=== PATIENT | female | born 1940 | race Caucasian/White ===

== ENCOUNTER 2019-01-18 13:37 | Observation (INO) ==
--- NOTE | 2019-01-18 15:55 | Consult Report ---
History of Present Illness Consult date: 01/18/19 Requesting physician: Jim Mac Consult reason: chest pain Chief complaint: Unstable angina Additional Medical History:: 1. DM, insulin requiring 2. Hyperlipidemia 3. CAD A. [facility], 01/18/2019, LAD LISA 4. Hypertension 5. Hypothyroidism History of present illness: 78 yo WF with onset of SS CP with radiation into shoulder and down left arm with associated SOA. Symptoms resolved after one SL NTG en route to ER. She was kept overnight at [facility] with normal troponins. She was released this AM and after discussing with Dr. Bhandari, she was told to come to [facility] for further evaluation. She was taken to cardiac pharmacy laboratory technician and subsequently had LISA to LAD. Currently she is resting in post op area. [facility] History Medical History: Reports:: Cancer, Diabetes Mellitus Type 2, Hyperlipidemia *Have you ever received a pneumonia vaccine?: Yes *Have you received a flu vaccine this season?: Yes Other Medical History: Reports: Hypothyroidism Laterality Cases: Left: Mastectomy Other Surgeries: Yes: Angioplasty Fractures: Yes (ankle) - *Social History Educational Level: Completed College Smoking Status: Never smoker Alcohol Intake: never Substance Use Type: denies use *Occupational Status:: retired Household Members: spouse *Travel in the last 8 weeks: None - Psychiatric History Expresses thoughts of harming self/others: None Suicide Plan Description: No Plan Family Hx:: Heart Attack Meds Home Medications Medication Instructions Recorded Confirmed Type carvedilol 12.5 mg tablet 12.5 mg PO BID #60 tab 10/22/17 Rx furosemide 40 mg tablet 40 mg PO BID #60 tab 10/22/17 Rx insulin human U-100 NPH-regulr 14 unit SUB-Q QAM ml 10/22/17 History 70-30 mix 100 unit/mL subcutaneous susp insulin human U-100 NPH-regulr 16 unit SUB-Q BID ml 10/22/17 History 70-30 mix 100 unit/mL subcutaneous susp insulin human U-100 NPH-regulr 20 unit SUB-Q .Lunch ml 10/22/17 History 70-30 mix 100 unit/mL subcutaneous susp levothyroxine 100 mcg capsule 100 mcg PO DAILY cap 10/22/17 History lisinopril 20 mg tablet 20 mg PO DAILY tab 10/22/17 History spironolactone 100 mg tablet 100 mg PO DAILY #30 tab 10/22/17 Rx Allergies Allergy/AdvReac Type Severity Reaction Status Date / Time No Known Allergies Allergy Verified 10/22/17 09:36 Review of Systems - *Cardiovascular Reports chest pain, Reports shortness of breath - *Respiratory Reports shortness of breath - *Gastrointestinal Denies abdominal pain, Denies nausea, Denies vomiting - *Genitourinary Denies blood in urine - *Musculoskeletal Denies joint pain, Denies back pain - *Neurologic Denies abnormal speech, Denies fainting, Denies tingling Exam Vital signs and Labs for Last 24 Hours: Pulse Resp BP Pulse Ox 87 18 102/47 L 96 01/18/19 15:50 01/18/19 15:50 01/18/19 15:50 01/18/19 15:50 Laboratory Results - last 24 hr 01/18/19 15:13: Activated Clotting Time > 400 H* I & O for Last 24 hours: Intake & Output 01/16/19 01/17/19 01/18/19 01/19/19 11:59 11:59 11:59 11:59 Weight 215 lb - *Routine HEENT Exam Head: Present: normocephalic Eye: Present: EOMI, PERRL ENT: Present: mucous membranes moist - *Routine Neck Exam Present: supple. Absent: JVD, carotid bruit - *Routine Respiratory Exam Present: CTA bilaterally. Absent: accessory muscle use, rales, rhonchi, wheezes - *Routine Cardiovascular Exam Present: RRR. Absent: murmur, gallop, rubs - *Routine Abdominal Exam Present: soft. Absent: tenderness, distended, guarding - *Routine Extremities Exam Present: edema. Absent: calf tenderness - *Routine Neurological Exam Present: alert, oriented X3, moving all extremities Assessment and Plan (1) Angina, class III Current visit: No Status: Acute Category: Medical Code(s): I20.9 - Angina pectoris, unspecified (2) IDDM (insulin dependent diabetes mellitus) Current visit: Yes Status: Acute Category: Medical Code(s): E11.9 - Type 2 diabetes mellitus without complications; Z79.4 - retirement (current) use of insulin (3) Obesity (BMI 30-39.9) Current visit: Yes Status: Acute Category: Medical Code(s): E66.9 - Obesity, unspecified (4) Hyperlipidemia associated with type 2 diabetes mellitus Current visit: Yes Status: Acute Category: Medical Code(s): E11.69 - Type 2 diabetes mellitus with other specified complication; E78.5 - Hyperlipidemia, unspecified (5) HTN (hypertension) Current visit: No Status: Chronic Category: Medical Code(s): I10 - Essential (primary) hypertension - Assessment and plan all Dx Assessment and Plan for all problems:: 1. ASA and brilinta for LISA to LAD 2. Atorvastatin for hyperlipidemia 3. Borderline low BP, hold anti-anginals for now. Consider ranexa for coronary spasm pain. 4. Get echo in AM.
[2019-01-18 19:39] LABS: Basophils % 0.4 % (0.1-2.0); Eosinophils % 0.5 % (0.1-12.0); Hematocrit 39.4 % (37.0-47.0); Hemoglobin 12.7 g/dL (12.2-16.2); Lymphocytes % 13.8 % (10-50); Mean Corpuscular HGB Conc 32.3 g/dL (31.8-35.4); Mean Corpuscular Volume 87.6 fl (81-99); Mean Platelet Volume 7.9 fl (7.4-10.4); Monocytes # 0.3 K/mm3 (0.1-1.0); Monocytes % 4.8 % (1.7-9.3); Neutrophils # 5.6 K/mm3 (1.8-7.8); Neutrophils % 80.6 % (37.0-80.0); Platelet Count 190 K/mm3 (142-424); Red Cell Distribution Width 13.8 % (11.5-17.5)
[2019-01-18 19:54] LABS: Anion Gap 14.7 mEq/L (5-15); Calcium 8.4 mg/dL (8.5-10.1)
--- NOTE | 2019-01-18 20:20 | History & Physical Report ---
*Admission Date: 01/18/19 *Chief complaint: chest pain *History of present illness: this wf was sent for card eval-ief complaint: Unstable angina Additional Medical History:: 1. DM, insulin requiring 2. Hyperlipidemia 3. CAD A. [facility], 01/18/2019, LAD LISA 4. Hypertension 5. Hypothyroidism History of present illness: 78 yo WF with onset of SS CP with radiation into shoulder and down left arm with associated SOA. Symptoms resolved after one SL NTG en route to ER. She was kept overnight at [facility] with normal troponins. She was released this AM and after discussing with Dr. Bhandari, she was told to come to [facility] for further evaluation. She was taken to cardiac coreroom foundry laborer and subsequently had LISA to LAD. Currently she is resting in post op area. [facility] History I have reviewed the patient's past medical history: Yes Medical History: Reports:: Cancer, Diabetes Mellitus Type 2, Hyperlipidemia *Have you ever received a pneumonia vaccine?: Yes *Have you received a flu vaccine this season?: Yes Other Medical History: Reports: Hypothyroidism Laterality Cases: Left: Mastectomy Other Surgeries: Yes: Angioplasty Fractures: Yes (ankle) - *Social History Educational Level: Completed College Smoking Status: Never smoker Alcohol Intake: never Substance Use Type: denies use *Occupational Status:: retired Household Members: spouse *Travel in the last 8 weeks: None - Psychiatric History Expresses thoughts of harming self/others: None Suicide Plan Description: No Plan Family Hx:: Heart Attack Review of Systems - Review of Systems Review of systems:: pertinent systems reviewed and negative unless documented below - Constitutional Denies fever(s) - Eyes Denies change in vision - ENT Denies sore throat - *Cardiovascular Reports chest pain at rest - *Respiratory Denies cough - *Gastrointestinal Denies abdominal pain - *Genitourinary Denies blood in urine - *Musculoskeletal Denies joint pain - Integumentary/Breasts Denies rash - *Neurologic Denies abnormal speech, Denies fainting, Denies tingling - Psychiatric Denies anxiety Meds Home Medications Medication Instructions Recorded Confirmed Type Insulin Glargine,Hum.rec.anlog 14 unit SQ HS 01/18/19 01/18/19 History [Gerardo Rios] Insulin NPH Hum/Reg Insulin Hm 10 unit SQ DIRECTED 01/18/19 01/18/19 History [Novolin 70-30 100 Unit/ml Vial] Levothyroxine Sodium 150 mcg PO DAILY 01/18/19 01/18/19 History [Levothyroxine 150mcg (0.15mg) Tab] Metformin HCl 1,000 mg PO BID 01/18/19 01/18/19 History Allergies Allergy/AdvReac Type Severity Reaction Status Date / Time No Known Allergies Allergy Verified 10/22/17 09:36 Exam Vital signs and Labs for Last 24 Hours: Pulse Resp BP Pulse Ox 71 16 129/65 94 L 01/18/19 18:50 01/18/19 18:50 01/18/19 18:50 01/18/19 18:50 Laboratory Results - last 24 hr 01/18/19 15:13: Activated Clotting Time > 400 H* 01/18/19 15:48: POC Glucose 136 H 01/18/19 19:26: WBC 7.0, RBC 4.50, Hgb 12.7, Hct 39.4, MCV 87.6, MCH 28.3, MCHC 32.3, RDW 13.8, Plt Count 190, MPV 7.9, Neut % (Auto) 80.6 H, Lymph % (Auto) 13.8, [place] % (Auto) 4.8, Eos % (Auto) 0.5, Baso % (Auto) 0.4, Neut # (Auto) 5.6, Lymph # (Auto) 1.0, [place] # (Auto) 0.3, Eos # (Auto) 0.0, Baso # (Auto) 0.0 01/18/19 19:26: Sodium 140, Potassium 4.7, Chloride 103, Carbon Dioxide 27, Anion Gap 14.7, BUN 18, Creatinine 1.06 H, Estimated Creat Clear 70, Estimated GFR 50 L, Est GFR ( Amer) 61, Glucose 273 H, Calcium 8.4 L 01/18/19 19:26: Troponin I 0.08 H I & O for Last 24 hours: Intake & Output 01/16/19 01/17/19 01/18/19 01/19/19 11:59 11:59 11:59 11:59 Intake Total 360 / 360 Output Total 450 / 450 Balance -90 / -90 Weight 215 lb - Constitutional no acute distress, obese - *Routine HEENT Exam Head: Present: normocephalic Eye: Present: EOMI, PERRL ENT: Present: mucous membranes dry - *Routine Neck Exam Present: supple - *Routine Respiratory Exam Present: CTA bilaterally - *Routine Cardiovascular Exam Present: RRR, murmur, S4 - *Routine Abdominal Exam Present: soft - *Routine Extremities Exam Absent: calf tenderness - *Routine Skin Exam Present: intact - *Routine Neurological Exam Present: alert, oriented X3, CN II-XII intact - Routine Psychiatric Exam Present: normal affect Assessment and Plan (1) Angina, class III Current visit: No Status: Acute Category: Medical Code(s): I20.9 - Angina pectoris, unspecified (2) IDDM (insulin dependent diabetes mellitus) Current visit: Yes Status: Acute Category: Medical Code(s): E11.9 - Type 2 diabetes mellitus without complications; Z79.4 - detention (current) use of insulin (3) Obesity (BMI 30-39.9) Current visit: Yes Status: Acute Category: Medical Code(s): E66.9 - Obesity, unspecified (4) Hyperlipidemia associated with type 2 diabetes mellitus Current visit: Yes Status: Acute Category: Medical Code(s): E11.69 - Type 2 diabetes mellitus with other specified complication; E78.5 - Hyperlipidemia, unspecified (5) HTN (hypertension) Current visit: No Status: Chronic Category: Medical Code(s): I10 - Essential (primary) hypertension (6) Hypothyroidism (acquired) Current visit: Yes Status: Acute Category: Medical Code(s): E03.9 - Hypothyroidism, unspecified (7) Elevated troponin I level Current visit: Yes Status: Acute Category: Medical Code(s): R74.8 - A bnormal levels of other serum enzymes
[2019-01-19 06:47] LABS: Anion Gap 12.1 mEq/L (5-15); Calcium 8.2 mg/dL (8.5-10.1); Chol/HDL Ratio 3.5 (1-3.5)
--- NOTE | 2019-01-19 07:25 | Pharmacy Consult Notes ---
[facility] Pharmacy VTE Monitoring - Patient Demographics Admission date: 01/18/19 Report Date: 01/19/19 Time: 07:25 Allergies/Adverse Reactions: Patient Allergies No Known Allergies Allergy (Verified 10/22/17 09:36) Height: 1.65 m Weight: 98.231 kg Patient Problems: Current Active Problems (Updated 01/18/19 @ 20:24 by Jim aMc MD) IDDM (insulin dependent diabetes mellitus) (Acute) Obesity (BMI 30-39.9) (Acute) Hyperlipidemia associated with type 2 diabetes mellitus (Acute) Hypothyroidism (acquired) (Acute) Elevated troponin I level (Acute) - VTE Risk Labs: VTE Related Lab Results Hgb 12.7 g/dL (12.2-16.2) 01/18/19 19:26 Hct 39.4 % (37.0-47.0) 01/18/19 19:26 Plt Count 190 K/mm3 (142-424) 01/18/19 19:26 BUN 24 mg/dL (7-18) H D 01/19/19 05:35 Creatinine 1.07 mg/dL (0.55-1.02) H 01/19/19 05:35 Estimated Creat Clear 69 mL/min (50-200) 01/19/19 05:35 Was VTE Risk Assessment Performed: Yes VTE Score: 2 VTE Risk Level: Very Low Risk - Prophylaxis VTE Prophylaxis Ordered?: Yes Types of VTE Prophylaxis: TEDS Knee High Location of Applied Device: Bilateral Lower Extremeties - VTE Diagnosis Confirmed Treatment or plan recommended: Continue Current Treatment
[2019-01-19 08:15] VITALS: BP 133/85
--- NOTE | 2019-01-19 08:20 | Progress Note ---
Subjective Date: 01/19/19 Time: 08:17 Principal diagnosis: Unstable angina Interval history: 78-year-old white female in bed in no acute distress. Patient states she feels much better since the coronary stent was placed. She feels ready to go home. Exam Vital signs and Labs for Last 24 Hours: Temp Pulse Resp BP Pulse Ox 97.6 F 70 16 133/85 93 L 01/19/19 07:53 01/19/19 08:14 01/19/19 08:14 01/19/19 08:14 01/19/19 08:14 Laboratory Results - last 24 hr 01/18/19 15:13: Activated Clotting Time > 400 H* 01/18/19 15:48: POC Glucose 136 H 01/18/19 19:26: WBC 7.0, RBC 4.50, Hgb 12.7, Hct 39.4, MCV 87.6, MCH 28.3, MCHC 32.3, RDW 13.8, Plt Count 190, MPV 7.9, Neut % (Auto) 80.6 H, Lymph % (Auto) 13.8, [place] % (Auto) 4.8, Eos % (Auto) 0.5, Baso % (Auto) 0.4, Neut # (Auto) 5.6, Lymph # (Auto) 1.0, [place] # (Auto) 0.3, Eos # (Auto) 0.0, Baso # (Auto) 0.0 01/18/19 19:26: Sodium 140, Potassium 4.7, Chloride 103, Carbon Dioxide 27, Anion Gap 14.7, BUN 18, Creatinine 1.06 H, Estimated Creat Clear 70, Estimated GFR 50 L, Est GFR ( Amer) 61, Glucose 273 H, Calcium 8.4 L 01/18/19 19:26: Troponin I 0.08 H 01/18/19 20:24: POC Glucose 300 H 01/19/19 05:35: Sodium 142, Potassium 4.1, Chloride 105, Carbon Dioxide 29, Anion Gap 12.1, BUN 24 H D, Creatinine 1.07 H, Estimated Creat Clear 69, Estimated GFR 50 L, Est GFR ( Amer) 60, Glucose 147 H D, Calcium 8.2 L, Triglycerides 72, Cholesterol 149, LDL Cholesterol 93, VLDL Cholesterol 14, HDL Cholesterol 42, Cholesterol/HDL Ratio 3.5 01/19/19 06:12: POC Glucose 149 H I & O for Last 24 hours: Intake & Output 01/16/19 01/17/19 01/18/19 01/19/19 11:59 11:59 11:59 11:59 Intake Total 720 / 720 Output Total 450 / 450 Balance 270 / 270 Weight 216 lb 9 oz - *Routine HEENT Exam Head: Present: normocephalic Eye: Present: EOMI, PERRL ENT: Present: mucous membranes moist - *Routine Respiratory Exam Present: CTA bilaterally. Absent: accessory muscle use, rales, rhonchi, wheezes - *Routine Cardiovascular Exam Present: RRR. Absent: murmur, gallop, rubs - *Routine Extremities Exam Absent: edema, calf tenderness - *Routine Neurological Exam Present: alert, oriented X3, moving all extremities Progress Note: A&P (1) Angina, class III Status: Acute Current Visit: No (2) IDDM (insulin dependent diabetes mellitus) Status: Acute Current Visit: Yes (3) Obesity (BMI 30-39.9) Status: Acute Current Visit: Yes (4) Hyperlipidemia associated with type 2 diabetes mellitus Status: Acute Current Visit: Yes (5) HTN (hypertension) Status: Chronic Current Visit: No (6) Hypothyroidism (acquired) Status: Acute Current Visit: Yes (7) Elevated troponin I level Status: Acute Current Visit: Yes Assessment and Plan for All Diagnoses:: 1. Okay for discharge from cardiology standpoint 2. Home medications including Coreg 12.5 mg twice daily Lisinopril 20 mg daily Lasix 40 mg twice daily Spironolactone 100 mg daily Aspirin 81 mg daily Brilinta 90 mg twice daily Atorvastatin 40 mg daily Ranexa 500 mg twice daily 3. Follow-up in our office in 1 week.
--- NOTE | 2019-01-19 08:49 | Discharge Summary ---
General - General Admission date:: 01/18/19 Discharge date: 01/19/19 HPI HPI: 78-year-old female patient resting quietly in bed. Reports no chest pain, respirations easy even. Reports she is ready to go home ttoday. 78 yo WF with onset of SS CP with radiation into shoulder and down left arm with associated SOA. Symptoms resolved after one SL NTG en route to ER. She was kept overnight at [facility] with normal troponins. She was released this AM and after discussing with Dr. Bhandari, she was told to come to [facility] for further evaluation. She was taken to cardiac electroplating laborer and subsequently had LISA to LAD. Currently she is resting in post op area. Hospital Course Hospital Course: 78 yo WF with onset of SS CP with radiation into shoulder and down left arm with associated SOA. Symptoms resolved after one SL NTG en route to ER. She was kept overnight at [facility] with normal troponins. She was released this AM and after discussing with Dr. Bhandari, she was told to come to [facility] for further evaluation. She was taken to cardiac electroplating laborer and subsequently had LISA to LAD. (Per Earle) Objective Vital signs: Temp Pulse Resp BP Pulse Ox 97.6 F 84 16 133/85 93 L 01/19/19 07:53 01/19/19 08:42 01/19/19 08:42 01/19/19 08:14 01/19/19 08:14 no acute distress, obese - *Routine HEENT Exam Head: Present: normocephalic. Absent: tenderness of temporal artery Eye: Present: EOMI, PERRL, normal accommodation. Absent: conjunctivae pink ENT: Present: mucous membranes dry. Absent: sinus tenderness - *Routine Neck Exam Present: trachea midline. Absent: tenderness - *Routine Respiratory Exam Present: CTA bilaterally. Absent: accessory muscle use, respiratory distress - *Routine Cardiovascular Exam Present: murmur. Absent: tachycardia, JVD - *Routine Abdominal Exam Present: soft, normoactive bowel sounds. Absent: tenderness - *Routine Extremities Exam Present: full ROM, pulses intact. Absent: cyanosis, pallor - Routine Back/Spine/Pelvis Exam Back/Spine: Present: full ROM. Absent: CVA tenderness - *Routine Skin Exam Present: intact, warm. Absent: cyanosis - *Routine Neurological Exam Present: alert, oriented X3, CN II-XII intact. Absent: sensory deficit - Routine Psychiatric Exam Present: normal affect, normal thought process. Absent: visual hallucinations Results Labs on day of discharge: Labs from last 24 hours 01/19/19 01/19/19 01/18/19 06:12 05:35 20:24 WBC RBC Hgb Hct MCV MCH MCHC RDW Plt Count MPV Neut % (Auto) Lymph % (Auto) [place] % (Auto) Eos % (Auto) Baso % (Auto) Neut # (Auto) Lymph # (Auto) [place] # (Auto) Eos # (Auto) Baso # (Auto) Activated Clotting Time Sodium 142 Potassium 4.1 Chloride 105 Carbon Dioxide 29 Anion Gap 12.1 BUN 24 H D Creatinine 1.07 H Estimated Creat Clear 69 Estimated GFR 50 L Est GFR ( Amer) 60 Glucose 147 H D POC Glucose 149 H 300 H Calcium 8.2 L Troponin I Triglycerides 72 Cholesterol 149 LDL Cholesterol 93 VLDL Cholesterol 14 HDL Cholesterol 42 Cholesterol/HDL Ratio 3.5 01/18/19 01/18/19 01/18/19 19:26 19:26 19:26 WBC 7.0 RBC 4.50 Hgb 12.7 Hct 39.4 MCV 87.6 MCH 28.3 MCHC 32.3 RDW 13.8 Plt Count 190 MPV 7.9 Neut % (Auto) 80.6 H Lymph % (Auto) 13.8 [place] % (Auto) 4.8 Eos % (Auto) 0.5 Baso % (Auto) 0.4 Neut # (Auto) 5.6 Lymph # (Auto) 1.0 [place] # (Auto) 0.3 Eos # (Auto) 0.0 Baso # (Auto) 0.0 Activated Clotting Time Sodium 140 Potassium 4.7 Chloride 103 Carbon Dioxide 27 Anion Gap 14.7 BUN 18 Creatinine 1.06 H Estimated Creat Clear 70 Estimated GFR 50 L Est GFR ( Amer) 61 Glucose 273 H POC Glucose Calcium 8.4 L Troponin I 0.08 H Triglycerides Cholesterol LDL Cholesterol VLDL Cholesterol HDL Cholesterol Cholesterol/HDL Ratio 01/18/19 01/18/19 15:48 15:13 WBC RBC Hgb Hct MCV MCH MCHC RDW Plt Count MPV Neut % (Auto) Lymph % (Auto) [place] % (Auto) Eos % (Auto) Baso % (Auto) Neut # (Auto) Lymph # (Auto) [place] # (Auto) Eos # (Auto) Baso # (Auto) Activated Clotting Time > 400 H* Sodium Potassium Chloride Carbon Dioxide Anion Gap BUN Creatinine Estimated Creat Clear Estimated GFR Est GFR ( Amer) Glucose POC Glucose 136 H Calcium Troponin I Triglycerides Cholesterol LDL Cholesterol VLDL Cholesterol HDL Cholesterol Cholesterol/HDL Ratio - Additional Comments Rounded with Dr. Mac all orders per Dr. Mac 78 yo WF with onset of SS CP with radiation into shoulder and down left arm with associated SOA. Symptoms resolved after one SL NTG en route to ER. She was kept overnight at [facility] with normal troponins. She was released this AM and after discussing with Dr. Bhandari, she was told to come to [facility] for further evaluation. She was taken to cardiac electroplating laborer and subsequently had LISA to LAD. (Per Earle) Cardiology is seen this morning and the recommendations are as follows: 1. Okay for discharge from cardiology standpoint 2. Home medications including Coreg 12.5 mg twice daily Lisinopril 20 mg daily Lasix 40 mg twice daily Spironolactone 100 mg daily Aspirin 81 mg daily Brilinta 90 mg twice daily Atorvastatin 40 mg daily Ranexa 500 mg twice daily 3. Follow-up in our office in 1 week. (Per Fred Vilchis) Patient reports she will be following up with her primary care in [place] she will be calling for appointment today Patient will be discharged home today DS: Diagnosis - Discharge Diagnosis (1) Angina, class III Status: Acute (2) IDDM (insulin dependent diabetes mellitus) Status: Acute (3) Obesity (BMI 30-39.9) Status: Acute (4) Hyperlipidemia associated with type 2 diabetes mellitus Status: Acute (5) HTN (hypertension) Status: Chronic (6) Hypothyroidism (acquired) Status: Acute (7) Elevated troponin I level Status: Acute Discharge Plan - Patient Discharge Instructions ACTIVITY: Continue current activity DIET: continue same diet Patient Instructions: Angina, Cardiac Catheterization, DI for Cardiac Catheterization, DI for Surgical Site Infection, Surgical Site Infection, DI for Procedure with IV Contrast, Anticoagulation Care - Follow up Plan Follow up with: Tha Bhandari MD [Staff Physician] - 1 week Disposition: Home, Self-Fdc Medications: Home Medications Medication Instructions Recorded Confirmed Type Insulin Glargine,Hum.rec.anlog 38 units SQ HS 01/18/19 01/19/19 History [Gerardo Rios] Insulin NPH Hum/Reg Insulin Hm 10 unit SQ DIRECTED 01/18/19 01/18/19 History [Novolin 70-30 100 Unit/ml Vial] Levothyroxine Sodium 150 mcg PO DAILY 01/18/19 01/18/19 History [Levothyroxine 150mcg (0.15mg) Tab] Metformin HCl 1,000 mg PO BID 01/18/19 01/18/19 History Aspirin [Aspirin 81mg chewable 81 mg PO DAILY 30 Days #30 tab.chew 01/19/19 Rx tab] Atorvastatin Calcium [Lipitor 40mg 40 mg PO HS 30 Days #30 tab 01/19/19 Rx Tablet] Carvedilol [Coreg 12.5mg 12.5 mg PO BID 60 Days #60 tab 01/19/19 Rx Tablet] Lisinopril [Zestril 20mg tab] 20 mg PO DAILY 30 Days #30 tab 01/19/19 Rx Ranolazine [Ranexa 500mg ER tablet] 500 mg PO BID 60 Days #60 01/19/19 Rx tab.er.12h Spironolactone [Aldactone 25mg 100 mg PO DAILY 30 Days #30 tab 01/19/19 Rx Tab] Prescriptions/Medication Reconciliation: New Spironolactone [Aldactone 25mg Tab] 100 mg PO DAILY 30 Days #30 tab Aspirin [Aspirin 81mg chewable tab] 81 mg PO DAILY 30 Days #30 tab.chew Carvedilol [Coreg 12.5mg Tablet] 12.5 mg PO BID 60 Days #60 tab Ranolazine [Ranexa 500mg ER tablet] 500 mg PO BID 60 Days #60 tab.er.12h Lisinopril [Zestril 20mg tab] 20 mg PO DAILY 30 Days #30 tab Atorvastatin Calcium [Lipitor 40mg Tablet] 40 mg PO HS 30 Days #30 tab Continued Insulin NPH Hum/Reg Insulin Hm [Novolin 70-30 100 Unit/ml Vial] 10 unit SQ DIRECTED Metformin HCl 1,000 mg PO BID Insulin Glargine,Hum.rec.anlog [Toujeo Solostar] 38 units SQ HS Levothyroxine Sodium [Levothyroxine 150mcg (0.15mg) Tab] 150 mcg PO DAILY
[2019-01-19 09:17] LABS: Basophils % 0.6 % (0.1-2.0); Eosinophils # 0.1 K/mm3 (0.0-0.4); Eosinophils % 2.1 % (0.1-12.0); Hematocrit 39.2 % (37.0-47.0); Hemoglobin 12.7 g/dL (12.2-16.2); Lymphocytes # 1.3 K/mm3 (0.7-4.5); Lymphocytes % 20.3 % (10-50); Mean Corpuscular HGB Conc 32.3 g/dL (31.8-35.4); Mean Corpuscular Volume 87.9 fl (81-99); Mean Platelet Volume 8.3 fl (7.4-10.4); Monocytes # 0.5 K/mm3 (0.1-1.0); Monocytes % 7.4 % (1.7-9.3); Neutrophils # 4.4 K/mm3 (1.8-7.8); Neutrophils % 69.6 % (37.0-80.0); Platelet Count 182 K/mm3 (142-424); Red Blood Count 4.46 M/mm3 (4.20-5.40); Red Cell Distribution Width 13.9 % (11.5-17.5); White Blood Count 6.3 K/mm3 (4.8-10.8)
--- NOTE | 2019-01-19 22:07 | Cardiology Report ---
PROCEDURE: 2-D M-mode and color Doppler study INDICATIONS FOR THE TEST: Chest pain+ COPD Heart Murmur Tobacco Smoking Palpitations Fatigue Syncope Edema Hypertension+Diabetes Mellitus+ Rheumatic Fever SOB ABDUL Obesity+Hyperlipidemia+ Family History HD Additional History , LT MASECTOMY PATIENT INFORMATION HEIGHT: 65 WEIGHT:215 GENDER: Female B/P:102/47 2-D/M-MODE INTERPRETATION: 2-D MEASUREMENTS OBSERVED VALUES IN CMS Right Ventricular Dimension (RVDd) 3.7 Interventricular Septum (Thickness)(IVsd) 1.5 Left Ventricular Internal Dimensions(LVIDd) 4.7 Left Ventricular Posterior Wall (Thickness)(LVPWd) 1.1 Aortic Root 2.6 Aortic Cusp Separation 1.4 Left Atrial Dimensions (LAD) 3.8 2D 1. Left atrium is mildly enlarged, left ventricle is normal size, mild concentric left ventricular hypertrophy, visually estimated ejection fraction 55% with normal wall motion abnormality. 2. The right atrium and right ventricle are mildly enlarged with normal contractility. 3. The aortic valve is thickened and calcified, with restriction the leaflet mobility, morphologically there is at least moderate aortic stenosis. 4. The mitral and tricuspid valve leaflets are minimally thickened. 5. The pulmonic valve is poorly visualized. 6. No significant pericardial effusion noted. DOPPLER INTERROGATION: Doppler interrogation of the aortic, mitral and tricuspid valve reveals presence of increased velocities across the aortic valve, mean gradient is 10 mmHg represents mild aortic stenosis. There is no aortic insufficiency. Mild mitral and tricuspid regurgitation, tricuspid regurgitation velocity is inadequate for calculation of the right ventricular systolic pressure, grade 1 diastolic dysfunction seen with tissue Doppler evidence of raised left atrial pressure. Inferior vena cava is not well visualized. CONCLUSION: 1. Mildly enlarged left atrium, normal left ventricular size, mild concentric left ventricular hypertrophy, visually estimated ejection fraction 55% with no regional wall motion abnormality, grade 1 diastolic dysfunction seen with tissue Doppler evidence of raised left atrial pressure. 2. Thickened and calcified aortic valve morphologically there is moderate aortic stenosis, however the mean gradient across aortic valve is only 10 mmHg represents mild aortic stenosis. There is no aortic insufficiency. 3. Mild mitral and tricuspid regurgitation 4. No significant pericardial effusion noted.
== END 2019-01-19 10:30 | disposition home or self-care (01) ==
LOC: ICU → 2ND 16:19
PROVIDERS: ADMIT Emergency Medicine; ATTEND Emergency Medicine
DX: Z68.36 Body mass index [BMI] 36.0-36.9, adult; R74.8 Abnormal levels of other serum enzymes; Z79.84 Long term (current) use of oral hypoglycemic drugs; I10 Essential (primary) hypertension; E03.9 Hypothyroidism, unspecified; I25.118 Atherosclerotic heart disease of native coronary artery with other forms of angina pectoris; E11.69 Type 2 diabetes mellitus with other specified complication; E66.9 Obesity, unspecified; E78.5 Hyperlipidemia, unspecified; Z79.899 Other long term (current) drug therapy; Z79.4 Long term (current) use of insulin
CPT/HCPCS: 36415; 80048; 80061; 82962; 84484; 85025; 85347; 92943; 93306; 93458; 99152; 99153; C1725; C1769; C1876; C9607; G0378; J1644; J2405; Q9967

== ENCOUNTER → 2019-01-26 10:16 | Outpatient (CLI) | payer MEDICARE, SELFPAY ==
[2019-01-26 10:30] LABS: Hematocrit 41.8 % (37.0-47.0); Hemoglobin 13.3 g/dL (12.2-16.2)
[2019-01-26 11:53] LABS: Blood Urea Nitrogen 23 mg/dL (7-18); Creatinine,Serum 1.15 mg/dL (0.55-1.02); Estimated Glomerular Filt Rate 46 ml/min (>60); GFR (African American) 56 ML/MIN (>60)
== END ==
PROVIDERS: Visit Provider Emergency Medicine
DX: E11.65 Type 2 diabetes mellitus with hyperglycemia (principal); Z79.84 Long term (current) use of oral hypoglycemic drugs
CPT/HCPCS: 36415; 82565; 84520; 85014; 85018

== ENCOUNTER → 2019-09-22 07:54 | Outpatient (CLI) | payer MEDICARE, SELFPAY ==
--- NOTE | 2019-09-22 07:55 | CA_ITS ---
APPROVED REPORT Emergency Doctor: Romana Nava RVT Study Quality: Good Indications: Uncontrolled HTN, Risk Factors Hypertension Hyperlipidemia Diabetes Renal Artery Doppler Origin (R) 98.6/ cm/sec Proximal (R) 110.0/ cm/sec Mid (R) 140.7/ cm/sec Distal (R) 106.3/ cm/sec Renal Aorta Ratio (R) 1.22 Segmental A. (R) 65.7/30.0 cm/sec RI: 0.54 Segmental A. Sup (R) 53.1/15.6 cm/sec Segmental A. Mid (R) 65.7/30.0 cm/sec Segmental A. Inf (R) 36.0/17.2 cm/sec Origin (L) 77.9/ cm/sec Proximal (L) 66.4/ cm/sec Mid (L) 72.7/ cm/sec Distal (L) 99.9/ cm/sec Renal Aorta Ratio (L) 0.87 Segmental A. (L) 43.0/17.7 cm/sec RI: 0.58 Segmental A. Sup (L) 38.0/12.7 cm/sec Segmental A. Mid (L) 43.0/17.7 cm/sec Segmental A. Inf (L) 38.0/12.7 cm/sec Renal Measurements Kidney Size (R) 11.4x7.0 cm Cortical Thickness (R) 1.1 cm Kidney Size (L) 10.6x7.4 cm Cortical Thickness (L) 1.0 cm Findings Study suggests normal bilateral renal arteries, no evidence of stenosis seen. Multiple cysts seen in the right kidney the largest measuring 3.1 cm. Conclusion Study suggests normal bilateral renal arteries, no evidence of stenosis seen. Multiple cysts seen in the right kidney the largest measuring 3.1 cm. Electronically signed by : Klever Link, 09/22/2019 19:11:07
--- NOTE | 2019-09-22 08:26 | US_ITS ---
PROCEDURE: US KIDNEY CLINICAL INDICATION: R63.4 Abnormal weight loss COMPARISON: CA RENAL ARTERY DUPLEX from 09/22/2019 FINDINGS: The right kidney is 11.2 x 4.1 x 6.3 centimeters. There are 2 right renal cysts largest approximately 2.9 x 1.6 centimeters. The left kidney is 10.2 x 3.9 x 3.5 centimeters.. There are 3 cysts largest approximately 1.2 centimeters contain some internal echoes suggesting complication by hemorrhage or infection.. There is no solid renal lesion or obstruction. Incidental note is made of splenomegaly and multiple calcified splenic granulomas are noted. IMPRESSION: Bilateral renal cysts. Dictated by: Klever Link 09/22/2019 14:09 Electronically signed by Klever Link in [place] 09/22/2019 14:09
== END ==
PROVIDERS: PCP Family Medicine; Visit Provider Internal Medicine
DX: I10 Essential (primary) hypertension (principal); R63.4 Abnormal weight loss
CPT/HCPCS: 76770; 93976

== ENCOUNTER 2020-06-13 01:23 | Observation (INO) | payer MEDICARE, SELFPAY ==
[2020-06-13] VITALS (23 sets, daily range): BP systolic 111–139; BP diastolic 50–85; PULSE 60–84; RESP 16–20; TEMP 34.7–37.1; O2SAT 65–99; BMI 38.8
--- NOTE | 2020-06-13 | IR_ITS ---
APPROVED REPORT Patient Location: Inpatient PROCEDURES Left heart catheterization Left ventriculogram Selective coronary angiogram Drug-eluting stent deployment to the mid dominant circumflex artery INDICATION Coronary artery disease, Unstable angina Informed consent was obtained prior to the procedure. COMPLICATIONS none Estimated Blood Loss: less than 10 mls TECHNIQUE One percent lidocaine used to anesthetize the right anterior aspect of the wrist. The right radial artery was accessed via the Seldinger technique. A 6 [place] sheath was placed in the right radial artery. 2.5 mg of verapamil, 800 mcg of nitroglycerin, 1mg Lidocaine and 5000 U Heparin were given through the arterial sheath. The trap catheter was also used to perform left heart catheterization, left ventriculogram and selective coronary angiogram. At the end of the diagnostic angiogram therapeutic heparin was administered and a JL4 guide catheter was placed in the left main artery. A Choice PT extra-support wire was placed distally in the circumflex artery and a 3.5 x 18 mm resolute howard stent was deployed at 15 jose reducing the critical stenosis to 0%. SONAL-3 flow was present before and after the procedure. At the end of the procedure the apparatus was removed the sheath was removed good hemostasis was achieved using TR banding patient was transferred to the postop holding area stable condition ANGIOGRAPHIC RESULTS The left main artery Normal The left anterior descending artery Has a stent in the ostial proximal segment which is widely patent free of in-stent restenosis with excellent proximal distal transitioning. There is additional 10 to 20% stenosis in the mid LAD The circumflex artery Is a large co-dominant vessel and has proximal tandem 20% stenoses followed by a critical greater than 90% stenosis immediately proximal to 3 obtuse marginal arteries. The right coronary artery Is a codominant vessel and has proximal 30 to 40% concentric stenosis with mild luminal irregularities distally The FERNANDEZ ventriculogram reveals Hyperdynamic at 70% The left ventricular end-diastolic pressure 10 mmHg IMPRESSION Critical disease in a codominant circumflex artery Successful stenting of a critically diseased codominant circumflex artery reducing the critical stenosis to 0% Widely patent stent in the proximal LAD Mild to moderate disease in the codominant right coronary artery which is nonflow-limiting Slightly hyperdynamic ventricle consistent with diastolic dysfunction Normal LVEDP PLAN 1. Dual antiplatelet therapy 2. LDL less than 55 3. Treatment of diastolic dysfunction 4. Avoidance of tobacco products 5. Cardiac rehabilitation 6. Risk factor modification Electronically signed by : Tha Bhandari, 06/13/2020 11:07:03
--- NOTE | 2020-06-13 01:46 | PC.NURSE ---
patient up to floor via stretcher @ 01:20
--- NOTE | 2020-06-13 01:56 | PC.NURSE ---
0138- RECTAL TEMP 94.4; PLACED ON CHAR PAWS 0157- RECTAL TEMP: 95.1
--- NOTE | 2020-06-13 03:06 | PC.NURSE ---
0242- RECTAL TEMP: 95.6
--- NOTE | 2020-06-13 03:54 | PC.NURSE ---
REPORT RECEIVED FROM [facility] AT 2307 FROM [facility] REPORT RECEIVED ON ARRIVAL FROM EMS; REPORTED LAST FSBS: 170 PT. A&OX4 AND DOES NOT C/O PAIN, N/V/D, SOA OR DIZZINESS AT THIS TIME. REMAINS ON CHAR PAWS AT THIS TIME.
[2020-06-13 03:56] LABS: Chloride 110 mmol/L (98-107)
[2020-06-13 03:57] LABS: Basophils % 0.7 % (0.1-2.0); Eosinophils # 0.1 K/mm3 (0.0-0.4); Eosinophils % 2.3 % (0.1-12.0); Hemoglobin 11.6 g/dL (12.2-16.2); Lymphocytes # 0.9 K/mm3 (0.7-4.5); Lymphocytes % 18.8 % (10-50); Mean Corpuscular HGB Conc 33.3 g/dL (31.8-35.4); Mean Corpuscular Hemoglobin 30.7 pg (27.0-31.2); Mean Corpuscular Volume 92.3 fl (81-99); Monocytes # 0.3 K/mm3 (0.1-1.0); Monocytes % 5.2 % (1.7-9.3); Neutrophils # 3.5 K/mm3 (1.8-7.8); Neutrophils % 73.1 % (37.0-80.0); Platelet Count 181 K/mm3 (142-424); Potassium 3.8 mmoL/L (3.5-5.1); Red Blood Count 3.79 M/mm3 (4.20-5.40); Red Cell Distribution Width 13.8 % (11.5-17.5); Sodium 141 mmol/L (136-145); White Blood Count 4.8 K/mm3 (4.8-10.8)
[2020-06-13 03:59] LABS: Blood Urea Nitrogen 27 mg/dl (7-17); Creatinine Clearance Estimated 68 mL/min (50-200); Estimated Glomerular Filt Rate 61 ml/min (>60); GFR (African American) 73 ML/MIN (>60)
[2020-06-13 04:00] LABS: Anion Gap 11.8 mEq/L (5-15); Calcium 8.7 mg/dl (8.4-10.2); Carbon Dioxide 23 mmol/L (22.0-30.0); Chol/HDL Ratio 3.7 (1-3.5); Cholesterol 178 mg/dl (140-200); Glucose 188 mg/dl (74-100); HDL Cholesterol 48 mg/dl (40-60); Magnesium 1.9 mg/dl (1.6-2.3); Triglycerides 76 mg/dl (30-150); VLDL Cholesterol 15 mg/dL (0-40)
[2020-06-13 04:11] LABS: Direct LDL Cholesterol 97.98 mg/dL (100-129)
[2020-06-13 04:13] LABS: Coronavirus 19 IgG Antibody Negative (Negative); Coronavirus 19 IgM Antibody Negative (Negative); Troponin I < 0.01 ng/ml (0.00-0.034)
--- NOTE | 2020-06-13 04:54 | PC.NURSE ---
PT. OFF CHAR PAWS AT THIS TIME; 98.1 RECTAL TEMP; DIAPHORESIS NOTED
[2020-06-13 05:38] LABS: POC Glucose,Bedside 197 (70-110)
--- NOTE | 2020-06-13 07:26 | P.CONPHA_ITS ---
[facility] Pharmacy VTE Monitoring - Patient Demographics Admission date: 06/12/20 Report Date: 06/13/20 Time: 07:26 Allergies/Adverse Reactions: Patient Allergies No Known Allergies Allergy (Verified 09/27/19 09:15) Height: 1.55 m Weight: 93.213 kg - VTE Risk Labs: VTE Related Lab Results Hgb 11.6 g/dL (12.2-16.2) L 06/13/20 02:30 Hct 35.0 % (37.0-47.0) L 06/13/20 02:30 Plt Count 181 K/mm3 (142-424) 06/13/20 02:30 BUN 27 mg/dl (7-17) H 06/13/20 02:30 Creatinine 0.90 mg/dl (0.52-1.04) 06/13/20 02:30 Estimated Creat Clear 68 mL/min (50-200) 06/13/20 02:30 Was VTE Risk Assessment Performed: Yes VTE Score: 5 VTE Risk Level: Low Risk Clinical Trial Participant: No - Prophylaxis VTE Prophylaxis Ordered?: Yes Types of VTE Prophylaxis: TEDS Knee High
--- NOTE | 2020-06-13 07:53 | HMH.CNCARD ---
History of Present Illness Consult date: 06/13/20 Requesting physician: Jim Mac Consult reason: chest pain Chief complaint: chest pain Additional Medical History:: 1. 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 Hyperlipidemia A. LDL 97 with HDL 48 3. CAD A. LHC, 01/18/2019, LAD LISA 4. Hypertension A. Echo, 01/2019, Mild LAE, mild conc LVH with normal LV size and EF 55% with grade I DD. Thickened and calcified aortic valve with moderate with mean gradient is only 10 mm Hg representing mild . No aortic insufficiency. Mild MR and TR. B. Renal duplex and u/s, 09/2019, normal arteries with evidence of renal cysts up to 3.1 cm. 5. Hypothyroidism, on replacement History of present illness: 80-year-old white female with known coronary artery disease, hypertension and diabetes was admitted for 4 to 6 weeks of increasing exertional anterior chest pain with radiation into the arms associated with exertional shortness of breath that resolves with rest or sublingual nitroglycerin. Patient was admitted for limiting angina pectoris that is similar to what she experienced last year prior to her LAD stenting, troponins obtained overnight were within normal limits and EKG shows no acute ST segment changes. She has had no further chest pain overnight. Cardiology consulted for evaluation recommendations. [facility] History Medical History: Reports:: Cancer, Congestive Heart Failure, Coronary Artery Disease, Hyperlipidemia, Hypertension Denies:: Diabetes Mellitus Type 2, MRSA *Have you ever received a pneumonia vaccine?: Yes *Have you received a flu vaccine this season?: No Other Medical History: Reports: Hypothyroidism, Thyroid Disease Laterality Cases: Left: Mastectomy Other Surgeries: Yes: Angioplasty, Bariatric Surgery, Cardiac Catheterization, Cholecystectomy, Coronary Stent Amputation: No Fractures: Yes (ankle) - *Social History Last grade of school completed: Advanced degree Smoking Status: Never smoker Alcohol Intake: never Substance Use Type: denies use *Occupational Status:: retired Housing: house Household Members: spouse *Travel in the last 8 weeks: None Family Hx:: Cancer, Diabetes, Heart Attack, Hyperlipidemia, Hypertension, Thyroid Disorder Meds Home Medications Medication Instructions Recorded Confirmed Type Insulin Glargine,Hum.rec.anlog 14 units SQ BID 01/18/19 06/13/20 History [Gerardo Rios] Insulin NPH Hum/Reg Insulin Hm 10 unit SQ DIRECTED 01/18/19 06/13/20 History [Novolin 70-30 100 Unit/ml Vial] Levothyroxine Sodium 150 mcg PO DAILY 01/18/19 06/13/20 History [Levothyroxine 150mcg (0.15mg) Tab] atorvastatin 40 mg tablet 20 mg PO HS tab 03/01/19 06/13/20 History Amlodipine Besylate 5 mg PO DAILY 06/13/20 06/13/20 History Aspirin [Aspirin 81mg chewable 81 mg PO DAILY 06/13/20 06/13/20 History tab] Clopidogrel Bisulfate [Clopidogrel 75 mg PO DAILY 06/13/20 06/13/20 History 75mg Tab] Furosemide [Furosemide 20mg Tab*] 20 mg PO DAILY 06/13/20 06/13/20 History Lisinopril/Hydrochlorothiazide 2 tab PO HS 06/13/20 06/13/20 History [Lisinopril-Hctz 20-25 mg Tab*] Metformin HCl 1,000 mg PO BID 06/13/20 06/13/20 History carvediloL [Carvedilol 25mg Tab] 25 mg PO DAILY 06/13/20 06/13/20 History Allergies Allergy/AdvReac Type Severity Reaction Status Date / Time No Known Allergies Allergy Verified 09/27/19 09:15 Exam Vital signs and Labs for Last 24 Hours: Temp Pulse Resp BP Pulse Ox 98.8 F 70 19 139/68 99 06/13/20 07:43 06/13/20 07:43 06/13/20 07:43 06/13/20 07:43 06/13/20 07:43 Laboratory Results - last 24 hr 06/13/20 02:30: WBC 4.8, RBC 3.79 L, Hgb 11.6 L, Hct 35.0 L, MCV 92.3, MCH 30.7, MCHC 33.3, RDW 13.8, Plt Count 181, MPV 8.0, Neut % (Auto) 73.1, Lymph % (Auto) 18.8, [place] % (Auto) 5.2, Eos % (Auto) 2.3, Baso % (Auto) 0.7, Neut # (Auto) 3.5, Lymph # (Auto) 0.9, [place] # (Auto) 0.3, Eos # (Auto) 0.1, Baso # (Auto) 0.0 06/13/20 02
--- NOTE | 2020-06-13 08:00 | CA_ITS ---
APPROVED REPORT EXAM: Comprehensive 2D, Doppler, and color-flow Echocardiogram Automotive Sales Professional: Kiya Lainez RDCS Ht: 5 ft 1 in Wt: 205lbs BSA: 1.91 BP: 110/70 mmHg Indications: CP,MURMUR,HTN,HLP,DM,SOA 2D Dimensions LVOT 1.63 cm (M/F) 1.5-2.5 M-Mode Dimensions RVDd 2.04 cm (0.9-2.6) LA Diam 3.67 cm (1.9-4.0) LVDd 5.05 cm (3.5-5.7) Ao Diam 3.51 cm (2.0-3.7) LVDs 3.93 cm (3.5-5.7) IVSd 0.88 cm (0.6-1.1) PWd 0.88 cm (0.6-1.1) EF (Teich) 44.50% FS 22.20% EDV (Teich) 121.00 mL ESV (Teich) 67.10 mL LV Diastology E Decel Time 350.00 (160-240 msec) E/A Ratio 0.8 MED E' 5.60 (< 7 cm/sec) E'/MED E' Ratio 21.27 (>14) LAT E' 9.10 (<10 cm/sec) E/LAT E' Ratio 13.09 (>14) Aortic Valve LVOT Max 116.00 (70-110 cm/s) LVOT VTI 33.06 cm AoV Peak Troy. 227.00 (50-130 cm/s) AO Peak GR. 20.80 mmHg AO Mean GR. 14.00 (<5 mmHg) AO VTI 58.99 (18-25 cm) ANANYA (VTI) 1.17 (2.5-4.5 cm2) Mitral Valve MV E Max Troy. 119.00 (40-130 cm/s) MV A Velocity 147.00 (40-130 cm/s) E/A Ratio 0.81 MV Decel. Time 350.00 (160-240 ms) MV PHT 103.00 ms Tricuspid Valve TR P. Velocity 228.00 cm/s RAP Estimate 10.00 mmHg RVSP 30.90 mmHg Left Ventricle Left atrium is mildly enlarged, left ventricle is normal size, mild concentric left ventricular hypertrophy, visually estimated ejection fraction 55% with no regional wall motion abnormality, grade 1 diastolic dysfunction seen with tissue Doppler evidence of raise left atrial pressure. Right Ventricle Right atrium and right ventricle are normal size and contractility. Aortic Valve Aortic valve is thickened and calcified with mean gradient across valve of 16 mmHg represents mild aortic stenosis, there is no significant aortic insufficiency. Mitral Valve Mitral valve has mitral annular calcification which extends in both anterior posterior mitral leaflet, there is no mitral stenosis, there is mild mitral regurgitation. Tricuspid Valve Tricuspid valve grossly normal, there is mild tricuspid regurgitation, tricuspid regurgitation jet velocity is inadequate for calculation of the right ventricular systolic pressure. Pulmonic Valve Pulmonic valve is poorly visualized. Great Vessels Aortic root is normal size. Pericardium No significant pericardial effusion noted. Conclusion 1. Mildly enlarged left atrium, normal left ventricular size, mild concentric left ventricular hypertrophy, visually estimated ejection fraction 55% with no regional wall motion abnormality, grade 1 diastolic dysfunction seen with tissue Doppler evidence of raise left atrial pressure. 2. Thickened and calcified aortic valve with mild aortic stenosis. 3. Mild mitral and tricuspid regurgitation. 4. No significant pericardial effusion noted. Electronically signed by : Glynn Alatorre, 06/14/2020 05:21:29
--- NOTE | 2020-06-13 09:21 | HMH.HP ---
*Admission Date: 06/12/20 *Chief complaint: Chest Pain *History of present illness: 80-year-old female patient transferred from [facility] ED where she was seen for increasing chest pain and shortness of breath radiating to her arms during exertion and resolving with rest or use of nitro. Patient was transferred from [facility] due to having appointment with Dr. Bhandari tomorrow regarding same complaints she does have a history of CAD, HTN, and DM. Troponins have been negative and EKG without ST segment changes, she reports no chest pain during the night awaiting cardiology to see Cardiology has seen and Rec: 1. Crescendo pattern of angina pectoris over the last 4 to 6 weeks in a patient with known coronary artery disease, diabetes, hypertension and hyperlipidemia. Patient is on 2 antianginals with episodes of hypotension at times. Would recommend proceeding with left heart catheterization for further evaluation. Continue aspirin therapy. 2. History of aortic stenosis, mild to moderate by echocardiogram 2018, repeat echocardiogram this a.m. pending 3. Diabetes mellitus, insulin requiring 4. Hyperlipidemia, on statin therapy, LDL is 97 with HDL 48 on atorvastatin therapy 5. Hypertension, controlled Further recommendations to follow pending above results. [facility] History Medical History: Reports:: Cancer, Congestive Heart Failure, Coronary Artery Disease, Hyperlipidemia, Hypertension Denies:: Diabetes Mellitus Type 2, MRSA *Have you ever received a pneumonia vaccine?: Yes *Have you received a flu vaccine this season?: No Other Medical History: Reports: Hypothyroidism, Thyroid Disease Laterality Cases: Left: Mastectomy Other Surgeries: Yes: Angioplasty, Bariatric Surgery, Cardiac Catheterization, Cholecystectomy, Coronary Stent Amputation: No Fractures: Yes (ankle) - *Social History Last grade of school completed: Advanced degree Smoking Status: Never smoker Alcohol Intake: never Substance Use Type: denies use *Occupational Status:: retired Housing: house Household Members: spouse *Travel in the last 8 weeks: None Family Hx:: Cancer, Diabetes, Heart Attack, Hyperlipidemia, Hypertension, Thyroid Disorder Review of Systems - Review of Systems Review of systems:: pertinent systems reviewed and negative unless documented below - Constitutional Denies anorexia, Denies chills - Eyes Denies blind spots, Denies loss of vision - ENT Denies abnormal hearing, Denies nasal congestion - *Cardiovascular Reports chest pain, Reports shortness of breath with activity - *Respiratory Reports shortness of breath with activity, Denies change in phlegm color, Denies chest congestion - *Gastrointestinal Denies abdominal pain, Denies loose stools - *Musculoskeletal Denies back pain, Denies joint swelling - Integumentary/Breasts Denies bleeding lesions, Denies sensitivity to light - *Neurologic Denies abnormal walking, Denies abnormal movements - Psychiatric Denies abnormal sleep pattern, Denies difficulty concentrating - Endocrine Denies cold intolerance, Denies heat intolerance - Hematologic/Lymphatic Denies easy bleeding, Denies easy bruising - Allergic/Immunologic Denies GI upset with certain foods, Denies tongue swelling Meds Home Medications Medication Instructions Recorded Confirmed Type Insulin Glargine,Hum.rec.anlog 14 units SQ BID 01/18/19 06/13/20 History [Gerardo Rios] Insulin NPH Hum/Reg Insulin Hm 10 unit SQ DIRECTED 01/18/19 06/13/20 History [Novolin 70-30 100 Unit/ml Vial] Levothyroxine Sodium 150 mcg PO DAILY 01/18/19 06/13/20 History [Levothyroxine 150mcg (0.15mg) Tab] atorvastatin 40 mg tablet 40 mg PO HS tab 03/01/19 06/13/20 History Amlodipine Besylate 5 mg PO DAILY 06/13/20 06/13/20 History Aspirin [Aspirin 81mg chewable 81 mg PO DAILY 30 Days #30 tab 06/13/20 Rx tab] Clopidogrel Bisulfate [Clopidogrel 75 mg PO DAILY 30 Days #30 tab 06/13/20 Rx 75mg Tab
[2020-06-13 11:27] LABS: CATHL Activated Clotting Time 251 SEC (74-125)
[2020-06-13 12:47] LABS: POC Glucose,Bedside 176 (70-110)
--- NOTE | 2020-06-13 14:49 | HMH.DCSUM ---
General - General Admission date:: 06/13/20 Discharge date: 06/13/20 HPI HPI: 80-year-old female patient transferred from [facility] ED where she was seen for increasing chest pain and shortness of breath radiating to her arms during exertion and resolving with rest or use of nitro. Patient was transferred from [facility] due to having appointment with Dr. Bhandari tomorrow regarding same complaints she does have a history of CAD, HTN, and DM. Troponins have been negative and EKG without ST segment changes, she reports no chest pain during the night awaiting cardiology to see Hospital Course Hospital Course: 10-year-old female patient transferred from [facility] ED where she was seen for increasing chest pain and shortness of breath radiating to her arms during exertion and resolving with rest or use of nitro. Patient was transferred from [facility] due to having appointment with Dr. Bhandari tomorrow regarding same complaints she does have a history of CAD, HTN, and DM. Troponins have been negative and EKG without ST segment changes, she reports no chest pain during the night awaiting cardiology to see 06/13/2020 patient underwent left heart catheterization and results: ANGIOGRAPHIC RESULTS The left main artery Normal The left anterior descending artery Has a stent in the ostial proximal segment which is widely patent free of in-stent restenosis with excellent proximal distal transitioning. There is additional 10 to 20% stenosis in the mid LAD The circumflex artery Is a large co-dominant vessel and has proximal tandem 20% stenoses followed by a critical greater than 90% stenosis immediately proximal to 3 obtuse marginal arteries. The right coronary artery Is a codominant vessel and has proximal 30 to 40% concentric stenosis with mild luminal irregularities distally The FERNANDEZ ventriculogram reveals Hyperdynamic at 70% The left ventricular end-diastolic pressure 10 mmHg IMPRESSION Critical disease in a codominant circumflex artery Successful stenting of a critically diseased codominant circumflex artery reducing the critical stenosis to 0% Widely patent stent in the proximal LAD Mild to moderate disease in the codominant right coronary artery which is nonflow-limiting Slightly hyperdynamic ventricle consistent with diastolic dysfunction Normal LVEDP PLAN 1. Dual antiplatelet therapy 2. LDL less than 55 3. Treatment of diastolic dysfunction 4. Avoidance of tobacco products 5. Cardiac rehabilitation 6. Risk factor modification Electronically signed by : Tha Bhandari, 06/13/2020 11:07:03 Resume home meds except hold metformin for 2 days. OK for discharge home tonight or in AM if she remains stable. Follow up in one week. Patient will be discharged home today 1. Plavix, ASA 2. Follow-up with cardiology in 1 week 3. Follow-up with primary care in 2 weeks 4. Hold Metformin for 2 days and then resume normal dosage Objective Vital signs: Temp Pulse Resp BP Pulse Ox 98.0 F 66 18 111/59 L 94 L 06/13/20 14:10 06/13/20 14:10 06/13/20 14:10 06/13/20 14:10 06/13/20 14:10 no acute distress - *Routine HEENT Exam Head: Present: normocephalic Eye: Present: EOMI ENT: Present: mucous membranes moist - *Routine Neck Exam Present: trachea midline. Absent: JVD, tracheal deviation - *Routine Respiratory Exam Present: CTA bilaterally. Absent: accessory muscle use - *Routine Cardiovascular Exam Present: RRR, murmur - *Routine Abdominal Exam Present: soft, normoactive bowel sounds. Absent: tenderness, firm - *Routine Extremities Exam Present: full ROM, pulses intact. Absent: calf tenderness - *Routine Skin Exam Present: intact, warm. Absent: erythema - *Routine Neurological Exam Present: alert, oriented X3. Absent: altered mental status - Routine Psychiatric Exam Present: normal affect, normal thought process. Absent: visual
--- NOTE | 2020-06-13 16:27 | HMH.PHACLD ---
Ginger Orquidea has received discharge medication counseling on the following medications: PATIENT CURRENTLY TAKING ASPIRIN 81 MG DAILY, ATORVASTATIN 40 MG HS, CARVEDILOL 25 MG BID, LISINOPRIL HCTZ 20/25 DAILY. PATIENT BEING STARTED ON CLOPIDOGREL 75 MG DAILY.
== END 2020-06-13 16:40 | disposition home or self-care (01) ==
PROVIDERS: Internal Medicine; Admitting Provider Emergency Medicine; PCP Family Medicine; Visit Provider Emergency Medicine
DX: I25.118 Atherosclerotic heart disease of native coronary artery with other forms of angina pectoris (principal); E11.9 Type 2 diabetes mellitus without complications; I11.0 Hypertensive heart disease with heart failure; I50.30 Unspecified diastolic (congestive) heart failure; I35.0 Nonrheumatic aortic (valve) stenosis; Z79.4 Long term (current) use of insulin; Z95.5 Presence of coronary angioplasty implant and graft; Z23 Encounter for immunization
CPT/HCPCS: G0008; 80048; 80061; 82962; 83735; 84484; 85025; 85347; 86328; 90686; 92928; 93306; 93458; 99152; 99153; C1725; C1769; C1876; C9600; G0378; J1644; Q9967

== ENCOUNTER → 2020-06-20 10:49 | Outpatient (CLI) | payer MEDICARE, SELFPAY ==
[2020-06-20 11:12] LABS: Blood Urea Nitrogen 23 mg/dl (7-17); Estimated Glomerular Filt Rate 54 ml/min (>60); GFR (African American) 65 ML/MIN (>60)
[2020-06-20 11:14] LABS: Hematocrit 34.5 % (37.0-47.0); Hemoglobin 11.2 g/dL (12.2-16.2)
== END ==
PROVIDERS: Visit Provider Emergency Medicine
DX: Z95.5 Presence of coronary angioplasty implant and graft (principal); D64.9 Anemia, unspecified
CPT/HCPCS: 36415; 82565; 84520; 85014; 85018

== ENCOUNTER 2020-10-03 12:03 | Day surgery (SDC) | payer MEDICARE, SELFPAY ==
[2020-10-03] VITALS (8 sets, daily range): BP systolic 117–163; BP diastolic 62–80; PULSE 64–74; RESP 16–20; TEMP 35.8–36.6; O2SAT 90–98; BMI 37.6
[2020-10-03 12:20] LABS: Basophils % 0.7 % (0.1-2.0); Eosinophils # 0.2 K/mm3 (0.0-0.4); Eosinophils % 4.2 % (0.1-12.0); Hematocrit 36.3 % (37.0-47.0); Hemoglobin 11.5 g/dL (12.2-16.2); Lymphocytes # 1.2 K/mm3 (0.7-4.5); Lymphocytes % 21.3 % (10-50); Mean Corpuscular HGB Conc 31.6 g/dL (31.8-35.4); Mean Corpuscular Volume 91.5 fl (81-99); Mean Platelet Volume 8.1 fl (7.4-10.4); Monocytes # 0.3 K/mm3 (0.1-1.0); Monocytes % 5.3 % (1.7-9.3); Neutrophils # 3.9 K/mm3 (1.8-7.8); Neutrophils % 68.6 % (37.0-80.0); Platelet Count 231 K/mm3 (142-424); Red Blood Count 3.96 M/mm3 (4.20-5.40); Red Cell Distribution Width 14.4 % (11.5-17.5); White Blood Count 5.7 K/mm3 (4.8-10.8)
[2020-10-03 12:28] LABS: Chloride 110 mmol/L (98-107); Sodium 144 mmol/L (136-145)
--- NOTE | 2020-10-03 12:28 | IR_ITS ---
APPROVED REPORT Patient Location: Outpatient [facility] Surgeon: MI Owen RT (R) PROCEDURES Left heart catheterization Left ventriculogram Selective coronary INDICATION Known coronary artery disease, Accelerated angina pectoris Informed consent was obtained prior to the procedure. COMPLICATIONS None Estimated Blood Loss: Less than 10 mls TECHNIQUE One percent lidocaine used to anesthetize the right anterior aspect of the wrist. The right radial artery was accessed via the Seldinger technique. A 6 Albanian sheath was placed in the right radial artery. 2.5 mg of verapamil, 800 mcg of nitroglycerin, 1mg Lidocaine and 5000 U Heparin were given through the arterial sheath. The Tenders.espa catheter was also used to perform left heart catheterization, left ventriculogram and selective coronary angiogram. At the end of the procedure the sheath was removed good hemostasis was achieved using Traclet band, patient was transferred to the postop holding area in stable condition. ANGIOGRAPHIC RESULTS The left main artery Normal The left anterior descending artery Has a stent in the ostial proximal segment which is widely patent free of in-stent restenosis with excellent proximal distal transitioning. The mid LAD is tortuous and free of stenosis. The first diagonal artery is a small to moderate size vessel and has an ostial 50 to 60% stenosis The circumflex artery Is a codominant vessel with proximal tandem 10 to 20% stenoses followed by mid vessel stent which is widely patent free of in-stent restenosis with excellent proximal and distal transitioning. There is a 2 mm terminal obtuse marginal artery with a proximal eccentric 50% stenosis The right coronary artery Is a codominant vessel and has a proximal 20 to 30% smooth stenosis with mid vessel 10% stenoses The FERNANDEZ ventriculogram reveals Normal slightly hyperdynamic at 65 to 70% The left ventricular end-diastolic pressure 20 mmHg IMPRESSION Patent coronary arteries Nonflow-limiting ischemic heart disease Slightly hyperdynamic ventricle consistent with diastolic dysfunction Mildly elevated LVEDP PLAN 1. Medical management for coronary disease 2. Treatment of diastolic dysfunction which is likely the etiology for patient's symptoms Electronically signed by : Tha Bhandari, 10/03/2020 14:03:01
[2020-10-03 12:31] LABS: Blood Urea Nitrogen 30 mg/dl (7-17); Calcium 9.9 mg/dl (8.4-10.2); Carbon Dioxide 26 mmol/L (22.0-30.0); Creatinine Clearance Estimated 68 mL/min (50-200); Estimated Glomerular Filt Rate 54 ml/min (>60); GFR (African American) 65 ML/MIN (>60); Glucose 75 mg/dl (74-100)
[2020-10-03 12:50] LABS: Coronavirus 19 IgG Antibody Negative (Negative); Coronavirus 19 IgM Antibody Negative (Negative)
== END 2020-10-03 15:53 | disposition home or self-care (01) ==
PROVIDERS: Internal Medicine; PCP Family Medicine; Visit Provider Physician Assistant
DX: E11.9 Type 2 diabetes mellitus without complications (principal); E66.9 Obesity, unspecified; I11.0 Hypertensive heart disease with heart failure; R00.2 Palpitations; R06.02 Shortness of breath; R60.0 Localized edema; R94.31 Abnormal electrocardiogram [ECG] [EKG]; I50.32 Chronic diastolic (congestive) heart failure; I25.118 Atherosclerotic heart disease of native coronary artery with other forms of angina pectoris
CPT/HCPCS: 36415; 80048; 85025; 86328; 93458; 99152; C1725; C1769; J1644; Q9967

== ENCOUNTER 2021-01-15 16:10 | Observation (INO) | payer MEDICARE, SELFPAY ==
[2021-01-15] VITALS (9 sets, daily range): BP systolic 94–163; BP diastolic 45–76; PULSE 54–95; RESP 18; TEMP 36.9; O2SAT 95–99; BMI 40.0; BMI 39.6
--- NOTE | 2021-01-15 15:58 | ECG_ITS ---
APPROVED REPORT Exam: Resting ECG HR:100 bpm ECG Measurements Heart Rate 100 AXES WI 128 P 39 QRSd 82 QRS -50 QT 364 T 78 QTc 469 Conclusion Sinus rhythm with premature atrial complexes Left anterior fascicular block Abnormal ECG Electronically signed by : Olivier Currie, 01/16/2021 08:18:41
--- NOTE | 2021-01-15 16:14 | XR_ITS ---
PROCEDURE: XR CHEST 2V CLINICAL HISTORY: CHEST PAIN COMPARISON: No exams were available for comparison FINDINGS: Heart is mildly enlarged and there is mild pulmonary vascular congestion. No definite focal infiltrate. No pleural effusion or pneumothorax. Old healed fracture the left mid rib noted. Some left axillary angela are present. IMPRESSION: Mild cardiomegaly with mild pulmonary vascular congestion. Dictated by: Sheldon Maciel 01/15/2021 17:09 Sheldon Maciel in OV 01/15/2021 17:09
--- NOTE | 2021-01-15 16:25 | PC.NURSE ---
Pt to rad.
[2021-01-15 16:28] LABS: Basophils % 0.4 % (0.1-2.0); Eosinophils # 0.1 K/mm3 (0.0-0.4); Eosinophils % 2.7 % (0.1-12.0); Hematocrit 28.5 % (37.0-47.0); Lymphocytes # 0.9 K/mm3 (0.7-4.5); Lymphocytes % 18.7 % (10-50); Mean Corpuscular HGB Conc 31.5 g/dL (31.8-35.4); Mean Corpuscular Hemoglobin 26.3 pg (27.0-31.2); Mean Corpuscular Volume 83.5 fl (81-99); Mean Platelet Volume 7.6 fl (7.4-10.4); Monocytes # 0.3 K/mm3 (0.1-1.0); Monocytes % 5.6 % (1.7-9.3); Neutrophils # 3.6 K/mm3 (1.8-7.8); Neutrophils % 72.6 % (37.0-80.0); Platelet Count 281 K/mm3 (142-424); Red Blood Count 3.41 M/mm3 (4.20-5.40); Red Cell Distribution Width 15.2 % (11.5-17.5); White Blood Count 4.9 K/mm3 (4.8-10.8)
[2021-01-15 16:30] LABS: Chloride 111 mmol/L (98-107); Sodium 139 mmol/L (136-145)
[2021-01-15 16:31] LABS: Potassium 3.8 mmoL/L (3.5-5.1)
[2021-01-15 16:33] LABS: Blood Urea Nitrogen 21 mg/dl (7-17); Creatinine Clearance Estimated 70 mL/min (50-200); Estimated Glomerular Filt Rate 61 ml/min (>60); GFR (African American) 73 ML/MIN (>60)
[2021-01-15 16:34] LABS: Anion Gap 10.8 mEq/L (5-15); Calcium 7.9 mg/dl (8.4-10.2); Carbon Dioxide 21 mmol/L (22.0-30.0); Glucose 236 mg/dl (74-100)
--- NOTE | 2021-01-15 16:37 | HMH.EDCP ---
ED Disposition Clinical Impression: Unstable angina, Hyperlipidemia associated with type 2 diabetes mellitus, Obesity (BMI 30-39.9) CAD (coronary artery disease) Qualifiers: Coronary Disease-Associated Artery/Lesion type: augustine artery [place] vs. transplanted heart: augustine heart Associated angina: with other forms of angina Qualified Code(s): I25.118 - Atherosclerotic heart disease of [place] coronary artery with other forms of angina pectoris HTN (hypertension) Qualifiers: Hypertension type: essential hypertension Qualified Code(s): I10 - Essential (primary) hypertension Disposition: Admitted As Inpatient Condition on Discharge: Fair Referrals: Blair Lora [Primary Care Provider] - - Critical Care Critical Care Time: No Attestation: On 01/15/21, the high probability of a clinically significant, sudden or life threatening deterioration of the following system(s) required my full and direct attention, intervention and personal management. The time I documented below is in addition to time spent performing reported procedures but includes the following listed in this critical care notation. Medical Decision Making - Medical Records Medical records reviewed: Yes: I reviewed the patient's medical records. - Cristian Inquiry Pt receiving controlled substance: Yes Cristian was queried for this patient: No Reason not queried -: Emergent pt cond-no time Risks and benefits of using a controlled substance: were discussed with pt by me Vital Signs: 01/15/21 16:10 01/15/21 16:39 Temperature 98.5 F Temperature Source Oral Pulse Rate 76 Pulse Rate [Left Radial] 95 H Respiratory Rate 18 Blood Pressure 133/60 Blood Pressure [Right Arm] 163/76 H Blood Pressure Mean 84 Blood Pressure Mean [Right Arm] 105 Blood Pressure Source [Right Arm] Automatic Cuff Blood Pressure Position [Right Arm] Sitting 02 Sat by Pulse Oximetry 98 99 Oxygen Delivery Method Room Air - Lab Data Lab Results 01/15/21 16:13: WBC 4.9, RBC 3.41 L, Hgb 9.0 L, Hct 28.5 L, MCV 83.5, MCH 26.3 L, MCHC 31.5 L, RDW 15.2, Plt Count 281, MPV 7.6, Neut % (Auto) 72.6, Lymph % (Auto) 18.7, [place]cd[place] % (Auto) 5.6, Eos % (Auto) 2.7, Baso % (Auto) 0.4, Neut # (Auto) 3.6, Lymph # (Auto) 0.9, Mcdowell # (Auto) 0.3, Eos # (Auto) 0.1, Baso # (Auto) 0.0 01/15/21 16:13: Sodium 139, Potassium 3.8, Chloride 111 H, Carbon Dioxide 21 L, Anion Gap 10.8, BUN 21 H, Creatinine 0.90, Estimated Creat Clear 70, Estimated GFR 61, Est GFR ( Amer) 73, Glucose 236 H, Calcium 7.9 L, Troponin I < 0.01 01/15/21 16:13: NT-Pro-B Natriuret Pep 1220 H Result diagrams: 01/15/21 16:13 01/15/21 16:13 Orders (Tests/Meds): ED MEDICATIONS Discontinued Medications Generic Name Dose Route Start Last Admin Trade Name Freq PRN Reason Stop Dose Admin Morphine Sulfate 4 mg 01/15/21 16:16 01/15/21 16:50 Morphine 4mg/Ml Syringe IV 01/15/21 16:17 4 mg ONCE ONE Administration Nitroglycerin 0.4 mg 01/15/21 16:16 01/15/21 16:50 Nitroglycerin 0.4mg Sl Tablet SL 01/15/21 16:17 0.4 mg ONCE ONE Administration Ondansetron HCl 4 mg 01/15/21 16:16 01/15/21 16:48 Ondansetron 4mg/2ml Vial IV 01/15/21 16:17 4 mg ONCE ONE Administration ORDERS Category Date Time Status XR chest 2V Stat Exams 01/15/21 16:14 Taken PTT [Activated Partial Thrombo Time] Stat Lab 01/15/21 16:16 Ordered Prothrombin Time INR Stat Lab 01/15/21 16:17 Ordered Rapid PCR Covid and Flu A/B Stat Lab 01/15/21 16:55 Ordered Troponin I Q3H Lab 01/15/21 19:15 Ordered Troponin I Q3H Lab 01/15/21 22:15 Ordered - Radiology Data #1 Image(s): Chest Image Reviewed: Yes I reviewed the patient's radiology results, Yes I reviewed the patient's radiology image Preliminary Findings: Normal/NAD, No Fracture Seen - ECG Data Tracing #1 Normal ventricular rate of 100 bpm, CA interval 120 ms, normal QTC. Sinus rhythm with occasional premature atrial contraction, nonspeci
[2021-01-15 16:43] LABS: NT Pro Brain Natriuretic Pep. 1220 pg/mL (0-450)
[2021-01-15 16:49] LABS: Troponin I < 0.01 ng/ml (0.00-0.034)
--- NOTE | 2021-01-15 16:52 | PC.NURSE ---
Dr borrero speaking with Dr Bhandari.
--- NOTE | 2021-01-15 16:54 | PC.NURSE ---
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
[2021-01-15 17:14] LABS: Coronavirus 19, PCR Not Detected (NotDetected); Influenza A, PCR Not Detected (NotDetected); Influenza B, PCR Not Detected (NotDetected)
--- NOTE | 2021-01-15 17:47 | PC.NURSE ---
REPORT CALLED TO [employer]NA [employer]EL
[2021-01-15 18:14] LABS: Prothrombin Time 11.5 seconds (10.1-12.5)
[2021-01-15 18:21] LABS: INR 0.97 (0.9-1.1)
[2021-01-15 18:45] LABS: Activated Partial Thrombo Time 21.5 seconds (22.8-30.6)
--- NOTE | 2021-01-15 19:23 | HMH.HP ---
*Admission Date: 01/15/21 *Chief complaint: Chest pain *History of present illness: This 80-year-old white female has known coronary artery disease, diabetes, hyperlipidemia. She is a patient of Dr. lBair Lora in [facility]. She presented in the emergency room at [facility] today with complaints of chest pain which has been going on for about 5 days. She has had some shortness of breath. When the pain is acute she notices her heart racing. She has edema. The patient sees Dr. Bhandari for her cardiology care. She has had 2 coronary artery stents. She has a strong family history for coronary artery disease. As stated she is diabetic and takes insulin. She has had a gastric bypass Significant in recent history is right hip replacement on November 10. Her blood count dropped down to 7.2 hemoglobin. She received 1 unit of blood. She was hospitalized at [facility]. [facility] History Medical History: Reports:: Cancer, Congestive Heart Failure, Coronary Artery Disease (History of 2 stents), Diabetes Mellitus Type 2 (Use of insulin), Hyperlipidemia, Hypertension, Peripheral Artery Disease, Peripheral Vascular Disease Denies:: Internal Pacemaker, MRSA, Seizures *Have you ever received a pneumonia vaccine?: Yes *Have you received a flu vaccine this season?: Yes Other Medical History: Reports: Hypothyroidism, Thyroid Disease Laterality Cases: Left: Mastectomy Other Surgeries: Yes: Angioplasty (2 stents), Bariatric Surgery, Cardiac Catheterization, Cholecystectomy, Coronary Stent. No: Pacemaker Amputation: No Fractures: Yes (ankle) - *Social History Last grade of school completed: Advanced degree Smoking Status: Never smoker Alcohol Intake: never Substance Use Type: denies use *Occupational Status:: retired Housing: house Household Members: spouse *Travel in the last 8 weeks: None Family Hx:: Cancer, Diabetes, Heart Attack (Both parents with coronary artery disease and a sister.), Hyperlipidemia, Hypertension, Thyroid Disorder Comment: Four children. Apparently they are in good health. Review of Systems - Constitutional Denies body ache(s) - Eyes Denies change in vision - ENT Denies dizziness - *Cardiovascular Reports chest pain, Reports chest pain at rest, Reports shortness of breath, Reports shortness of breath with activity, Reports fast heart rate - *Respiratory Reports shortness of breath with activity, Denies chest congestion, Denies cough - *Gastrointestinal Denies abdominal pain - *Genitourinary Denies abnormal vaginal bleeding - *Musculoskeletal Reports joint pain - Integumentary/Breasts Reports change in skin color (Pale since hip surgery) - *Neurologic Denies headache(s) - Psychiatric Denies behavioral changes, Denies difficulty concentrating - Hematologic/Lymphatic Denies easy bleeding Meds Home Medications Medication Instructions Recorded Confirmed Type Insulin Glargine,Hum.rec.anlog 14 units SQ BID 01/18/19 01/15/21 History [Gerardo Rios] Insulin NPH Hum/Reg Insulin Hm 10 unit SQ DIRECTED 01/18/19 01/15/21 History [Novolin 70-30 100 Unit/ml Vial] Levothyroxine Sodium 150 mcg PO DAILY 01/18/19 01/15/21 History [Levothyroxine 150mcg (0.15mg) Tab] Aspirin [Aspirin 81mg chewable 81 mg PO DAILY 30 Days #30 tab 06/13/20 01/15/21 Rx tab] Clopidogrel Bisulfate [Clopidogrel 75 mg PO DAILY 30 Days #30 tab 06/13/20 01/15/21 Rx 75mg Tab] Fluticasone Propionate 1 spray NS DAILY 06/13/20 01/15/21 History Furosemide [Furosemide 20mg Tab*] 20 mg PO DAILY PRN 06/13/20 01/15/21 History Lisinopril/Hydrochlorothiazide 2 tab PO HS 06/13/20 01/15/21 History [Lisinopril-Hctz 20-25 mg Tab*] carvediloL [Carvedilol 25mg Tab] 25 mg PO BID 06/13/20 01/15/21 History Atorvastatin Calcium [Lipitor 80mg 80 mg PO DAILY 01/15/21 01/15/21 History Tablet*] Verapamil HCl [Verapamil ER] 240 mg PO DAILY 01/15/21 01/15/21 History Allergies Allergy/AdvRe
[2021-01-15 20:12] LABS: Basophils % 0.3 % (0.1-2.0); Eosinophils # 0.1 K/mm3 (0.0-0.4); Eosinophils % 2.9 % (0.1-12.0); Hematocrit 26.7 % (37.0-47.0); Hemoglobin 8.4 g/dL (12.2-16.2); Lymphocytes # 1.1 K/mm3 (0.7-4.5); Lymphocytes % 29.1 % (10-50); Mean Corpuscular HGB Conc 31.2 g/dL (31.8-35.4); Mean Corpuscular Hemoglobin 26.1 pg (27.0-31.2); Mean Corpuscular Volume 83.6 fl (81-99); Mean Platelet Volume 7.9 fl (7.4-10.4); Monocytes # 0.2 K/mm3 (0.1-1.0); Monocytes % 5.7 % (1.7-9.3); Neutrophils # 2.4 K/mm3 (1.8-7.8); Neutrophils % 61.9 % (37.0-80.0); Platelet Count 236 K/mm3 (142-424); Red Cell Distribution Width 15.2 % (11.5-17.5); White Blood Count 3.8 K/mm3 (4.8-10.8)
[2021-01-15 20:19] LABS: POC Glucose,Bedside 207 (70-110)
[2021-01-15 20:39] LABS: Troponin I < 0.01 ng/ml (0.00-0.034)
[2021-01-15 20:52] LABS: Iron 27 ug/dL (37-170)
[2021-01-15 20:53] LABS: Thyroid Stimulating Hormone 0.02 uIU/mL (0.465-4.68)
[2021-01-15 21:01] LABS: Total Iron Binding Capacity 325 ug/dL (265-497)
[2021-01-15 21:11] LABS: Vitamin B12 322 pg/mL (239-931)
[2021-01-15 23:18] LABS: Troponin I < 0.01 ng/ml (0.00-0.034)
[2021-01-16] VITALS (10 sets, daily range): BP systolic 116–152; BP diastolic 63–83; PULSE 60–87; RESP 14–16; TEMP 36.9–37; O2SAT 95–99; BMI 39.6
--- NOTE | 2021-01-16 00:20 | PC.NURSE ---
She reports occasional SOA. Denies pain including chest pain and nausea. She has been sleeping. Purewick placed to help with I&Os. Urine is yellow, clear. She is NPO.
[2021-01-16 05:49] LABS: Basophils % 0.9 % (0.1-2.0); Eosinophils # 0.2 K/mm3 (0.0-0.4); Eosinophils % 5.4 % (0.1-12.0); Hematocrit 26.7 % (37.0-47.0); Hemoglobin 8.5 g/dL (12.2-16.2); Lymphocytes # 1.1 K/mm3 (0.7-4.5); Lymphocytes % 27.1 % (10-50); Mean Corpuscular Volume 81.4 fl (81-99); Mean Platelet Volume 7.6 fl (7.4-10.4); Monocytes # 0.3 K/mm3 (0.1-1.0); Monocytes % 7.5 % (1.7-9.3); Neutrophils # 2.4 K/mm3 (1.8-7.8); Neutrophils % 59.1 % (37.0-80.0); Platelet Count 240 K/mm3 (142-424); Red Blood Count 3.28 M/mm3 (4.20-5.40); Red Cell Distribution Width 15.4 % (11.5-17.5)
[2021-01-16 05:55] LABS: Chloride 110 mmol/L (98-107); Sodium 140 mmol/L (136-145)
[2021-01-16 05:56] LABS: Potassium 3.5 mmoL/L (3.5-5.1)
[2021-01-16 05:58] LABS: Blood Urea Nitrogen 17 mg/dl (7-17); Creatinine Clearance Estimated 70 mL/min (50-200); Estimated Glomerular Filt Rate 61 ml/min (>60); GFR (African American) 73 ML/MIN (>60)
[2021-01-16 05:59] LABS: Anion Gap 9.5 mEq/L (5-15); Calcium 7.8 mg/dl (8.4-10.2); Carbon Dioxide 24 mmol/L (22.0-30.0); Glucose 124 mg/dl (74-100)
--- NOTE | 2021-01-16 07:41 | HMH.PHAVTE ---
[facility] Pharmacy VTE Monitoring - Patient Demographics Admission date: 01/15/21 Report Date: 01/16/21 Time: 07:41 Allergies/Adverse Reactions: Patient Allergies No Known Allergies Allergy (Verified 11/06/20 11:39) Height: 1.55 m Weight: 95.254 kg Patient Problems: Current Active Problems Hypothyroidism (acquired) (Acute) Angina pectoris, crescendo (Acute) Angina concurrent with and due to arteriosclerosis of coronary artery (Acute) Anemia (Acute) Status post total hip replacement, right (Acute) Obesity (BMI 30-39.9) (Chronic) Hyperlipidemia associated with type 2 diabetes mellitus (Chronic) CAD (coronary artery disease) (Chronic) HTN (hypertension) (Chronic) Diabetes (Chronic) Edema (Chronic) Essential hypertension (Chronic) - VTE Risk Labs: VTE Related Lab Results Hgb 8.5 g/dL (12.2-16.2) L 01/16/21 05:36 Hct 26.7 % (37.0-47.0) L 01/16/21 05:36 Plt Count 240 K/mm3 (142-424) 01/16/21 05:36 PT 11.5 seconds (10.1-12.5) 01/15/21 17:00 INR 0.97 (0.9-1.1) 01/15/21 17:00 APTT 21.5 seconds (22.8-30.6) L 01/15/21 17:00 BUN 17 mg/dl (7-17) 01/16/21 05:36 Creatinine 0.90 mg/dl (0.52-1.04) 01/16/21 05:36 Estimated Creat Clear 70 mL/min (50-200) 01/16/21 05:36 - Prophylaxis VTE Prophylaxis Ordered?: Yes Types of VTE Prophylaxis: TEDS Knee High, Pharmacological Location of Applied Device: Bilateral Lower Extremeties Pharmacologic Type: Enoxaparin
--- NOTE | 2021-01-16 07:42 | HMH.CNCARD ---
History of Present Illness Consult date: 01/16/21 Requesting physician: Fred Mathis Consult reason: chest pain Chief complaint: Chest pain History of present illness: 80-year-old female admitted to [facility] with unstable angina and worsening shortness of breath. Patient states that she has been having chest pain which radiates from the left arm to across the chest for the past 5 days. States shortness of breath does accompany the chest pain. Patient states she has been having palpitations especially with exertion. Swelling noted of the lower extremities. Patient states this is not new. Patient states the swelling in her lower legs have not resolved since her hip surgery in November 2020. Patient denies dizziness. Patient does have history of coronary artery disease. Patient did undergo left heart catheterization in October 2020 which revealed patent coronary arteries, nonflow limiting ischemic heart disease, slightly hyperdynamic ventricular consistent with diastolic dysfunction and mildly elevated LVEDP. Patient is currently on Plavix and aspirin daily. Patient does have history of congestive heart failure. History of hypertension and hyperlipidemia. Last echocardiogram was in June 2020, which revealed EF 55% with no regional wall abnormality. Mild aortic stenosis noted with mild MR and TR also noted. Patient states during her hip surgery in November, her blood count was low and had to be transfused 1 unit of blood. Patient denies any active bleeding. Patient is a known diabetic. States somewhat controlled. Initial EKG revealed sinus rhythm with PAC abnormal EKG with a heart rate of 99 bpm. Hematocrit 8.5 with hemoglobin 26.7. Iron level noted low at 8.3. BNP 1220. Chest x-ray was performed which revealed mild cardiomegaly with mild pulmonary congestion. [facility]:ANGIOGRAPHIC RESULTS (10/22) The left main artery Normal The left anterior descending artery Has a stent in the ostial proximal segment which is widely patent free of in-stent restenosis with excellent proximal distal transitioning. The mid LAD is tortuous and free of stenosis. The first diagonal artery is a small to moderate size vessel and has an ostial 50 to 60% stenosis The circumflex artery Is a codominant vessel with proximal tandem 10 to 20% stenoses followed by mid vessel stent which is widely patent free of in-stent restenosis with excellent proximal and distal transitioning. There is a 2 mm terminal obtuse marginal artery with a proximal eccentric 50% stenosis The right coronary artery Is a codominant vessel and has a proximal 20 to 30% smooth stenosis with mid vessel 10% stenoses The FERNANDEZ ventriculogram reveals Normal slightly hyperdynamic at 65 to 70% The left ventricular end-diastolic pressure 20 mmHg IMPRESSION Patent coronary arteries Nonflow-limiting ischemic heart disease Slightly hyperdynamic ventricle consistent with diastolic dysfunction Mildly elevated LVEDP Echo:Conclusion(06/23) 1. Mildly enlarged left atrium, normal left ventricular size, mild concentric left ventricular hypertrophy, visually estimated ejection fraction 55% with no regional wall motion abnormality, grade 1 diastolic dysfunction seen with tissue Doppler evidence of raise left atrial pressure. 2. Thickened and calcified aortic valve with mild aortic stenosis. 3. Mild mitral and tricuspid regurgitation. 4. No significant pericardial effusion noted. CXR:FINDINGS: (01/15/21) Heart is mildly enlarged and there is mild pulmonary vascular congestion. No definite focal infiltrate. No pleural effusion or pneumothorax. Old healed fracture the left mid rib noted. Some left axillary angela are present. IMPRESSION: Mild cardiomegaly with mild pulmonary vascular congestion. Discussed plan of care with Dr. Bhnadari. Orders received from Dr. Bhandari. Due to lower extremity edema and mild cardiomegaly with mild pulmonary vascular congestion, will start patient on Lasix 40 mg
--- NOTE | 2021-01-16 08:51 | HMH.ACPN2 ---
Internal Medicine - PN: Subj *Date: 01/16/21 *Time: 09:08 Interval history: Patient had a satisfactory night. She has had no further chest pain. She did have some sleep. She is n.p.o. for cardiology visit this morning. Chest x-ray revealed mild cardiomegaly with mild pulmonary vascular congestion. She did receive IV Lasix with excellent response. Laboratory data this morning reveal hemoglobin of 8.5 hematocrit of 26.7. Blood chemistries show normal electrolytes and renal function. Iron is low at 27. Troponin I's remain normal. Vitamin B12 is low normal at 322. TSH is low at 0.02. Exam Vital signs and Labs for Last 24 Hours: Temp Pulse Resp BP Pulse Ox 98.5 F 67 18 148/67 H 98 01/15/21 18:34 01/16/21 06:00 01/15/21 18:34 01/16/21 06:00 01/16/21 06:00 Laboratory Results - last 24 hr 01/15/21 16:13: WBC 4.9, RBC 3.41 L, Hgb 9.0 L, Hct 28.5 L, MCV 83.5, MCH 26.3 L, MCHC 31.5 L, RDW 15.2, Plt Count 281, MPV 7.6, Neut % (Auto) 72.6, Lymph % (Auto) 18.7, [place] % (Auto) 5.6, Eos % (Auto) 2.7, Baso % (Auto) 0.4, Neut # (Auto) 3.6, Lymph # (Auto) 0.9, [place] # (Auto) 0.3, Eos # (Auto) 0.1, Baso # (Auto) 0.0 01/15/21 16:13: Sodium 139, Potassium 3.8, Chloride 111 H, Carbon Dioxide 21 L, Anion Gap 10.8, BUN 21 H, Creatinine 0.90, Estimated Creat Clear 70, Estimated GFR 61, Est GFR ( Amer) 73, Glucose 236 H, Calcium 7.9 L, Troponin I < 0.01 01/15/21 16:13: NT-Pro-B Natriuret Pep 1220 H 01/15/21 17:00: APTT 21.5 L 01/15/21 17:00: PT 11.5, INR 0.97 01/15/21 17:00: SARS-CoV-2 (PCR) Not detected, Influenza A Untype (PCR) Not detected, Influenza Type B (PCR) Not detected 01/15/21 19:45: POC Glucose 207 H 01/15/21 20:00: Troponin I < 0.01 01/15/21 20:00: WBC 3.8 L, RBC 3.20 L, Hgb 8.4 L, Hct 26.7 L, MCV 83.6, MCH 26.1 L, MCHC 31.2 L, RDW 15.2, Plt Count 236, MPV 7.9, Neut % (Auto) 61.9, Lymph % (Auto) 29.1, [place] % (Auto) 5.7, Eos % (Auto) 2.9, Baso % (Auto) 0.3, Neut # (Auto) 2.4, Lymph # (Auto) 1.1, [place] # (Auto) 0.2, Eos # (Auto) 0.1, Baso # (Auto) 0.0 01/15/21 20:00: Iron 27 L, TIBC 325, Iron Saturation 8.17570 L, Vitamin B12 322, TSH 0.02 L 01/15/21 20:00: Blood Type O Positive, Antibody Screen Negative 01/15/21 22:26: Troponin I < 0.01 01/16/21 05:36: WBC 4.0 L, RBC 3.28 L, Hgb 8.5 L, Hct 26.7 L, MCV 81.4, MCH 26.0 L, MCHC 32.0, RDW 15.4, Plt Count 240, MPV 7.6, Neut % (Auto) 59.1, Lymph % (Auto) 27.1, [place] % (Auto) 7.5, Eos % (Auto) 5.4, Baso % (Auto) 0.9, Neut # (Auto) 2.4, Lymph # (Auto) 1.1, [place] # (Auto) 0.3, Eos # (Auto) 0.2, Baso # (Auto) 0.0 01/16/21 05:36: Sodium 140, Potassium 3.5, Chloride 110 H, Carbon Dioxide 24, Anion Gap 9.5, BUN 17, Creatinine 0.90, Estimated Creat Clear 70, Estimated GFR 61, Est GFR ( Amer) 73, Glucose 124 H D, Calcium 7.8 L I & O for Last 24 hours: Intake & Output 01/13/21 01/14/21 01/15/21 01/16/21 11:59 11:59 11:59 11:59 Intake Total 370 / 370 Output Total 2550 / 2550 Balance -2180 / -2180 Weight 209 lb 15.986 oz - Constitutional no acute distress - *Routine Respiratory Exam Present: CTA bilaterally (Anteriorly and posteriorly) - *Routine Cardiovascular Exam Present: RRR - *Routine Abdominal Exam Present: soft, normoactive bowel sounds. Absent: tenderness - *Routine Extremities Exam Present: edema. Absent: calf tenderness Comments: Right leg is larger than the left. - *Routine Neurological Exam Present: alert, oriented X3 Assessment and Plan (1) Angina concurrent with and due to arteriosclerosis of coronary artery Status: Acute Category: Medical Code(s): I25.119 - Atherosclerotic heart disease of [place] coronary artery with unspecified angina pectoris (2) Anemia Status: Acute Qualifiers: Anemia type: iron deficiency Category: Medical Code(s): D64.9 - Anemia, unspecified (3) Status post total hip replacement, right Status: Acute Category: Surgical Code(s): Z96.641 - Presence of right artificial hip joint (
--- NOTE | 2021-01-16 09:35 | CA_ITS ---
APPROVED REPORT EXAM: Comprehensive 2D, Doppler, and color-flow Echocardiogram Stringed Instrument Assembler: Romana Nava RVT Ht: 5 ft 1 in Wt: 209lbs BSA: 1.92 BP: 148/67 mmHg Indications: CP,SOA,MILD ,CAD,CHF,ANEMIA,PALPS,EDEMA,HTN,HLD,DM 2D Dimensions LVOT 1.96 cm (M/F) 1.5-2.5 LA Volume 34.10 mL LA Volume Index 17.76 mL/m2 (M/F) 16-34 M-Mode Dimensions RVDd 2.46 cm (0.9-2.6) LA Diam 3.39 cm (1.9-4.0) LVDd 3.74 cm (3.5-5.7) Ao Diam 3.54 cm (2.0-3.7) LVDs 2.42 cm (3.5-5.7) IVSd 1.51 cm (0.6-1.1) PWd 0.57 cm (0.6-1.1) EF (Teich) 65.40% FS 35.30% EDV (Teich) 59.60 mL ESV (Teich) 20.60 mL LV Diastology E Decel Time 307.00 (160-240 msec) E/A Ratio 0.7 MED E' 4.10 (< 7 cm/sec) E'/MED E' Ratio 25.15 (>14) LAT E' 6.50 (<10 cm/sec) E/LAT E' Ratio 15.86 (>14) Aortic Valve LVOT Max 110.00 (70-110 cm/s) LVOT VTI 32.72 cm AoV Peak Troy. 280.00 (50-130 cm/s) AO Peak GR. 31.40 mmHg AO Mean GR. 16.60 (<5 mmHg) AO VTI 65.47 (18-25 cm) ANANYA (VTI) 1.51 (2.5-4.5 cm2) Mitral Valve MV E Max Troy. 103.00 (40-130 cm/s) MV A Velocity 143.00 (40-130 cm/s) E/A Ratio 0.72 MV Decel. Time 307.00 (160-240 ms) MV PHT 90.00 ms Pulmonary Valve PV Peak Velocity 95.00 (50-150 cm/s) Tricuspid Valve TR P. Velocity 168.00 cm/s RAP Estimate 10.00 mmHg RVSP 21.30 mmHg Left Ventricle Left atrium is mildly enlarged, left ventricle is normal size, mild concentric left ventricular hypertrophy, visually estimated ejection fraction 55% with no regional wall motion abnormality, grade 1 diastolic dysfunction seen with tissue Doppler evidence of raise left atrial pressure. Right Ventricle Right atrium and right ventricle are normal size and contractility. Aortic Valve Aortic valve is thickened and calcified, mean gradient across valve is 16 mmHg, valve area is 1.6 cm??? represents mild aortic stenosis, there is no significant aortic insufficiency. Mitral Valve Mitral valve has mitral annular calcification, leaflets are minimally thickened, there is no mitral stenosis, there is mild mitral regurgitation. Tricuspid Valve Tricuspid valve is grossly normal, there is mild tricuspid regurgitation, tricuspid regurgitation jet velocity is inadequate for calculation of the right ventricular systolic pressure. Pulmonic Valve Pulmonic valve is poorly visualized. Great Vessels Aortic root is normal size. Inferior vena cava is normal size with normal inspiratory collapse. Pericardium No significant pericardial effusion noted. Conclusion 1. Mildly enlarged left atrium, normal left ventricular size, mild concentric left ventricular hypertrophy, visually estimated ejection fraction 55% with no regional wall motion abnormality, grade 1 diastolic dysfunction seen with tissue Doppler evidence of raise left atrial pressure. 2. Thickened and calcified aortic valve with mild aortic stenosis, valve area is 1.6 cm???, there is no significant aortic insufficiency. 3. Mild mitral and tricuspid regurgitation. 4. No significant pericardial effusion noted, inferior vena cava is normal size with normal inspiratory collapse. Electronically signed by : Glynn Alatorre, 01/16/2021 10:42:17
[2021-01-16 09:45] LABS: Reticulocyte % (Auto) 1.8 % (0.9-3.2)
[2021-01-16 10:56] LABS: POC Glucose,Bedside 135 (70-110)
--- NOTE | 2021-01-16 11:21 | HMH.PHAINT ---
home medication list clarified using list from PCP Dr Blair Lora's office and from outpatient pharmacy
--- NOTE | 2021-01-16 12:57 | PC.NURSE ---
VICKY MORENO APRN FROM CARDIOLOGY MADE AWARE OF PT TACHYCARDIA IN THE 130'S FOLLOWED BY BRADYCARDIA.
--- NOTE | 2021-01-16 18:50 | PC.NURSE ---
SHE IS AOX4, ABLE TO MAKE NEEDS KNOWN TO STAFF, SHE WAS TACHYCARDIC THIS MORNING BUT HAS IMPROVED FOLLOWING ADMINISTRATION OF VERAPAMIL THIS AFTERNOON. SHE HAS NOT C/O CHEST PAIN THIS SHIFT. DOES NOT REQUIRE O2 SUPPORT. PUREWICK IN PLACE FOR COMFORT. SHE HAS DIURESED WELL. NO NEEDS VOICED.
[2021-01-16 20:35] LABS: POC Glucose,Bedside 228 (70-110)
[2021-01-16 20:35] LABS: POC Glucose,Bedside 170 (70-110)
[2021-01-16 20:35] LABS: POC Glucose,Bedside 135 (70-110)
[2021-01-16 23:17] LABS: POC Glucose,Bedside 223 (70-110)
[2021-01-17] VITALS (7 sets, daily range): BP systolic 84–135; BP diastolic 47–68; PULSE 60–94; RESP 16–24; TEMP 36.6–36.8; O2SAT 97–99; BMI 37.4
--- NOTE | 2021-01-17 03:43 | PC.NURSE ---
No acute changes this shift. Pt slept well all shift. A/O x4. Pt complained of back pain and admin tylenol X1 this shift. Patient's O2 started to decline around high 80's while sleeping, administered O2 at 2L NC. pt tolerated well. Pt also had one nausea spell, admin zofran per MAR with relief. Purewick in place. Pt can make needs known to staff, VSS, no concerns at this time.
[2021-01-17 05:15] LABS: POC Glucose,Bedside 292 (70-110)
--- NOTE | 2021-01-17 08:07 | HMH.ACPN2 ---
Internal Medicine - PN: Subj *Date: 01/17/21 *Time: 08:07 Interval history: Patient denies any chest pain today. She states her heart rate does still tachycardic. She slept a little bit better last night and did eat some of her breakfast this morning. Exam Vital signs and Labs for Last 24 Hours: Temp Pulse Resp BP Pulse Ox 98.0 F 72 16 114/59 L 99 01/17/21 03:59 01/17/21 04:00 01/17/21 03:59 01/17/21 03:59 01/17/21 03:59 Laboratory Results - last 24 hr 01/16/21 05:12: POC Glucose 135 H 01/16/21 05:36: Retic Count (auto) 1.8 01/16/21 10:47: POC Glucose 135 H 01/16/21 17:22: POC Glucose 228 H 01/16/21 20:24: POC Glucose 170 H 01/16/21 22:59: POC Glucose 223 H 01/17/21 05:07: POC Glucose 292 H I & O for Last 24 hours: Intake & Output 01/14/21 01/15/21 01/16/21 01/17/21 11:59 11:59 11:59 11:59 Intake Total 370 / 370 1078 / 1078 Output Total 2550 / 2550 3600 / 3600 Balance -2180 / -2180 -2522 / -2522 Weight 209 lb 15.986 oz 198 lb 2 oz Radiology Reports for the Last 24 Hours: Echo Conclusion 1. Mildly enlarged left atrium, normal left ventricular size, mild concentric left ventricular hypertrophy, visually estimated ejection fraction 55% with no regional wall motion abnormality, grade 1 diastolic dysfunction seen with tissue Doppler evidence of raise left atrial pressure. 2. Thickened and calcified aortic valve with mild aortic stenosis, valve area is 1.6 cm???, there is no significant aortic insufficiency. 3. Mild mitral and tricuspid regurgitation. 4. No significant pericardial effusion noted, inferior vena cava is normal size with normal inspiratory collapse. - Constitutional no acute distress - *Routine Respiratory Exam Present: CTA bilaterally - *Routine Cardiovascular Exam Present: irregular rhythm - *Routine Abdominal Exam Present: soft, normoactive bowel sounds. Absent: tenderness - *Routine Extremities Exam Absent: cyanosis, clubbing, edema - *Routine Skin Exam Present: warm. Absent: rash - *Routine Neurological Exam Present: alert, oriented X3 Assessment and Plan (1) Angina concurrent with and due to arteriosclerosis of coronary artery Status: Acute Category: Medical Code(s): I25.119 - Atherosclerotic heart disease of [place] coronary artery with unspecified angina pectoris (2) Anemia Status: Acute Qualifiers: Anemia type: iron deficiency Category: Medical Code(s): D64.9 - Anemia, unspecified (3) Status post total hip replacement, right Status: Acute Category: Surgical Code(s): Z96.641 - Presence of right artificial hip joint (4) CAD (coronary artery disease) Status: Chronic Qualifiers: Coronary Disease-Associated Artery/Lesion type: [place] artery [place] vs. transplanted heart: [place] heart Associated angina: with other forms of angina Qualified Code(s): I25.118 - Atherosclerotic heart disease of [place] coronary artery with other forms of angina pectoris Category: Medical Code(s): I25.10 - Atherosclerotic heart disease of [place] coronary artery without angina pectoris (5) HTN (hypertension) Status: Chronic Qualifiers: Hypertension type: essential hypertension Qualified Code(s): I10 - Essential (primary) hypertension Category: Medical Code(s): I10 - Essential (primary) hypertension (6) Hyperlipidemia associated with type 2 diabetes mellitus Status: Chronic Category: Medical Code(s): E11.69 - Type 2 diabetes mellitus with other specified complication; E78.5 - Hyperlipidemia, unspecified (7) Hypothyroidism (acquired) Status: Acute Category: Medical Code(s): E03.9 - Hypothyroidism, unspecified (8) Diabetes Status: Chronic Qualifiers: Diabetes mellitus type: type 2 Diabetes mellitus 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
--- NOTE | 2021-01-17 08:12 | HMH.PNCARD ---
Subjective Date: 01/17/21 Time: 08:00 Principal diagnosis: chest pain Interval history: 80-year-old female admitted to [facility] with unstable angina and worsening shortness of breath yesterday. Patient denies chest pain, tightness or pressure. Patient states her shortness of breath has improved since admission. Lower extremity edema has improved. Patient states her legs do not hurt as much since having the diuretics. Patient is down 2 to 3 pounds since receiving diuretics yesterday. Patient states she has been having palpitations especially with exertion. Patient does have history of coronary artery disease. Patient did undergo left heart catheterization in October 2020 which revealed patent coronary arteries, nonflow limiting ischemic heart disease, slightly hyperdynamic ventricular consistent with diastolic dysfunction and mildly elevated LVEDP. Patient is currently on Plavix and aspirin daily. Patient does have history of congestive heart failure. History of hypertension and hyperlipidemia. Echocardiogram revealed EF 55% with no regional wall abnormality, thickened and calcified aortic valve with mild aortic stenosis but there is no significant aortic insufficiency. Mild MR and TR noted. Patient was started on iron 325 mg p.o. twice daily due to low iron level. Reticulocyte count was within normal. Patient denies any active bleeding. Due to patient's anemia and low iron would like to have surgery consult today for possible colonoscopy. Patient does have history of breast cancer and thyroid cancer. court monitor reveals sinus rhythm with PACs. Patient's heart rate ranges from 70 bpm to 118 bpm. Patient is hypotensive this a.m. Patient is currently on verapamil and carvedilol. Medications may need to be adjusted. BMP pending at this time. Discussed plan of care with Dr. Bhandari. Orders received from Dr. Bhandari. Consult surgery due to anemia and iron deficiency for possible colonoscopy. Patient does have history of breast cancer and thyroid cancer. Please continue to monitor patient status. Stop Lasix due to appropriate diuresing achieved. Please notify cardiology of any changes in patient status. Echo:Conclusion 1. Mildly enlarged left atrium, normal left ventricular size, mild concentric left ventricular hypertrophy, visually estimated ejection fraction 55% with no regional wall motion abnormality, grade 1 diastolic dysfunction seen with tissue Doppler evidence of raise left atrial pressure. 2. Thickened and calcified aortic valve with mild aortic stenosis, valve area is 1.6 cm???, there is no significant aortic insufficiency. 3. Mild mitral and tricuspid regurgitation. 4. No significant pericardial effusion noted, inferior vena cava is normal size with normal inspiratory collapse. Thank you for allowing cardiology to participate in the care of this patient. Exam Vital signs and Labs for Last 24 Hours: Temp Pulse Resp BP Pulse Ox 98.0 F 72 16 114/59 L 99 01/17/21 03:59 01/17/21 04:00 01/17/21 03:59 01/17/21 03:59 01/17/21 03:59 Laboratory Results - last 24 hr 01/16/21 05:12: POC Glucose 135 H 01/16/21 05:36: Retic Count (auto) 1.8 01/16/21 10:47: POC Glucose 135 H 01/16/21 17:22: POC Glucose 228 H 01/16/21 20:24: POC Glucose 170 H 01/16/21 22:59: POC Glucose 223 H 01/17/21 05:07: POC Glucose 292 H I & O for Last 24 hours: Intake & Output 01/14/21 01/15/21 01/16/21 01/17/21 23:59 23:59 23:59 23:59 Intake Total 360 / 360 970 / 970 118 / 118 Output Total 1050 / 1600 4700 / 4700 400 / 400 Balance -690 / -1240 -3730 / -3730 -282 / -282 Weight 210 lb 209 lb 15.986 oz 198 lb 2 oz - Constitutional no acute distress, obese, cooperative - *Routine HEENT Exam Head: Present: normocephalic ENT: Present: mucous membranes moist - *Routine Neck Exam Present: supple, full ROM, normal carotid upstroke. Absent: JVD, carotid bruit, lymphadenopathy - *Routine Respiratory Ex
[2021-01-17 09:25] LABS: MANUAL DIFFERENTIAL MANUAL DIFFERENTIAL (MANUAL DIFF)
[2021-01-17 09:36] LABS: Chloride 104 mmol/L (98-107); Potassium 3.7 mmoL/L (3.5-5.1); Sodium 141 mmol/L (136-145)
[2021-01-17 09:39] LABS: Blood Urea Nitrogen 25 mg/dl (7-17); Creatinine Clearance Estimated 44 mL/min (50-200); Estimated Glomerular Filt Rate 34 ml/min (>60); GFR (African American) 41 ML/MIN (>60)
[2021-01-17 09:40] LABS: Anion Gap 10.7 mEq/L (5-15); Carbon Dioxide 30 mmol/L (22.0-30.0); Glucose 226 mg/dl (74-100)
[2021-01-17 09:56] LABS: Basophils % 0.6 % (0.1-2.0); Eosinophils # 0.2 K/mm3 (0.0-0.4); Eosinophils % 2.7 % (0.1-12.0); Hematocrit 28.4 % (37.0-47.0); Hemoglobin 9.1 g/dL (12.2-16.2); Lymphocytes # 1.2 K/mm3 (0.7-4.5); Lymphocytes % 20.7 % (10-50); Mean Corpuscular Hemoglobin 25.9 pg (27.0-31.2); Mean Corpuscular Volume 81.2 fl (81-99); Mean Platelet Volume 7.7 fl (7.4-10.4); Monocytes # 0.5 K/mm3 (0.1-1.0); Monocytes % 8.5 % (1.7-9.3); Neutrophils % 67.5 % (37.0-80.0); Platelet Count 282 K/mm3 (142-424); Red Cell Distribution Width 15.3 % (11.5-17.5); White Blood Count 5.9 K/mm3 (4.8-10.8)
[2021-01-17 10:06] LABS: Eosinophils % 3 % (0-3); Lymphocytes % 21 % (10-50); Monocytes % 10 % (2-9); Neutrophils % 66 % (42-76); Nucleated Red Blood Cells 1; Total Cells Counted 100
[2021-01-17 10:07] LABS: Microcytosis 1+; Platelet Estimate Normal
--- NOTE | 2021-01-17 11:21 | HMH.GSCON ---
*Admission Date: 01/15/21 *Reason for consult:: Anemia *History of present illness: This is a 80-year-old female seen in consultation from the cardiology service for evaluation regarding anemia. Please see truncated HPI from cardiology evaluation forwarded below. She states that she was diagnosed with anemia prior to an orthopedic intervention earlier this year. She did undergo blood transfusion at the time of her orthopedic intervention. Per her report she came into the hospital before the surgery (November) around 11 and dropped to about 7 before surgery even happened . Since discharge status post surgery she reports being low but slowly improving . Forwarded from cardiology evaluation: 80-year-old female admitted to [facility] with unstable angina and worsening shortness of breath yesterday. Patient denies chest pain, tightness or pressure. Patient states her shortness of breath has improved since admission. Lower extremity edema has improved. Patient states her legs do not hurt as much since having the diuretics. Patient is down 2 to 3 pounds since receiving diuretics yesterday. Patient states she has been having palpitations especially with exertion. Patient does have history of coronary artery disease. Patient did undergo left heart catheterization in October 2020 which revealed patent coronary arteries, nonflow limiting ischemic heart disease, slightly hyperdynamic ventricular consistent with diastolic dysfunction and mildly elevated LVEDP. Patient is currently on Plavix and aspirin daily. Patient does have history of congestive heart failure. History of hypertension and hyperlipidemia. Echocardiogram revealed EF 55% with no regional wall abnormality, thickened and calcified aortic valve with mild aortic stenosis but there is no significant aortic insufficiency. Mild MR and TR noted. Patient was started on iron 325 mg p.o. twice daily due to low iron level. Reticulocyte count was within normal. Patient denies any active bleeding. Due to patient's anemia and low iron would like to have surgery consult today for possible colonoscopy. Patient does have history of breast cancer and thyroid cancer. [place] court [place] law clerk reveals sinus rhythm with PACs. Patient's heart rate ranges from 70 bpm to 118 bpm. Patient is hypotensive this a.m. Patient is currently on verapamil and carvedilol. Medications may need to be adjusted. BMP pending at this time. Discussed plan of care with Dr. Bhandari. Orders received from Dr. Bhandari. Consult surgery due to anemia and iron deficiency for possible colonoscopy. Patient does have history of breast cancer and thyroid cancer. Please continue to monitor patient status. Stop Lasix due to appropriate diuresing achieved. Please notify cardiology of any changes in patient status. Review of Systems - Constitutional Denies chills - ENT Denies difficulty swallowing - *Cardiovascular Reports leg swelling - *Respiratory Denies cough - *Gastrointestinal Denies vomiting blood, Denies bright, red blood in stools, Denies black, tarry stools, Denies nausea - *Genitourinary Denies blood in urine - *Neurologic Denies behavioral changes, Denies dizziness, Denies headache(s) - Psychiatric Denies anxiety - Hematologic/Lymphatic Reports easy bruising - Allergic/Immunologic Denies wheezing [facility] History Medical History: Reports:: Cancer, Congestive Heart Failure, Coronary Artery Disease (History of 2 stents), Diabetes Mellitus Type 2 (Use of insulin), Hyperlipidemia, Hypertension, Peripheral Artery Disease, Peripheral Vascular Disease Denies:: Internal Pacemaker, MRSA, Seizures *Have you ever received a pneumonia vaccine?: Yes *Have you received a flu vaccine this season?: Yes Other Medical History: Reports: Hypothyroidism, Thyroid Disease Laterality Cases: Left: Mastectomy Other Surgeries: Yes: Angioplasty (2 stents), Bariatric Surgery, Cardiac Catheterization, Cholecystectomy, Coronary Stent. No: P
[2021-01-17 13:00] LABS: POC Glucose,Bedside 244 (70-110)
--- NOTE | 2021-01-17 16:15 | PC.NURSE ---
PT IS SITTING UP IN THE CHAIR WITH FAMILY IN THE ROOM. NO COMPLAINTS OF DISCOMFORT. PT IS REALLY WANTING TO GO HOME. TOLERATED TAKING A SHOWER THIS SHIFT WITH VERY MINIMAL ASSISTANCE. EATING AND DRINKING WELL. LUNG SOUNDS CLEAR. ABDOMEN SOFT/NON TENDER WITH ACTIVE BOWEL SOUNDS. 2+ PITTING EDEMA NOTED TO BLE. VSS. PT HAS BEEN AMBULATING TO THE BATHROOM WITH WALKER. STOOL SPECIMEN COLLECTED AND SENT TO LAB. CONSULTED WITH PT AND HE STATED THAT HE DOES FEEL THAT PT NEEDS AN EGD AND COLONOSCOPY BUT HIM AND THE PT BOTH THOUGHT IT WOULD BE BETTER FOR HER TO FOLLOW UP WITH HIM 1 WEEK AFTER DISCHARGE AND DO THE EGD AND COLONOSCOPY OUTPATIENT. PT WILL ALSO HAVE A 1 WEEK FOLLOW UP WITH CARDIOLOGY AFTER DISCHARGE. WILL CONTINUE TO MONITOR.
[2021-01-17 17:22] LABS: POC Glucose,Bedside 127 (70-110)
[2021-01-17 20:15] LABS: POC Glucose,Bedside 270 (70-110)
[2021-01-17 20:46] LABS: Occult Blood,Stool Positive (Negative)
[2021-01-18] VITALS (7 sets, daily range): BP systolic 96–149; BP diastolic 54–57; PULSE 68–90; RESP 16–18; TEMP 36.7; O2SAT 94–97; BMI 37.5
--- NOTE | 2021-01-18 03:50 | PC.NURSE ---
Pt is A/O x4. No acute changes this shift. Lungs are CTA, abd soft, non tender. Pt denies any pain, N/V/D. IV patent. Pt is on room air with stats high 90's. Purewick in place draining clear, yellow urine. Call light within reach, pt is able to make needs known to staff. No concerns at this time.
--- NOTE | 2021-01-18 06:52 | HMH.GSPN ---
Subjective Narrative: The patient states that she is likely going home today . Progress Note: A&P (1) Angina concurrent with and due to arteriosclerosis of coronary artery Status: Acute (2) Anemia Status: Acute (3) Status post total hip replacement, right Status: Acute (4) CAD (coronary artery disease) Status: Chronic (5) HTN (hypertension) Status: Chronic (6) Hyperlipidemia associated with type 2 diabetes mellitus Status: Chronic (7) Hypothyroidism (acquired) Status: Acute (8) Diabetes Status: Chronic (9) Edema Status: Chronic (10) Essential hypertension Status: Chronic (11) Occult blood positive stool Status: Acute Assessment and Plan for All Diagnoses:: The patient's anemia could be multifactorial; however, gastrointestinal blood loss is the most likely source. Although not required during this hospitalization, esophagogastroduodenoscopy/colonoscopy in the near future is warranted. She will follow-up as an outpatient. Exam Vital signs and Labs for Last 24 Hours: Temp Pulse Resp BP Pulse Ox 98.0 F 68 17 96/54 L 96 01/18/21 04:00 01/18/21 04:00 01/18/21 04:00 01/18/21 04:00 01/18/21 04:00 Laboratory Results - last 24 hr 01/17/21 09:15: WBC 5.9 D, RBC 3.50 L, Hgb 9.1 L, Hct 28.4 L, MCV 81.2, MCH 25.9 L, MCHC 32.0, RDW 15.3, Plt Count 282, MPV 7.7, Neut % (Auto) 67.5, Lymph % (Auto) 20.7, [place] % (Auto) 8.5, Eos % (Auto) 2.7, Baso % (Auto) 0.6, Neut # (Auto) 4.0, Lymph # (Auto) 1.2, [place] # (Auto) 0.5, Eos # (Auto) 0.2, Baso # (Auto) 0.0, Total Counted 100, Neutrophils % (Manual) 66, Lymphocytes % (Manual) 21, Monocytes % (Manual) 10 H, Eosinophils % (Manual) 3, Nucleated RBCs 1, Platelet Estimate Normal, Microcytosis 1+ 01/17/21 09:15: Sodium 141, Potassium 3.7, Chloride 104, Carbon Dioxide 30 D, Anion Gap 10.7, BUN 25 H D, Creatinine 1.50 H D, Estimated Creat Clear 44, Estimated GFR 34 L, Est GFR ( Amer) 41 L D, Glucose 226 H, Calcium 8.0 L 01/17/21 11:37: POC Glucose 244 H 01/17/21 15:42: Stool Occult Blood Positive A 01/17/21 16:12: POC Glucose 127 H 01/17/21 20:02: POC Glucose 270 H I & O for Last 24 hours: Intake & Output 01/15/21 01/16/21 01/17/21 01/18/21 11:59 11:59 11:59 11:59 Intake Total 370 / 370 1798 / 1798 960 / 960 Output Total 2550 / 2550 4200 / 4200 Balance -2180 / -2180 -2402 / -2402 960 / 960 Weight 209 lb 15.986 oz 198 lb 6.656 oz 199 lb - Constitutional no acute distress - *Routine Respiratory Exam Absent: respiratory distress - *Routine Cardiovascular Exam Present: RRR
--- NOTE | 2021-01-18 08:25 | HMH.ACPN2 ---
Internal Medicine - PN: Subj *Date: 01/18/21 *Time: 08:25 Interval history: Patient denies any pain today. She states she still feels weak. She was able to rest well and has been eating normally. She was seen by Dr. Peters and her Hemoccult was positive. She will need an EGD and colonoscopy on an outpatient basis. Exam Vital signs and Labs for Last 24 Hours: Temp Pulse Resp BP Pulse Ox 98.1 F 83 16 102/57 L 97 01/18/21 07:51 01/18/21 07:51 01/18/21 07:51 01/18/21 07:51 01/18/21 07:51 Laboratory Results - last 24 hr 01/17/21 09:15: WBC 5.9 D, RBC 3.50 L, Hgb 9.1 L, Hct 28.4 L, MCV 81.2, MCH 25.9 L, MCHC 32.0, RDW 15.3, Plt Count 282, MPV 7.7, Neut % (Auto) 67.5, Lymph % (Auto) 20.7, [place] % (Auto) 8.5, Eos % (Auto) 2.7, Baso % (Auto) 0.6, Neut # (Auto) 4.0, Lymph # (Auto) 1.2, [place] # (Auto) 0.5, Eos # (Auto) 0.2, Baso # (Auto) 0.0, Total Counted 100, Neutrophils % (Manual) 66, Lymphocytes % (Manual) 21, Monocytes % (Manual) 10 H, Eosinophils % (Manual) 3, Nucleated RBCs 1, Platelet Estimate Normal, Microcytosis 1+ 01/17/21 09:15: Sodium 141, Potassium 3.7, Chloride 104, Carbon Dioxide 30 D, Anion Gap 10.7, BUN 25 H D, Creatinine 1.50 H D, Estimated Creat Clear 44, Estimated GFR 34 L, Est GFR ( Amer) 41 L D, Glucose 226 H, Calcium 8.0 L 01/17/21 11:37: POC Glucose 244 H 01/17/21 15:42: Stool Occult Blood Positive A 01/17/21 16:12: POC Glucose 127 H 01/17/21 20:02: POC Glucose 270 H I & O for Last 24 hours: Intake & Output 06/14/01/16/21 01/17/21 01/18/21 11:59 11:59 11:59 11:59 Intake Total 370 / 370 1798 / 1798 1200 / 1200 Output Total 2550 / 2550 4200 / 4200 Balance -2180 / -2180 -2402 / -2402 1200 / 1200 Weight 209 lb 15.986 oz 198 lb 6.656 oz 199 lb - Constitutional no acute distress - *Routine Respiratory Exam Present: CTA bilaterally - *Routine Cardiovascular Exam Present: murmur, irregular rhythm - *Routine Abdominal Exam Present: soft, normoactive bowel sounds. Absent: tenderness - *Routine Extremities Exam Absent: cyanosis, clubbing, edema - *Routine Skin Exam Present: warm. Absent: rash - *Routine Neurological Exam Present: alert, oriented X3 Assessment and Plan (1) Angina concurrent with and due to arteriosclerosis of coronary artery Status: Acute Category: Medical Code(s): I25.119 - Atherosclerotic heart disease of [place] coronary artery with unspecified angina pectoris (2) Anemia Status: Acute Qualifiers: Anemia type: iron deficiency Category: Medical Code(s): D64.9 - Anemia, unspecified (3) Status post total hip replacement, right Status: Acute Category: Surgical Code(s): Z96.641 - Presence of right artificial hip joint (4) CAD (coronary artery disease) Status: Chronic Qualifiers: Coronary Disease-Associated Artery/Lesion type: [place] artery [place] vs. transplanted heart: [place] heart Associated angina: with other forms of angina Qualified Code(s): I25.118 - Atherosclerotic heart disease of [place] coronary artery with other forms of angina pectoris Category: Medical Code(s): I25.10 - Atherosclerotic heart disease of [place] coronary artery without angina pectoris (5) HTN (hypertension) Status: Chronic Qualifiers: Hypertension type: essential hypertension Qualified Code(s): I10 - Essential (primary) hypertension Category: Medical Code(s): I10 - Essential (primary) hypertension (6) Hyperlipidemia associated with type 2 diabetes mellitus Status: Chronic Category: Medical Code(s): E11.69 - Type 2 diabetes mellitus with other specified complication; E78.5 - Hyperlipidemia, unspecified (7) Hypothyroidism (acquired) Status: Acute Category: Medical Code(s): E03.9 - Hypothyroidism, unspecified (8) Diabetes Status: Chronic Qualifiers: Diabetes mellitus type: type 2 Diabetes mellitus vp transportation insulin use: with vp transportation use Diabetes mellitus complication status: withou
[2021-01-18 10:30] LABS: Basophils % 0.7 % (0.1-2.0); Eosinophils # 0.1 K/mm3 (0.0-0.4); Eosinophils % 2.5 % (0.1-12.0); Hematocrit 29.3 % (37.0-47.0); Hemoglobin 8.7 g/dL (12.2-16.2); Lymphocytes # 1.1 K/mm3 (0.7-4.5); Lymphocytes % 20.9 % (10-50); Mean Corpuscular HGB Conc 29.7 g/dL (31.8-35.4); Mean Corpuscular Hemoglobin 26.1 pg (27.0-31.2); Mean Corpuscular Volume 87.7 fl (81-99); Mean Platelet Volume 7.4 fl (7.4-10.4); Monocytes # 0.4 K/mm3 (0.1-1.0); Monocytes % 6.4 % (1.7-9.3); Neutrophils # 3.8 K/mm3 (1.8-7.8); Neutrophils % 69.5 % (37.0-80.0); Platelet Count 264 K/mm3 (142-424); Red Blood Count 3.34 M/mm3 (4.20-5.40); Red Cell Distribution Width 15.3 % (11.5-17.5); White Blood Count 5.4 K/mm3 (4.8-10.8)
[2021-01-18 10:45] LABS: Chloride 105 mmol/L (98-107); Sodium 138 mmol/L (136-145)
[2021-01-18 10:46] LABS: Potassium 4.2 mmoL/L (3.5-5.1)
[2021-01-18 10:48] LABS: Blood Urea Nitrogen 39 mg/dl (7-17)
[2021-01-18 10:49] LABS: Anion Gap 12.2 mEq/L (5-15); Calcium 8.1 mg/dl (8.4-10.2); Carbon Dioxide 25 mmol/L (22.0-30.0); Creatinine Clearance Estimated 44 mL/min (50-200); Estimated Glomerular Filt Rate 34 ml/min (>60); GFR (African American) 41 ML/MIN (>60); Glucose 356 mg/dl (74-100)
[2021-01-18 16:39] LABS: POC Glucose,Bedside 279 (70-110)
[2021-01-18 16:39] LABS: POC Glucose,Bedside 198 (70-110)
--- NOTE | 2021-01-19 15:34 | HMH.DCSUM ---
General - General Admission date:: 01/15/21 Discharge date: 01/18/21 HPI HPI: This 80-year-old white female has known coronary artery disease, diabetes, hyperlipidemia. She is a patient of Dr. Blair Lora in [facility]. She presented in the emergency room at [facility] today with complaints of chest pain which has been going on for about 5 days. She has had some shortness of breath. When the pain is acute she notices her heart racing. She has edema. The patient sees Dr. Bhandari for her cardiology care. She has had 2 coronary artery stents. She has a strong family history for coronary artery disease. As stated she is diabetic and takes insulin. She has had a gastric bypass Significant in recent history is right hip replacement on November 10. Her blood count dropped down to 7.2 hemoglobin. She received 1 unit of blood. She was hospitalized at [facility]. Hospital Course Hospital Course: The patient's BNP was elevated at 1220, her hemoglobin decreased down to 8.4. She had a chest x-ray showing mild cardiomegaly with pulmonary vascular congestion. Oxygen was ordered and she was started on diuretics. She was typed and crossed for 2 units of back packed red blood cells but this was placed on hold. Her weight was measured daily. She was seen in consultation by cardiology. Her serial troponins had been negative. She had a history of CHF and was therefore started on Lasix 40 mg IV every 8 hours. Her iron level was low and she was started on iron replacement. An echo was ordered as well. Her echo showed an EF of 55% with grade 1 diastolic dysfunction. There was a thickened and calcified aortic valve with mild aortic stenosis. Cardiology did not want to proceed with a heart catheterization in light of her anemia. She had good weight loss from diuresis. Her shortness of breath improved and her chest pain resolved. Cardiology did feel she should have a surgery consultation due to her anemia and heme positive stool. Dr. Peters saw the patient and felt she would need both an EGD and a colonoscopy on an outpatient basis. He felt she could be discharged home and follow-up with him in his office. By 01/18/2021, the patient was feeling much better. She was anxious to go home. She will need to follow-up with cardiology and Dr. Peters on an outpatient basis. Her levothyroxine dose was decreased to 100 mcg a day and she will be started on iron twice a day as well as potassium twice a day at home. Objective Vital signs: Temp Pulse Resp BP Pulse Ox 98.0 F 70 18 149/56 H 96 01/18/21 11:05 01/18/21 12:00 01/18/21 11:05 01/18/21 11:05 01/18/21 11:05 Narrative: - Constitutional no acute distress - *Routine HEENT Exam Head: Present: normocephalic Eye: Present: PERRL ENT: Present: mucous membranes moist - *Routine Neck Exam Present: JVD (Noted) - Routine Chest/Breast/Axilla Exam Chest wall: Absent: tenderness - *Routine Respiratory Exam Present: decreased breath sounds, rales - *Routine Cardiovascular Exam Present: RRR, S4 - *Routine Abdominal Exam Present: soft, normoactive bowel sounds. Absent: tenderness - *Routine Rectal Exam Rectal:: deferred - *Routine Genitalia Exam Genitalia:: deferred - *Routine Extremities Exam Present: edema (3+ pitting edema bilaterally) - *Routine Skin Exam Present: pallor (Definite) - *Routine Neurological Exam Present: alert, oriented X3 - Routine Psychiatric Exam Present: normal affect, normal thought process Results Labs on day of discharge: Labs from last 24 hours 01/18/21 01/18/21 12:05 05:15 POC Glucose 279 H 198 H DS: Diagnosis - Discharge Diagnosis (1) Angina concurrent with and due to arteriosclerosis of coronary artery Status: Acute (2) Anemia Status: Acute (3) Status post total hip replacement, right Status: Acute (4) CAD (coronary artery disease) Status: C
== END 2021-01-18 12:30 | disposition home or self-care (01) ==
LOC: ER 17:06 → 2ND 17:41
PROVIDERS: Surgery; Urology; Admitting Provider Family Medicine; Emergency Provider Emergency Medicine; PCP Family Medicine; Visit Provider Family Medicine
DX: I25.110 Atherosclerotic heart disease of native coronary artery with unstable angina pectoris (principal); I11.0 Hypertensive heart disease with heart failure; E78.5 Hyperlipidemia, unspecified; Z79.01 Long term (current) use of anticoagulants; Z95.5 Presence of coronary angioplasty implant and graft; Z82.49 Family history of ischemic heart disease and other diseases of the circulatory system; Z79.899 Other long term (current) drug therapy; Z79.4 Long term (current) use of insulin; I50.9 Heart failure, unspecified; D50.9 Iron deficiency anemia, unspecified
CPT/HCPCS: 36415; 71046; 80048; 82272; 82607; 82962; 83540; 83550; 83880; 84443; 84484; 85007; 85014; 85018; 85025; 85044; 85048; 85049; 85610; 85730; 86850; 93005; 93306; 96374; 96375; 99283; G0328; G0378; J2405; U0003

== ENCOUNTER → 2021-01-24 10:53 | Outpatient (CLI) | payer MEDICARE, SELFPAY ==
[2021-01-24 11:41] LABS: Hematocrit 28.4 % (37.0-47.0)
== END ==
PROVIDERS: Surgery; PCP Family Medicine; Visit Provider Nurse Practitioner Family
DX: D64.9 Anemia, unspecified (principal); I50.9 Heart failure, unspecified; R00.2 Palpitations; R19.5 Other fecal abnormalities; Z96.641 Presence of right artificial hip joint; I20.9 Angina pectoris, unspecified; I11.0 Hypertensive heart disease with heart failure
CPT/HCPCS: 36415; 85014; 85018; 93270

== ENCOUNTER → 2021-02-07 09:01 | Outpatient (CLI) | payer MEDICARE, SELFPAY | PROVIDERS: Visit Provider Surgery | DX: Z01.812 Encounter for preprocedural laboratory examination (principal); Z20.822 Contact with and (suspected) exposure to COVID-19; R19.5 Other fecal abnormalities; D50.9 Iron deficiency anemia, unspecified | CPT/HCPCS: U0003 ==

== ENCOUNTER 2021-02-08 06:24 | Day surgery (SDC) | payer MEDICARE, SELFPAY ==
[2021-01-25 15:47] VITALS: BMI 37.6
[2021-02-08 06:32] VITALS: BP 142/54; PULSE 91; RESP 18; TEMP 36.6; O2SAT 99
[2021-02-08 06:54] LABS: POC Glucose,Bedside 143 (70-110)
--- NOTE | 2021-02-08 07:21 | P.PN_ITS ---
[facility] Anesthesia Checklist - Structural Data Admitted From: Home Planned Operative Procedure/s: egd/colonoscopy Consent for Planned Operative Procedure(s) Verified: Yes - Airway Assessment C-Spine Mobility Assessed: Yes TMJ Mobility Assessed: Yes Dentition: Good Dentition - Neurological Assessment Level of Consciousness: Awake, Alert, Appropriate - Anesthesia Plan Anesthesia Risk discussed: Yes Anesthesia Plan: Verified ASA Class: III Anesthesia Type: [facility] History I have reviewed the patient's past medical history: Yes Medical History: Reports:: Cancer (breast, thyroid), Congestive Heart Failure, Coronary Artery Disease, Diabetes Mellitus Type 2, Hyperlipidemia, Hypertension, Peripheral Artery Disease, Peripheral Vascular Disease Denies:: Diabetes Mellitus Type 1, Internal Pacemaker, MRSA, Seizures *Have you ever received a pneumonia vaccine?: Yes *Have you received a flu vaccine this season?: Yes Other Medical History: Reports: Hypothyroidism, Thyroid Disease Anesthesia experience/problems:: none Laterality Cases: Left: Mastectomy Other Surgeries: Yes: Angioplasty (2 stents), Bariatric Surgery, Cardiac Catheterization, Cholecystectomy, Coronary Stent. No: Pacemaker Amputation: No Fractures: Yes (ankle) - *Social History Smoking Status: Never smoker Alcohol Intake: never Substance Use Type: denies use *Occupational Status:: retired Housing: house Household Members: spouse *Travel in the last 8 weeks: None Family Hx:: Cancer, Diabetes, Heart Attack, Hyperlipidemia, Hypertension, Thyroid Disorder
[2021-02-08 07:24] VITALS: O2SAT 97
[2021-02-08 08:20] VITALS: BP 90/46; PULSE 87; RESP 18; TEMP 36.3; O2SAT 100
--- NOTE | 2021-02-08 08:21 | HMH.SCOPE ---
- Procedure: Date: 02/08/21 Patient Date of :: 1940 Procedure Performed:: Esophagogastroduodenoscopy with biopsy Colonoscopy with biopsy Indications:: Anemia Heme positive stool Performing Provider:: Aubrey Peters MD Referring Provider:: . Sedation:: Monitored anesthesia care Procedure:: After informed consent was obtained the patient was taken to the endoscopy suite. Sedation ensued after the patient was transferred to the left lateral decubitus position. Pulse, blood pressure, and oxygen saturation were monitored throughout the procedure. The endoscope was advanced beyond the duodenal bulb. Retroflexion within the gastric lumen was accomplished. The gastroscope was carefully removed. Digital rectal exam revealed no significant abnormality. The colonoscope was placed in position. The entire colon was evaluated. The colonoscope was carefully removed and the patient was transferred to recovery in stable condition. Please see findings and specimens below for detail. Findings:: Mild inflammation at gastroesophageal junction Partial mild/early Schatzki ring Tubular stomach (particularly proximal stomach) consistent with history of sleeve gastrectomy Patchy distal gastritis Bowel preparation poor Significant sigmoid tortuosity Severe spasticity and lack of relaxation limiting visualization Scattered diverticulosis Firm lobulated sessile polyp/mass in cecum Specimens:: Antral biopsy Multiple biopsies of lobulated sessile polyp/mass in cecum Recommendations:: Follow-up pathology Complications:: No immediate with the exception of poor bowel preparation for colonoscopy Estimated blood obtained (mL): 1
[2021-02-08 08:30] VITALS: BP 115/58; PULSE 80; RESP 16; TEMP 36.3; O2SAT 99
[2021-02-08 08:40] VITALS: BP 130/70; PULSE 78; RESP 16; TEMP 36.3; O2SAT 100
[2021-02-08 08:50] VITALS: BP 110/53; PULSE 70; RESP 16; TEMP 36.6; O2SAT 100
== END 2021-02-08 08:55 | disposition home or self-care (01) ==
LOC: OUTP 06:25
PROVIDERS: PCP Family Medicine; Visit Provider Surgery
PROC: 0DJ08ZZ Inspection of Upper Intestinal Tract, Via Natural or Artificial Opening Endoscopic (ICD-10-PCS; CPT 43235; principal; 2021-02-08 07:30)
DX: D12.0 Benign neoplasm of cecum (principal); K29.70 Gastritis, unspecified, without bleeding; K22.2 Esophageal obstruction; K57.90 Diverticulosis of intestine, part unspecified, without perforation or abscess without bleeding; D50.9 Iron deficiency anemia, unspecified; I11.0 Hypertensive heart disease with heart failure; I50.9 Heart failure, unspecified; E11.9 Type 2 diabetes mellitus without complications; I25.10 Atherosclerotic heart disease of native coronary artery without angina pectoris; E03.9 Hypothyroidism, unspecified; Z79.899 Other long term (current) drug therapy; Z79.4 Long term (current) use of insulin; Z79.02 Long term (current) use of antithrombotics/antiplatelets; Z98.84 Bariatric surgery status
CPT/HCPCS: 43239; 45380; 82962; 88305

== ENCOUNTER → 2021-02-28 15:39 | Outpatient (CLI) | payer MEDICARE, SELFPAY ==
[2021-02-28 16:41] LABS: Basophils % 0.8 % (0.1-2.0); Eosinophils # 0.2 K/mm3 (0.0-0.4); Eosinophils % 3.4 % (0.1-12.0); Hematocrit 37.5 % (37.0-47.0); Hemoglobin 11.5 g/dL (12.2-16.2); Lymphocytes # 1.1 K/mm3 (0.7-4.5); Lymphocytes % 22.9 % (10-50); Mean Corpuscular HGB Conc 30.8 g/dL (31.8-35.4); Mean Corpuscular Hemoglobin 27.2 pg (27.0-31.2); Mean Corpuscular Volume 88.5 fl (81-99); Mean Platelet Volume 7.8 fl (7.4-10.4); Monocytes # 0.3 K/mm3 (0.1-1.0); Monocytes % 5.5 % (1.7-9.3); Neutrophils # 3.3 K/mm3 (1.8-7.8); Neutrophils % 67.4 % (37.0-80.0); Platelet Count 228 K/mm3 (142-424); Red Blood Count 4.24 M/mm3 (4.20-5.40); Red Cell Distribution Width 17.9 % (11.5-17.5); White Blood Count 4.8 K/mm3 (4.8-10.8)
[2021-02-28 17:10] LABS: Alanine Aminotransferase 16 U/L (12-78); Albumin Level 3.3 g/dl (3.5-5.0); Albumin/Globulin Ratio 1.1 (1.1-1.8); Alkaline Phosphatase 138 U/L (38-126); Anion Gap 14.6 mEq/L (5-15); Aspartate Amino Transferase 42 U/L (14-36); Bilirubin,Total 0.7 mg/dl (0.2-1.3); Blood Urea Nitrogen 14 mg/dl (7-17); Carbon Dioxide 20 mmol/L (22.0-30.0); Chloride 111 mmol/L (98-107); Estimated Glomerular Filt Rate 81 ml/min (>60); GFR (African American) 98 ML/MIN (>60); Glucose 234 mg/dl (74-100); Potassium 4.6 mmoL/L (3.5-5.1); Sodium 141 mmol/L (136-145); Total Protein,Serum 6.3 g/dl (6.3-8.2)
== END ==
PROVIDERS: Visit Provider Surgery
DX: D36.9 Benign neoplasm, unspecified site (principal); E78.5 Hyperlipidemia, unspecified
CPT/HCPCS: 36415; 80053; 85025; U0003

== ENCOUNTER 2021-03-02 06:12 | Inpatient (IN) | payer MEDICARE, SELFPAY ==
[2021-02-27 13:01] VITALS: BMI 39.2
[2021-03-02] VITALS (23 sets, daily range): BP systolic 101–167; BP diastolic 46–79; PULSE 53–83; RESP 12–20; TEMP 36.3–43; O2SAT 92–100; BMI 45.6
[2021-03-02 06:56] LABS: POC Glucose,Bedside 147 (70-110)
--- NOTE | 2021-03-02 07:08 | HMH.GSHP ---
HPI HPI: This is a 80-year-old female who has recently been evaluated for anemia. Colonoscopy revealed a somewhat friable lesion in the cecum that was not amenable to colonoscopic removal. Multiple biopsies revealed tubulovillous adenoma. HPI from recent office evaluation is forwarded below. Forwarded from office visit: The patient returns status post EGD/colonoscopy. Findings and specimens are forwarded below. Findings:: Mild inflammation at gastroesophageal junction Partial mild/early Schatzki ring Tubular stomach (particularly proximal stomach) consistent with history of sleeve gastrectomy Patchy distal gastritis Bowel preparation poor Significant sigmoid tortuosity Severe spasticity and lack of relaxation limiting visualization Scattered diverticulosis Firm lobulated sessile polyp/mass in cecum Specimens:: Antral biopsy Multiple biopsies of lobulated sessile polyp/mass in cecum Note: Pathology revealed fragments of tubulovillous adenoma. [facility] History Medical History: Reports:: Cancer (L breast, thyroid), Congestive Heart Failure, Coronary Artery Disease, Diabetes Mellitus Type 2, Hyperlipidemia, Hypertension, Peripheral Artery Disease, Peripheral Vascular Disease Denies:: Diabetes Mellitus Type 1, Internal Pacemaker, MRSA, Seizures *Have you ever received a pneumonia vaccine?: Yes *Have you received a flu vaccine this season?: Yes Other Medical History: Reports: Hypothyroidism, Thyroid Disease. Denies: Blood Transfusion Reaction Laterality Cases: Left: Mastectomy, Right: Total Hip Replacement Other Surgeries: Yes: Angioplasty (2 stents), Bariatric Surgery, Cardiac Catheterization, Cholecystectomy, Colonoscopy, Coronary Stent, EGD. No: Pacemaker Amputation: No Fractures: Yes (ankle) - *Social History Last grade of school completed: Advanced degree Smoking Status: Never smoker Alcohol Intake: never Substance Use Type: denies use *Occupational Status:: retired Housing: house Household Members: spouse *Travel in the last 8 weeks: None Family Hx:: Cancer, Diabetes, Heart Attack, Hyperlipidemia, Hypertension, Thyroid Disorder Review of Systems - Constitutional Denies weight loss - Eyes Denies change in vision - ENT Denies difficulty swallowing - *Cardiovascular Denies chest pain - *Respiratory Denies cough - *Gastrointestinal Denies abdominal pain - *Genitourinary Denies blood in urine - *Musculoskeletal Denies deformity - Integumentary/Breasts Denies new lesions - *Neurologic Denies confusion, Denies dizziness - Psychiatric Denies anxiety - Endocrine Denies cold intolerance - Hematologic/Lymphatic Denies easy bleeding - Allergic/Immunologic Denies GI upset with certain foods Meds Home Medications Medication Instructions Recorded Confirmed Type Insulin Glargine,Hum.rec.anlog 14 units SQ BID 01/18/19 02/13/21 History [Gerardo Rios] Insulin NPH Hum/Reg Insulin Hm 10 unit SQ TIDWM 01/18/19 02/13/21 History [Novolin 70-30 100 Unit/ml Vial] Fluticasone Propionate 1 spray NS BID PRN 06/13/20 02/13/21 History Atorvastatin Calcium [Lipitor 80mg 80 mg PO DAILY 01/15/21 02/13/21 History Tablet*] Verapamil HCl [Verapamil ER] 240 mg PO DAILY 01/15/21 02/13/21 History Clopidogrel Bisulfate [Clopidogrel 75 mg PO DAILY 01/16/21 02/13/21 History 75mg Tab] carvediloL [Carvedilol 6.25mg Tab] 6.25 mg PO BID 01/16/21 02/13/21 History lisinopriL [Lisinopril] 40 mg PO DAILY 01/16/21 02/13/21 History Furosemide [Furosemide 20mg Tab*] 20 mg PO BID #60 tab 01/18/21 02/13/21 Rx Ferrous Sulfate [Ferrous Sulfate 325 mg PO BID 01/25/21 02/13/21 History 325mg Tablet] Levothyroxine Sodium [Synthroid 100 mcg PO DAILYDM 01/25/21 02/13/21 History 100mcg (0.1mg) tablet] Potassium Chloride [Klor-Con 10mEq 10 meq PO BID 01/25/21 02/13/21 History tab] Allergies Allergy/AdvReac Type Severity Reaction Status Date / Time No Known Allergies Allergy Verif
--- NOTE | 2021-03-02 08:13 | P.PN_ITS ---
[facility] Anesthesia Checklist - Structural Data Admitted From: Home Planned Operative Procedure/s: colectomy Consent for Planned Operative Procedure(s) Verified: Yes - Additional verifications Anesthesia Reactions: No Hx Blood Transfusions: Yes Blood Transfusion Reaction: No - Airway Assessment C-Spine Mobility Assessed: Yes TMJ Mobility Assessed: Yes Dentition: Poor Dentition - Neurological Assessment Level of Consciousness: Awake, Alert, Appropriate - Anesthesia Plan Anesthesia Risk discussed: Yes Anesthesia Plan: Verified ASA Class: III Anesthesia Type: General [facility] History I have reviewed the patient's past medical history: Yes Medical History: Reports:: Cancer (L breast, thyroid), Congestive Heart Failure, Coronary Artery Disease, Diabetes Mellitus Type 2, Hyperlipidemia, Hypertension, Peripheral Artery Disease, Peripheral Vascular Disease Denies:: Diabetes Mellitus Type 1, Internal Pacemaker, MRSA, Seizures *Have you ever received a pneumonia vaccine?: Yes *Have you received a flu vaccine this season?: Yes Other Medical History: Reports: Hypothyroidism, Thyroid Disease. Denies: Blood Transfusion Reaction Anesthesia experience/problems:: none Laterality Cases: Left: Mastectomy, Right: Total Hip Replacement Other Surgeries: Yes: Angioplasty (2 stents), Bariatric Surgery, Cardiac Catheterization, Cholecystectomy, Colonoscopy, Coronary Stent, EGD. No: Pacemaker Amputation: No Fractures: Yes (ankle) - *Social History Last grade of school completed: Advanced degree Smoking Status: Never smoker Alcohol Intake: never Substance Use Type: denies use *Occupational Status:: retired Housing: house Household Members: spouse *Travel in the last 8 weeks: None Family Hx:: Cancer, Diabetes, Heart Attack, Hyperlipidemia, Hypertension, Thyroid Disorder
--- NOTE | 2021-03-02 10:19 | HMH.OPNOTE ---
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 Renee Muhammad RN ADMISSIONS:: Massimo [place] Anesthesia: GETA Estimated blood loss (mL): 300 Operative findings:: Right colectomy completed with ileocolic anastomosis. Moderate sanguinous ooze noted throughout subcutaneous tissue and also along all lines of dissection. Operative note:: After informed consent was obtained the patient was taken to the operating room and placed in the supine position. General anesthesia was induced and her abdomen was prepped and draped in a sterile fashion. A midline laparotomy incision was made. Sanguinous ooze was noted throughout the deep subcutaneous tissue. Electrocautery was utilized to achieve hemostasis. The fascia was carefully entered. No sign of injury noted. A periumbilical hernia was included within the fascial opening. The right colon was carefully elevated. No significant lateral attachments noted. The entire right colon was freely mobile. Significance adhesions noted throughout the distal small bowel. Careful sharp dissection was utilized to free the distal small bowel adhesions. The distal ileum was transected with a linear stapling device. The proximal transverse colon was carefully elevated. The omentum was dissected with the Enseal device. A linear stapler was then used to transect the proximal transverse colon. The intervening mesentery was taken down with a combination of the Enseal device and clamp/cut/tie with Vicryl and Nurolon ligation. The distal ileum and transverse colon were brought into [id number] apposition. The linear stapler was utilized to create the anastomosis. The common otomy was then closed with a TA stapler. Imbrication was completed along the crotch and staple line using interrupted 3-0 Nurolon. The mesenteric defect was reapproximated with running Vicryl suture. Sanguinous ooze along all lines of dissection was noted. Electrocautery was utilized to achieve hemostasis. Thorough irrigation and suction followed by inspection revealed no sign of ongoing hemorrhage. The fascia was reapproximated with #2 Novafil and skin was closed with angela. Dressings were applied and the patient was transferred to recovery in stable condition after extubation. Condition: stable Disposition: PACU Specimens:: Right colon Complications:: No immediate
--- NOTE | 2021-03-02 10:19 | HMH.ANESI ---
[facility] Anesthesia Record Part I Intake, IV Amount: 3,000 Estimated blood loss (mL): 300 Urine output (mL): 250 Blood Pressure: 147/76 SaO2: 97 Pulse Rate: 69 Respiratory Rate: 12 Temperature: 97.8 F Patient is:: Awake, Stable Stable to PACU at:: 10:15
[2021-03-02 10:51] LABS: POC Glucose,Bedside 193 (70-110)
[2021-03-02 11:04] LABS: Hematocrit 31.9 % (37.0-47.0); Hemoglobin 10.3 g/dL (12.2-16.2)
--- NOTE | 2021-03-02 11:12 | ECG_ITS ---
APPROVED REPORT Exam: Resting ECG HR:63 bpm ECG Measurements Heart Rate 63 AXES OR 154 P 4 QRSd 84 QRS -50 QT 486 T 78 QTc 497 Conclusion Sinus rhythm with premature atrial complexes Left anterior fascicular block Late r wave progression Abnormal ECG Electronically signed by : Olivier Currie, 03/04/2021 21:03:21
[2021-03-02 11:29] LABS: Prothrombin Time 12.7 seconds (10.1-12.5)
[2021-03-02 11:31] LABS: INR 1.08 (0.9-1.1)
--- NOTE | 2021-03-02 13:11 | PC.NURSE ---
report given to huseyin jaimes. Pt drowsy but wakes easily. oriented x3. HRR, lungs CTA, BS absent. Midline abd dressing C/D/I. pt reports gas pain denies need for PRN medication at this time. VSS, SCUDs in place bilaterally. pedal pulses palpable, trace edema to BLE. #20 ga angiocath to right Forearm. Site wnl.
[2021-03-02 15:10] LABS: Microscopic,Cath URINE MICROSCOPIC (MICROSCOPIC)
[2021-03-02 15:13] LABS: Appearance,Urine/Cath SL CLOUDY (Clear); Bilirubin,Cath Negative (Negative); Blood, Urine/Cath Negative (Negative); Color,Urine/Cath YELLOW (Yellow); Glucose,Urine/Cath (UA) Negative (Negative); Ketones,Urine/Cath Negative (Negative); Leukocyte Esterase,Cath TRACE (Negative); Nitrate,Cath POSITIVE (Negative); Protein,Urine/Cath Negative (Negative); Urobilinogen,Cath 0.2 EU/dl (0.2)
[2021-03-02 15:29] LABS: Bacteria,Urine/Cath 2+ /lpf
--- NOTE | 2021-03-02 17:40 | PC.NURSE ---
PT IS RESTING IN BED. TURNED AND REPOSITIONED NEEDED. ABDOMINAL DRESSING NOTED TO MIDLINE INCISION C/D/I. POST OP VSS. LUNG SOUNDS CLEAR. ABDOMEN SOFT/TENDER WITH HYPOACTIVE BOWEL SOUNDS. TRACE OF EDEMA NOTED TO BLE. SKUDS NOTED TO BLE. PT HAS USED 2 MG OF THE PRESCHOOL TEACHER AIDE PUMP THIS SHIFT. PT STATES HER PAIN FEELS LIKE GAS PAINS. REPOSITIONED TO THE LT SIDE TO ASSIST WITH DISCOMFORT. WILL CONTINUE TO MONITOR.
--- NOTE | 2021-03-02 18:18 | HMH.PHAVTE ---
[facility] Pharmacy VTE Monitoring - Patient Demographics Admission date: 03/02/21 Report Date: 03/02/21 Time: 18:18 Allergies/Adverse Reactions: Patient Allergies No Known Allergies Allergy (Verified 02/27/21 13:07) Height: 1.55 m Weight: 109.429 kg Patient Problems: Current Active Problems Tubulovillous adenoma of colon (Acute) - VTE Risk Labs: VTE Related Lab Results Hgb 10.3 g/dL (12.2-16.2) L 03/02/21 10:57 Hct 31.9 % (37.0-47.0) L 03/02/21 10:57 PT 12.7 seconds (10.1-12.5) H 03/02/21 10:57 INR 1.08 (0.9-1.1) 03/02/21 10:57 Was VTE Risk Assessment Performed: Yes VTE Score: 5 VTE Risk Level: Low Risk - Prophylaxis Types of VTE Prophylaxis: IPCS Knee High, Pharmacological Location of Applied Device: Bilateral Lower Extremeties Pharmacologic Type: Enoxaparin (LOVENOX AND ICDS)
[2021-03-02 18:19] LABS: Hemoglobin 10.3 g/dL (12.2-16.2)
[2021-03-03] VITALS (11 sets, daily range): BP systolic 110–145; BP diastolic 58–76; PULSE 50–87; RESP 16–20; TEMP 36.7–37.1; O2SAT 93–96
[2021-03-03 00:26] LABS: POC Glucose,Bedside 266 (70-110)
[2021-03-03 06:23] LABS: POC Glucose,Bedside 179 (70-110)
[2021-03-03 08:21] LABS: Blood Urea Nitrogen 16 mg/dl (7-17); Calcium 7.4 mg/dl (8.4-10.2); Carbon Dioxide 23 mmol/L (22.0-30.0); Chloride 110 mmol/L (98-107); Creatinine Clearance Estimated 35 mL/min (50-200); Estimated Glomerular Filt Rate 61 ml/min (>60); GFR (African American) 73 ML/MIN (>60); Glucose 169 mg/dl (74-100); Sodium 138 mmol/L (136-145)
[2021-03-03 08:28] LABS: Basophils % 0.2 % (0.1-2.0); Hematocrit 27.6 % (37.0-47.0); Lymphocytes # 0.9 K/mm3 (0.7-4.5); Lymphocytes % 7.5 % (10-50); MANUAL DIFFERENTIAL MANUAL DIFFERENTIAL (MANUAL DIFF); Mean Corpuscular HGB Conc 31.9 g/dL (31.8-35.4); Mean Corpuscular Hemoglobin 27.6 pg (27.0-31.2); Mean Corpuscular Volume 86.3 fl (81-99); Mean Platelet Volume 8.5 fl (7.4-10.4); Monocytes # 0.4 K/mm3 (0.1-1.0); Monocytes % 3.6 % (1.7-9.3); Neutrophils # 10.1 K/mm3 (1.8-7.8); Neutrophils % 88.6 % (37.0-80.0); Platelet Count 189 K/mm3 (142-424); Red Cell Distribution Width 17.7 % (11.5-17.5); White Blood Count 11.4 K/mm3 (4.8-10.8)
[2021-03-03 08:59] LABS: Anisocytosis 1+; Hypochromasia 1+; Lymphocytes % 9 % (10-50); Monocytes % 2 % (2-9); Neutrophils % 89 % (42-76); Platelet Estimate Normal; Total Cells Counted 100
[2021-03-03 09:04] LABS: Hemoglobin 8.8 g/dL (12.2-16.2)
[2021-03-03 09:10] LABS: CEA 5.6 ng/mL (0.0-4.7)
[2021-03-03 12:51] LABS: POC Glucose,Bedside 146 (70-110)
--- NOTE | 2021-03-03 14:54 | P.PN_ITS ---
Subjective Narrative: Patient has no complaints. No significant pain. Did have an episode of transient nausea earlier today but no vomiting. Feels well. Progress Note: A&P (1) Tubulovillous adenoma of colon Status: Acute Assessment and Plan for All Diagnoses:: SMITH [place]. Follow hemoglobin/hematocrit. Out of bed to chair. Exam Vital signs and Labs for Last 24 Hours: Temp Pulse Resp BP Pulse Ox 98.4 F 83 17 110/60 95 03/03/21 10:44 03/03/21 10:44 03/03/21 10:44 03/03/21 10:44 03/03/21 10:44 Laboratory Results - last 24 hr 03/02/21 07:45: Urine Color Yellow, Urine Appearance Sl cloudy, Urine pH 6.0, Ur Specific [place] 1.020, Urine Protein Negative, Urine Glucose (UA) Negative, Urine Ketones Negative, Urine Blood Negative, Urine Nitrate Positive, Urine Bili [place] Negative, Urine Urobilinogen 0.2, Ur Leukocyte Esterase Trace, Urine RBC None, Urine WBC None, Ur Squamous Epith Cells None, Urine Bacteria 2+ A 03/02/21 10:57: Carcinoembryonic Ag 5.6 H 03/02/21 18:07: Hgb 10.3 L, Hct 32.0 L 03/02/21 21:53: POC Glucose 266 H 03/03/21 06:15: POC Glucose 179 H 03/03/21 07:40: WBC 11.4 H D, RBC 3.20 L, Hgb 8.8 L D, Hct 27.6 L, MCV 86.3, MCH 27.6, MCHC 31.9, RDW 17.7 H, Plt Count 189, MPV 8.5, Neut % (Auto) 88.6 H, Lymph % (Auto) 7.5 L, [place] % (Auto) 3.6, Eos % (Auto) 0.0 L, Baso % (Auto) 0.2, Neut # (Auto) 10.1 H, Lymph # (Auto) 0.9, [place] # (Auto) 0.4, Eos # (Auto) 0.0, Baso # (Auto) 0.0, Total Counted 100, Neutrophils % (Manual) 89 H, Lymphocytes % (Manual) 9 L, Monocytes % (Manual) 2, Platelet Estimate Normal, Hypochromasia 1+, Anisocytosis 1+ 03/03/21 07:40: Sodium 138, Potassium 4.0, Chloride 110 H, Carbon Dioxide 23, Anion Gap 9.0, BUN 16, Creatinine 0.90 D, Estimated Creat Clear 35, Estimated GFR 61, Est GFR ( Amer) 73 D, Glucose 169 H, Calcium 7.4 L 03/03/21 12:43: POC Glucose 146 H I & O for Last 24 hours: Intake & Output 03/01/21 03/02/21 03/03/21 03/04/21 11:59 11:59 11:59 11:59 Intake Total 3000 / 3000 0 / 0 0 / 0 Output Total 150 / 150 Balance 2850 / 2850 0 / 0 0 / 0 Weight 241 lb 4 oz Microbiology Reports for the Last 24 Hours: Microbiology 03/02/21 07:45 Urine,Catheterized Urine Culture - Preliminary Gram Negative Rods - *Routine Abdominal Exam Present: soft
[2021-03-03 17:22] LABS: POC Glucose,Bedside 173 (70-110)
--- NOTE | 2021-03-03 19:29 | PC.NURSE ---
Pt is alert and oriented x 4 and able to make needs known. RR even and unlabored. Remains on RA. Have educated and encouraged use of incentive spirometer. Pt up to chair. BS very sluggish and hypoactive/faint. Heart mumur noted. Lungs cta. Did remove wang cath, this afternoon. Meds per oct and fsbs as ordered. Primary care provider consulted and plans to round in am. CB in reach. VSS.
[2021-03-03 20:23] LABS: POC Glucose,Bedside 165 (70-110)
--- NOTE | 2021-03-03 20:28 | PC.NURSE ---
3 mg morphine used this shift per PAPER GLUING OPERATOR.
[2021-03-04] VITALS (12 sets, daily range): BP systolic 118–140; BP diastolic 60–78; PULSE 65–92; RESP 17–20; TEMP 36.6–37.2; O2SAT 95–97; BMI 45.0
--- NOTE | 2021-03-04 06:27 | PC.NURSE ---
Patient voiced no complaints this shift has shown no s/s of acute distress noted, call light within reach, bed at lowest level for safety, will continue to monitor.
[2021-03-04 06:30] LABS: POC Glucose,Bedside 127 (70-110)
[2021-03-04 07:11] LABS: Basophils % 0.4 % (0.1-2.0); Eosinophils # 0.1 K/mm3 (0.0-0.4); Eosinophils % 1.7 % (0.1-12.0); Lymphocytes # 1.3 K/mm3 (0.7-4.5); Lymphocytes % 20.2 % (10-50); Mean Corpuscular HGB Conc 32.3 g/dL (31.8-35.4); Mean Corpuscular Hemoglobin 28.1 pg (27.0-31.2); Mean Corpuscular Volume 87.2 fl (81-99); Mean Platelet Volume 8.3 fl (7.4-10.4); Monocytes # 0.4 K/mm3 (0.1-1.0); Monocytes % 5.3 % (1.7-9.3); Neutrophils # 4.8 K/mm3 (1.8-7.8); Neutrophils % 72.5 % (37.0-80.0); Platelet Count 167 K/mm3 (142-424); Red Blood Count 2.93 M/mm3 (4.20-5.40); Red Cell Distribution Width 17.4 % (11.5-17.5); White Blood Count 6.7 K/mm3 (4.8-10.8)
[2021-03-04 07:12] LABS: Hematocrit 25.6 % (37.0-47.0); Hemoglobin 8.2 g/dL (12.2-16.2)
[2021-03-04 07:16] LABS: Chloride 110 mmol/L (98-107); Potassium 3.7 mmoL/L (3.5-5.1); Sodium 138 mmol/L (136-145)
[2021-03-04 07:19] LABS: Blood Urea Nitrogen 15 mg/dl (7-17); Calcium 7.4 mg/dl (8.4-10.2); Carbon Dioxide 26 mmol/L (22.0-30.0); Creatinine Clearance Estimated 35 mL/min (50-200); Estimated Glomerular Filt Rate 54 ml/min (>60); GFR (African American) 65 ML/MIN (>60); Glucose 123 mg/dl (74-100)
[2021-03-04 07:33] LABS: Anion Gap 5.7 mEq/L (5-15)
--- NOTE | 2021-03-04 09:24 | HMH.GSPN ---
Subjective Narrative: Patient doing quite well without any significant complaints. No nausea. Pain controlled. She has had a couple of large liquid bowel movements. Hemoglobin 8.2. Progress Note: A&P (1) Tubulovillous adenoma of colon Status: Acute Assessment and Plan for All Diagnoses:: Clear liquid diet Exam Vital signs and Labs for Last 24 Hours: Temp Pulse Resp BP Pulse Ox 98.9 F 85 20 135/71 96 03/04/21 08:00 03/04/21 08:00 03/04/21 08:00 03/04/21 08:00 03/04/21 08:00 Laboratory Results - last 24 hr 03/03/21 12:43: POC Glucose 146 H 03/03/21 17:15: POC Glucose 173 H 03/03/21 20:13: POC Glucose 165 H 03/04/21 06:16: WBC 6.7 D, RBC 2.93 L, Hgb 8.2 L, Hct 25.6 L, MCV 87.2, MCH 28.1, MCHC 32.3, RDW 17.4, Plt Count 167, MPV 8.3, Neut % (Auto) 72.5, Lymph % (Auto) 20.2, [place] % (Auto) 5.3, Eos % (Auto) 1.7, Baso % (Auto) 0.4, Neut # (Auto) 4.8, Lymph # (Auto) 1.3, [place] # (Auto) 0.4, Eos # (Auto) 0.1, Baso # (Auto) 0.0 03/04/21 06:16: Sodium 138, Potassium 3.7, Chloride 110 H, Carbon Dioxide 26, Anion Gap 5.7, BUN 15, Creatinine 1.00, Estimated Creat Clear 35, Estimated GFR 54 L, Est GFR ( Amer) 65, Glucose 123 H D, Calcium 7.4 L 03/04/21 06:23: POC Glucose 127 H I & O for Last 24 hours: Intake & Output 03/01/21 03/02/21 03/03/21 03/04/21 11:59 11:59 11:59 11:59 Intake Total 3000 / 3000 0 / 0 1800 / 1800 Output Total 150 / 150 Balance 2850 / 2850 0 / 0 1800 / 1800 Weight 241 lb 4 oz 238 lb 6 oz Microbiology Reports for the Last 24 Hours: Microbiology 03/02/21 07:45 Urine,Catheterized Urine Culture - Final Salmonella enterica ssp arizon - *Routine Abdominal Exam Present: soft Comments: Dressing intact and perfectly dry.
[2021-03-04 12:48] LABS: POC Glucose,Bedside 167 (70-110)
--- NOTE | 2021-03-04 18:42 | PC.NURSE ---
Pt has done well this shift. Pt has c/o multi[ple green, loose stools this shift. Pts IV did infiltrate this shift, d/t being a hard stick and a limb alert-new PIV access is still in process. 5mL's cleared on CUTTING TOOL SHARPENER pump this shift. No other acute changes or complaints at this time, will continue to monitor.
[2021-03-05] VITALS (13 sets, daily range): BP systolic 129–168; BP diastolic 62–89; PULSE 64–96; RESP 16–20; TEMP 36.6–37.1; O2SAT 92–98; BMI 42.3
[2021-03-05 01:48] LABS: POC Glucose,Bedside 177 (70-110)
[2021-03-05 05:57] LABS: POC Glucose,Bedside 145 (70-110)
--- NOTE | 2021-03-05 07:03 | PC.NURSE ---
No s/s of acute distress noted this shift. Bed at lowest level for safety, call light within reach; will continue to monitor.
[2021-03-05 07:07] LABS: Basophils % 0.7 % (0.1-2.0); Eosinophils # 0.3 K/mm3 (0.0-0.4); Eosinophils % 5.5 % (0.1-12.0); Hematocrit 27.3 % (37.0-47.0); Lymphocytes # 0.8 K/mm3 (0.7-4.5); Lymphocytes % 18.2 % (10-50); Mean Corpuscular HGB Conc 32.9 g/dL (31.8-35.4); Mean Corpuscular Hemoglobin 27.8 pg (27.0-31.2); Mean Corpuscular Volume 84.6 fl (81-99); Mean Platelet Volume 8.2 fl (7.4-10.4); Monocytes # 0.2 K/mm3 (0.1-1.0); Monocytes % 4.9 % (1.7-9.3); Neutrophils # 3.2 K/mm3 (1.8-7.8); Neutrophils % 70.8 % (37.0-80.0); Platelet Count 175 K/mm3 (142-424); Red Blood Count 3.23 M/mm3 (4.20-5.40); Red Cell Distribution Width 17.4 % (11.5-17.5); White Blood Count 4.5 K/mm3 (4.8-10.8)
--- NOTE | 2021-03-05 07:42 | HMH.ANESII ---
[facility] Anesthesia Record Part II Discharge Time: 11:24 Destination: Medical Surgical Department PACU nurse assessment reviewed?: Yes Patient Condition:: Good Anesthesia Complications:: None Swallowing reflex intact?: Yes Cyanosis?: No Blood Pressure: 129/68 Pulse Rate: 64 Temperature: 98.7 F Mental Status: Alert & Oriented Pain level:: 5 Nausea and/or vomitting:: None Intake, IV Amount: 0
[2021-03-05 07:58] LABS: Chloride 110 mmol/L (98-107); Potassium 3.4 mmoL/L (3.5-5.1); Sodium 138 mmol/L (136-145)
[2021-03-05 08:01] LABS: Anion Gap 6.4 mEq/L (5-15); Blood Urea Nitrogen 10 mg/dl (7-17); Carbon Dioxide 25 mmol/L (22.0-30.0); Creatinine Clearance Estimated 35 mL/min (50-200); Estimated Glomerular Filt Rate 69 ml/min (>60); GFR (African American) 84 ML/MIN (>60)
[2021-03-05 08:02] LABS: Calcium 7.4 mg/dl (8.4-10.2); Glucose 168 mg/dl (74-100)
--- NOTE | 2021-03-05 08:57 | P.PN_ITS ---
Subjective Narrative: Patient without complaints. Tolerating clear liquids without issue. Multiple liquid bowel movements. Hemoglobin 9.0 Progress Note: A&P (1) Tubulovillous adenoma of colon Status: Acute Assessment and Plan for All Diagnoses:: Full liquid diet. Exam Vital signs and Labs for Last 24 Hours: Temp Pulse Resp BP Pulse Ox 98.7 F 64 18 129/68 98 03/05/21 07:43 03/05/21 07:43 03/05/21 07:38 03/05/21 07:43 03/05/21 07:38 Laboratory Results - last 24 hr 03/04/21 12:30: POC Glucose 167 H 03/04/21 21:35: POC Glucose 177 H 03/05/21 05:33: POC Glucose 145 H 03/05/21 06:41: WBC 4.5 L D, RBC 3.23 L, Hgb 9.0 L, Hct 27.3 L, MCV 84.6, MCH 27.8, MCHC 32.9, RDW 17.4, Plt Count 175, MPV 8.2, Neut % (Auto) 70.8, Lymph % (Auto) 18.2, [place] % (Auto) 4.9, Eos % (Auto) 5.5, Baso % (Auto) 0.7, Neut # (Auto) 3.2, Lymph # (Auto) 0.8, [place] # (Auto) 0.2, Eos # (Auto) 0.3, Baso # (Auto) 0.0 03/05/21 06:41: Sodium 138, Potassium 3.4 L, Chloride 110 H, Carbon Dioxide 25, Anion Gap 6.4, BUN 10 D, Creatinine 0.80, Estimated Creat Clear 35, Estimated GFR 69, Est GFR ( Amer) 84 D, Glucose 168 H, Calcium 7.4 L I & O for Last 24 hours: Intake & Output 03/02/21 03/03/21 03/04/21 03/05/21 11:59 11:59 11:59 11:59 Intake Total 3000 / 3000 0 / 0 1800 / 1800 1580 / 1580 Output Total 150 / 150 Balance 2850 / 2850 0 / 0 1800 / 1799 1579 / 1579 Weight 241 lb 4 oz 238 lb 6 oz 224 lb Microbiology Reports for the Last 24 Hours: Microbiology 03/02/21 07:45 Urine,Catheterized Urine Culture - Final Salmonella enterica ssp arizon - *Routine Abdominal Exam Present: soft Comments: Dressing intact
[2021-03-05 12:34] LABS: POC Glucose,Bedside 191 (70-110)
[2021-03-05 16:33] LABS: POC Glucose,Bedside 231 (70-110)
--- NOTE | 2021-03-05 20:08 | PC.NURSE ---
No acute changes. Pain med per director of online education administered 5 mg of morphine. VSS. CB in reach. Pt up to chair.
--- NOTE | 2021-03-05 21:21 | HMH.ACPN2 ---
Internal Medicine - PN: Subj *Date: 03/05/21 *Time: 21:21 Interval history: FAMILY MEDICINE CONSULT NOTE: Ms. Heard is a 80-year-old white female with history of hypertension, hyperlipidemia, coronary artery disease, type 2 diabetes mellitus, and hypothyroidism who is now 3 days status post right colectomy for a large tubulovillous adenoma of the cecum. I have been asked to consult on the patient regarding her chronic medical issues. She did well during surgery. She has had an uncomplicated postoperative course. She has been advanced to full liquid diet which she is tolerating well. She notes that her stools are slightly formed today. No unusual complaints of pain. Exam Vital signs and Labs for Last 24 Hours: Temp Pulse Resp BP Pulse Ox 98.3 F 72 18 140/67 98 03/05/21 18:00 03/05/21 18:00 03/05/21 18:00 03/05/21 18:00 03/05/21 18:00 Laboratory Results - last 24 hr 03/04/21 21:35: POC Glucose 177 H 03/05/21 05:33: POC Glucose 145 H 03/05/21 06:41: WBC 4.5 L D, RBC 3.23 L, Hgb 9.0 L, Hct 27.3 L, MCV 84.6, MCH 27.8, MCHC 32.9, RDW 17.4, Plt Count 175, MPV 8.2, Neut % (Auto) 70.8, Lymph % (Auto) 18.2, [place] % (Auto) 4.9, Eos % (Auto) 5.5, Baso % (Auto) 0.7, Neut # (Auto) 3.2, Lymph # (Auto) 0.8, [place] # (Auto) 0.2, Eos # (Auto) 0.3, Baso # (Auto) 0.0 03/05/21 06:41: Sodium 138, Potassium 3.4 L, Chloride 110 H, Carbon Dioxide 25, Anion Gap 6.4, BUN 10 D, Creatinine 0.80, Estimated Creat Clear 35, Estimated GFR 69, Est GFR ( Amer) 84 D, Glucose 168 H, Calcium 7.4 L 03/05/21 12:22: POC Glucose 191 H 03/05/21 16:03: POC Glucose 231 H I & O for Last 24 hours: Intake & Output 03/03/21 03/04/21 03/05/21 03/06/21 11:59 11:59 11:59 11:59 Intake Total 0 / 0 1800 / 1800 1580 / 1580 2390 / 2390 Output Total Balance 0 / 0 1800 / 1799 1579 / 1579 2390 / 2390 Weight 241 lb 4 oz 238 lb 6 oz 224 lb Narrative: She is sitting up in the chair visiting with her . She is alert and oriented. Color is normal. HEENT shows the cranium to be atraumatic and normocephalic. Sclera and conjunctive are clear. Nares patent. Oropharynx shows moist mucous membranes. Neck is supple with no masses, thyromegaly, or bruits. Lungs are clear to auscultation. Heart is regular with no murmurs. Abdomen is obese, soft, nondistended with appropriate postoperative tenderness. Lower extremities show trace to 1+ pretibial edema. Assessment and Plan (1) S/P right colectomy Status: Acute Category: Surgical Code(s): Z90.49 - Acquired absence of other specified parts of digestive tract (2) Tubulovillous adenoma of colon Status: Acute Category: Medical Code(s): D12.6 - Benign neoplasm of colon, unspecified (3) Postoperative anemia Status: Acute Category: Medical Code(s): D64.9 - Anemia, unspecified (4) Hypothyroidism (acquired) Status: Acute Category: Medical Code(s): E03.9 - Hypothyroidism, unspecified (5) HTN (hypertension) Status: Chronic Qualifiers: Hypertension type: essential hypertension Qualified Code(s): I10 - Essential (primary) hypertension Category: Medical Code(s): I10 - Essential (primary) hypertension (6) Dyslipidemia Status: Acute Category: Medical Code(s): E78.5 - Hyperlipidemia, unspecified (7) Type 2 diabetes mellitus Status: Acute Category: Medical Code(s): E11.9 - Type 2 diabetes mellitus without complications (8) History of ASCVD Status: Acute Category: Medical Code(s): Z86.79 - Personal history of other diseases of the circulatory system - Assessment and plan all Dx Assessment and Plan for all problems:: She appears to be doing quite well postoperatively. She is tolerating advancement in her diet. Her vital signs have been stable. She has been mildly anemic with a hemoglobin as low as 8.2 but back to 9.0 this morning. Oreilly catheter has been removed. She is on Lovenox for DVT prophylaxis. We will begin resuming he
[2021-03-06] VITALS: BP 138/64; PULSE 62; RESP 16; TEMP 36.7; O2SAT 97
[2021-03-06 00:50] LABS: POC Glucose,Bedside 220 (70-110)
[2021-03-06 02:00] VITALS: BP 144/58; PULSE 64; RESP 17; TEMP 36.6; O2SAT 96
[2021-03-06 04:30] VITALS: BP 145/73; PULSE 69; RESP 18; TEMP 36.7; O2SAT 99
[2021-03-06 05:00] VITALS: BMI 42.3
--- NOTE | 2021-03-06 07:58 | PC.NURSE ---
patient has been pleasant this shift. she has slept well. no acute changes this shift. a&o x4. call light within reach. midline abd dressing remains c/d/i and shows no signs of infection
[2021-03-06 08:00] VITALS: BP 134/54; PULSE 80; RESP 18; TEMP 36.8; O2SAT 98
--- NOTE | 2021-03-06 08:30 | HMH.GSPN ---
Subjective Patient reports: feels better, flatus, bowel movement Progress Note: A&P (1) S/P right colectomy Status: Acute Assessment and plan: Overall, continuing to do well status post right colectomy. Soft diet Possible discharge home later today (2) Tubulovillous adenoma of colon Status: Acute Assessment and plan: Final pathology reveals no invasive carcinoma (3) Postoperative anemia Status: Acute Assessment and plan: stable (4) Hypothyroidism (acquired) Status: Acute (5) HTN (hypertension) Status: Chronic (6) Dyslipidemia Status: Acute (7) Type 2 diabetes mellitus Status: Acute (8) History of ASCVD Status: Acute Exam Vital signs and Labs for Last 24 Hours: Temp Pulse Resp BP Pulse Ox 98.1 F 69 18 145/73 H 99 03/06/21 04:30 03/06/21 04:30 03/06/21 04:30 03/06/21 04:30 03/06/21 04:30 Laboratory Results - last 24 hr 03/05/21 12:22: POC Glucose 191 H 03/05/21 16:03: POC Glucose 231 H 03/05/21 22:23: POC Glucose 220 H I & O for Last 24 hours: Intake & Output 03/03/21 03/04/21 03/05/21 03/06/21 11:59 11:59 11:59 11:59 Intake Total 0 / 0 1800 / 1800 1580 / 1580 2390 / 2390 Output Total 1 / 1 Balance 0 / 0 1800 / 1799 1579 / 1579 2390 / 2390 Weight 241 lb 4 oz 238 lb 6 oz 224 lb 224 lb 1 oz - Constitutional no acute distress - *Routine Respiratory Exam Absent: respiratory distress - *Routine Cardiovascular Exam Present: RRR - *Routine Abdominal Exam Present: soft Comments: Incision clean, dry, and intact. No erythema.
--- NOTE | 2021-03-06 08:34 | HMH.GSPN ---
Subjective Narrative: (see other note from earlier today) this note to add/document treatment for UTI Progress Note: A&P (1) S/P right colectomy Status: Acute (2) Tubulovillous adenoma of colon Status: Acute (3) Postoperative anemia Status: Acute (4) Hypothyroidism (acquired) Status: Acute (5) HTN (hypertension) Status: Chronic (6) Dyslipidemia Status: Acute (7) Type 2 diabetes mellitus Status: Acute (8) History of ASCVD Status: Acute (9) UTI (urinary tract infection) Status: Acute Assessment and plan: Salmonella species sensitive to Rocephin continue current therapy for now Exam Vital signs and Labs for Last 24 Hours: Temp Pulse Resp BP Pulse Ox 98.1 F 69 18 145/73 H 99 03/06/21 04:30 03/06/21 04:30 03/06/21 04:30 03/06/21 04:30 03/06/21 04:30 Laboratory Results - last 24 hr 03/05/21 12:22: POC Glucose 191 H 03/05/21 16:03: POC Glucose 231 H 03/05/21 22:23: POC Glucose 220 H I & O for Last 24 hours: Intake & Output 03/03/21 03/04/21 03/05/21 03/06/21 11:59 11:59 11:59 11:59 Intake Total 0 / 0 1800 / 1800 1580 / 1580 2390 / 2390 Output Total 1 / 1 Balance 0 / 0 1800 / 1799 1579 / 1579 2390 / 2390 Weight 241 lb 4 oz 238 lb 6 oz 224 lb 224 lb 1 oz Narrative: (see other note from earlier today) this note to add/document treatment for UTI - Constitutional Comments: see other note
--- NOTE | 2021-03-06 08:45 | HMH.ACPN2 ---
Internal Medicine - PN: Subj *Date: 03/06/21 *Time: 08:45 Interval history: No new complaints this morning. She rested well last night. Dr. Peters is planning to advance her diet and if tolerated okay, possibly discharge home later today. Exam Vital signs and Labs for Last 24 Hours: Temp Pulse Resp BP Pulse Ox 98.1 F 69 18 145/73 H 99 03/06/21 04:30 03/06/21 04:30 03/06/21 04:30 03/06/21 04:30 03/06/21 04:30 Laboratory Results - last 24 hr 03/05/21 12:22: POC Glucose 191 H 03/05/21 16:03: POC Glucose 231 H 03/05/21 22:23: POC Glucose 220 H I & O for Last 24 hours: Intake & Output 03/03/21 03/04/21 03/05/21 03/06/21 11:59 11:59 11:59 11:59 Intake Total 0 / 0 1800 / 1800 1580 / 1580 2390 / 2390 Output Total 1 / 1 Balance 0 / 0 1800 / 1799 1579 / 1579 2390 / 2390 Weight 241 lb 4 oz 238 lb 6 oz 224 lb 224 lb 1 oz Narrative: Sitting up in the chair. Alert and oriented. Lungs are clear. Heart is regular. Extremities with 1+ edema. Assessment and Plan (1) S/P right colectomy Status: Acute Category: Surgical Code(s): Z90.49 - Acquired absence of other specified parts of digestive tract (2) Tubulovillous adenoma of colon Status: Acute Category: Medical Code(s): D12.6 - Benign neoplasm of colon, unspecified (3) Postoperative anemia Status: Acute Category: Medical Code(s): D64.9 - Anemia, unspecified (4) Hypothyroidism (acquired) Status: Acute Category: Medical Code(s): E03.9 - Hypothyroidism, unspecified (5) HTN (hypertension) Status: Chronic Qualifiers: Hypertension type: essential hypertension Qualified Code(s): I10 - Essential (primary) hypertension Category: Medical Code(s): I10 - Essential (primary) hypertension (6) Dyslipidemia Status: Acute Category: Medical Code(s): E78.5 - Hyperlipidemia, unspecified (7) Type 2 diabetes mellitus Status: Acute Category: Medical Code(s): E11.9 - Type 2 diabetes mellitus without complications (8) History of ASCVD Status: Acute Category: Medical Code(s): Z86.79 - Personal history of other diseases of the circulatory system (9) UTI (urinary tract infection) Status: Acute Category: Medical Code(s): N39.0 - Urinary tract infection, site not specified - Assessment and plan all Dx Assessment and Plan for all problems:: Medically stable for discharge when okay with surgery service. She will resume her maintenance medications at home after discharge and follow-up with her PCP, Dr. Lora within the next 1 to 2 weeks.
[2021-03-06 10:00] VITALS: BP 126/68; PULSE 81; RESP 20; TEMP 36.7; O2SAT 100
[2021-03-06 12:00] VITALS: BP 133/60; PULSE 70; RESP 16; TEMP 36.7; O2SAT 97
--- NOTE | 2021-03-06 12:06 | HMH.DCSUM ---
General - General Admission date:: 03/02/21 Discharge date: 03/06/21 HPI HPI: This is a 80-year-old female who was recently diagnosed with a tubulovillous adenoma of the cecum. The lesion was not amenable to colonoscopic removal. After discussion with the patient concerning the risks and benefits the decision was made to proceed with right colectomy. Hospital Course Hospital Course: On the date of admission the patient underwent right colectomy. Please see operative report for detail. Postoperatively, she progressed well. She remained afebrile with stable and normal vital signs. She had a very mild postoperative ileus and showed some signs of bowel function after approximately 48 hours. Cultures obtained from Oreilly catheter placement at the time of operation revealed Salmonella species. She was placed on Rocephin and continued this medication through the duration of her hospitalization. At the time of discharge the decision was made to complete a course of Bactrim secondary to the atypical nature of the infection (Salmonella species). Mild postoperative anemia noted. Her hemoglobin remained stable and she did not require transfusion. Primary care consultation was obtained during her hospitalization. She was seen by the service of Dr. Laurent. Their evaluation was much appreciated. She was continued on her home medications as soon as bowel function returned postoperatively. Objective Vital signs: Temp Pulse Resp BP Pulse Ox 98.0 F 81 20 126/68 100 03/06/21 10:00 03/06/21 10:00 03/06/21 10:00 03/06/21 10:00 03/06/21 10:00 no acute distress - *Routine HEENT Exam Head: Present: normocephalic Eye: Present: EOMI ENT: Present: mucous membranes moist - *Routine Neck Exam Present: full ROM - Routine Chest/Breast/Axilla Exam Chest wall: Absent: tenderness - *Routine Respiratory Exam Absent: respiratory distress - *Routine Cardiovascular Exam Present: RRR - *Routine Abdominal Exam Present: soft - *Routine Rectal Exam Patient deferred: visual exam - *Routine Exam Patient deferred: external exam - *Routine Extremities Exam Absent: cyanosis - Routine Back/Spine/Pelvis Exam Back/Spine: Present: full ROM - *Routine Skin Exam Absent: erythema - *Routine Neurological Exam Present: alert - Routine Psychiatric Exam Present: normal affect Results Labs on day of discharge: Labs from last 24 hours 08/02/21 08/02/21 08/02/21 22:23 16:03 12:22 POC Glucose 220 H 231 H 191 H DS: Diagnosis - Discharge Diagnosis (1) S/P right colectomy Status: Acute (2) Tubulovillous adenoma of colon Status: Acute (3) Postoperative anemia Status: Acute (4) Hypothyroidism (acquired) Status: Acute (5) HTN (hypertension) Status: Chronic (6) Dyslipidemia Status: Acute (7) Type 2 diabetes mellitus Status: Acute (8) History of ASCVD Status: Acute (9) UTI (urinary tract infection) Status: Acute Discharge Plan - Patient Discharge Instructions ACTIVITY: No heavy lifting DIET: advance to your usual diet Patient Instructions: DI for Colectomy, DI for Urinary Tract Infection (UTI), DI for Surgical Site Infection, Catheter-associated Urinary Tract Infection - Follow up Plan Follow up with: Aubrey Peters MD [Staff Physician] - (Nurse visit for staple removal on March 12. Physician visit on March 20.) Disposition: Home, Self-Care Condition at discharge:: Improved Home Medications: Home Medications Medication Instructions Recorded Confirmed Type Insulin Glargine,Hum.rec.anlog 14 units SQ BID 01/18/19 03/02/21 History [Toukarly Solostar] Insulin NPH Hum/Reg Insulin Hm 10 unit SQ TIDWM 01/18/19 03/02/21 History [Novolin 70-30 100 Unit/ml Vial] Fluticasone Propionate 1 spray NS BID PRN 06/13/20 03/02/21 History Atorvastatin Calcium [Lipitor 80mg 80 mg PO DAILY 01/15/21 03/02/21 History Tablet*]
--- NOTE | 2021-03-06 14:16 | PC.NURSE ---
late entry, half of patient angela removed and replaced with steri strips
[2021-03-06 20:32] LABS: POC Glucose,Bedside 127 (70-110)
== END 2021-03-06 15:30 | disposition home or self-care (01) | DRG 330 ==
PROVIDERS: Admitting Provider Surgery; PCP Family Medicine; Visit Provider Surgery
PROC: 0DBF0ZZ Excision of Right Large Intestine, Open Approach (ICD-10-PCS; CPT 44140; principal; 2021-03-02 07:30)
DX: D12.6 Benign neoplasm of colon, unspecified (principal); K56.7 Ileus, unspecified; N39.0 Urinary tract infection, site not specified; Z20.822 Contact with and (suspected) exposure to COVID-19; Z79.4 Long term (current) use of insulin; Z95.5 Presence of coronary angioplasty implant and graft; Z96.641 Presence of right artificial hip joint; E11.51 Type 2 diabetes mellitus with diabetic peripheral angiopathy without gangrene; E78.5 Hyperlipidemia, unspecified; I25.10 Atherosclerotic heart disease of native coronary artery without angina pectoris; I11.0 Hypertensive heart disease with heart failure; I50.9 Heart failure, unspecified; E03.9 Hypothyroidism, unspecified; Z85.850 Personal history of malignant neoplasm of thyroid; D64.9 Anemia, unspecified
CPT/HCPCS: 44140; 36415; 80048; 80053; 81001; 82378; 82962; 85007; 85014; 85018; 85025; 85610; 87086; 87088; 87186; 88309; 93005; 96372; 96374; J2405; J2543; J2710; U0003

== ENCOUNTER 2021-03-14 19:33 | Inpatient (IN) | payer MEDICARE, SELFPAY ==
[2021-03-14 19:35] VITALS: BP 188/98; PULSE 104; RESP 18; TEMP 37.3; O2SAT 99; BMI 42.2
[2021-03-14 19:42] VITALS: BMI 42.2
--- NOTE | 2021-03-14 19:43 | CT_ITS ---
PROCEDURE INFORMATION: Exam: CT Abdomen And Pelvis With Contrast Exam date and time: 03/14/2021 7:43 PM Age: 80 years old Clinical indication: Other: Rectal bleeding; Abdominal pain; Generalized; Prior surgery; Surgery date: <1 month; Surgery type: Bleeding colon polyps addressed in surgery; Additional info: Low abd TECHNIQUE: Imaging protocol: Computed tomography of the abdomen and pelvis with contrast. Radiation optimization: All CT scans at this facility use at least one of these dose optimization techniques: automated exposure control; mA and/or kV adjustment per patient size (includes targeted exams where dose is matched to clinical indication); or iterative reconstruction. Contrast material: ISOVUE; Contrast volume: 75 ml; Contrast route: IV; COMPARISON: US KIDNEY 09/22/2019 8:39 AM FINDINGS: Lungs: Mild bilateral atelectasis. Liver: The liver demonstrates nodular contours and heterogeneous parenchyma. Findings are compatible with cirrhosis. Gallbladder and bile ducts: Status post cholecystectomy. Pancreas: Normal. No ductal dilation. Spleen: Spleen notable for speckled calcium compatible with granulomata. The spleen is mildly enlarged. Adrenal glands: Normal. No mass. Kidneys and ureters: Hypodensities in the bilateral kidneys cannot be further characterize in the study. No hydronephrosis. Stomach and bowel: Postsurgical changes related to the stomach. Appendix: No evidence of appendicitis. Intraperitoneal space: Small volume ascites. Vasculature: Coronary artery calcifications are seen. There is a filling defect in the superior mesenteric vein data below the thrombus. See image 55 of series 3. It measures about 5 x 6 mm in transaxial dimensions and about 25 mm in length. Lymph nodes: Mildly prominent retroperitoneal lymph nodes. Urinary bladder: Unremarkable as visualized. Reproductive: Calcific changes in the uterus may be due to the fibroids. Bones/joints: Right hip replacement causes metal artifact. Soft tissues: There is laparotomy incision. There is a collection of fluid underneath it inferiorly that measures about 3 x 4 cm. No rim enhancement. This is compatible with the seroma. IMPRESSION: 1. Findings compatible with cirrhosis and portal hypertension. 2. 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 3. Small probable seroma underlying the inferior aspect of the laparotomy measures about 3 x 4 cm. Sterility cannot be ascertained with imaging.
--- NOTE | 2021-03-14 19:43 | XR_ITS ---
PROCEDURE INFORMATION: Exam: XR Chest Exam date and time: 03/14/2021 7:43 PM Age: 80 years old Clinical indication: Shortness of breath; Additional info: Heartburn TECHNIQUE: Imaging protocol: XR of the chest. Views: 1 view. COMPARISON: CR XR CHEST 2V 01/15/2021 4:20 PM FINDINGS: Lungs: Mild bibasilar atelectasis. Pleural spaces: Unremarkable. No pleural effusion. No pneumothorax. Heart/Mediastinum: Unremarkable. No cardiomegaly. Bones/joints: Unremarkable. Other findings: Rotation. IMPRESSION: Mild bibasilar atelectasis
--- NOTE | 2021-03-14 19:49 | ECG_ITS ---
APPROVED REPORT Exam: Resting ECG HR:91 bpm ECG Measurements Heart Rate 91 AXES NE 144 P 35 QRSd 86 QRS -54 QT 378 T 83 QTc 464 Conclusion Normal sinus rhythm Left anterior fascicular block Abnormal ECG Electronically signed by : Olivier Currie MD 03/15/2021 22:28:34
--- NOTE | 2021-03-14 20:18 | PC.NURSE ---
specimens collected for blood,cultures, lactic and urine and sent to lab.
[2021-03-14 20:21] LABS: Microscopic, Urine URINE MICROSCOPIC (MICROSCOPIC)
[2021-03-14 20:23] LABS: Appearance,Urine CLEAR (Clear); Bilirubin,Urine Negative (Negative); Blood, Urine Negative (Negative); Color,Urine YELLOW (Yellow); Glucose,Urine (UA) Negative (Negative); Ketones,Urine Negative (Negative); Leukocyte Esterase,Urine Negative (Negative); Nitrate,Urine Negative (Negative); PH,Urine 6.5 (5.0-8.5); Protein,Urine TRACE (Negative); Specific Gravity, Urine 1.025 (1.005-1.030)
[2021-03-14 20:25] LABS: Basophils % 0.3 % (0.1-2.0); Eosinophils # 0.4 K/mm3 (0.0-0.4); Eosinophils % 3.7 % (0.1-12.0); Hematocrit 33.4 % (37.0-47.0); Hemoglobin 10.3 g/dL (12.2-16.2); Lymphocytes # 0.6 K/mm3 (0.7-4.5); Lymphocytes % 6.6 % (10-50); Mean Corpuscular HGB Conc 30.8 g/dL (31.8-35.4); Mean Corpuscular Hemoglobin 27.3 pg (27.0-31.2); Mean Corpuscular Volume 88.6 fl (81-99); Monocytes # 0.3 K/mm3 (0.1-1.0); Monocytes % 3.4 % (1.7-9.3); Neutrophils % 85.9 % (37.0-80.0); Platelet Count 334 K/mm3 (142-424); Red Blood Count 3.77 M/mm3 (4.20-5.40); Red Cell Distribution Width 17.2 % (11.5-17.5); White Blood Count 9.3 K/mm3 (4.8-10.8)
--- NOTE | 2021-03-14 20:27 | HMH.EDNVD ---
ED Disposition Clinical Impression: Superior mesenteric vein thrombosis, S/P right colectomy, IDDM (insulin dependent diabetes mellitus) Disposition: Admitted as Observation Condition on Discharge: Good - Critical Care Critical Care Time: No Attestation: On 03/14/21, the high probability of a clinically significant, sudden or life threatening deterioration of the following system(s) required my full and direct attention, intervention and personal management. The time I documented below is in addition to time spent performing reported procedures but includes the following listed in this critical care notation. Medical Decision Making - Medical Records Medical records reviewed: Yes: I reviewed the patient's medical records. - Cristian Inquiry Pt receiving controlled substance: No Vital Signs: 03/14/21 19:35 Temperature 99.1 F Temperature Source Oral Pulse Rate [Right] 104 H Respiratory Rate 18 Blood Pressure [Right Arm] 188/98 H Blood Pressure Mean [Right Arm] 128 02 Sat by Pulse Oximetry 99 - Lab Data Lab results reviewed: Yes: I reviewed the patient's lab results. Lab Results 03/14/21 20:05: Urine Color Yellow, Urine Appearance Clear, Urine pH 6.5, Ur Specific [place] 1.025, Urine Protein Trace, Urine Glucose (UA) Negative, Urine Ketones Negative, Urine Blood Negative, Urine Nitrate Negative, Urine Bilirubin Negative, Urine Urobilinogen 1.0, Ur Leukocyte Esterase Negative, Urine RBC None, Urine WBC None, Ur Squamous Epith Cells 3-5, Urine Bacteria None 03/14/21 20:05: WBC 9.3, RBC 3.77 L, Hgb 10.3 L, Hct 33.4 L, MCV 88.6, MCH 27.3, MCHC 30.8 L, RDW 17.2, Plt Count 334, MPV 8.0, Neut % (Auto) 85.9 H, Lymph % (Auto) 6.6 L, [place] % (Auto) 3.4, Eos % (Auto) 3.7, Baso % (Auto) 0.3, Neut # (Auto) 8.0 H, Lymph # (Auto) 0.6 L, [place] # (Auto) 0.3, Eos # (Auto) 0.4, Baso # (Auto) 0.0, Total Counted 100, Neutrophils % (Manual) 91 H, Lymphocytes % (Manual) 6 L, Monocytes % (Manual) 2, Eosinophils % (Manual) 1, Platelet Estimate Normal, Hypochromasia 1+, Spherocytes 1+, ESR 54 H 03/14/21 20:05: Sodium 140, Potassium 3.4 L, Chloride 106, Carbon Dioxide 24, Anion Gap 13.4, BUN 7, Creatinine 0.80, Estimated Creat Clear 33, Estimated GFR 69, Est GFR ( Amer) 84, Glucose 257 H, Calcium 7.7 L, Total Bilirubin 0.6, AST 29, ALT 14, Alkaline Phosphatase 165 H, Troponin I < 0.01, C-Reactive Protein 52.5 H, Total Protein 6.6, Albumin 3.5, Globulin 3.1, Albumin/Globulin Ratio 1.1, Amylase 41, Lipase 114, Procalcitonin 0.241 03/14/21 22:39: SARS-CoV-2 (PCR) Not detected, Influenza A Untype (PCR) Not detected, Influenza Type B (PCR) Not detected 03/14/21 23:05: Troponin I < 0.01 Result diagrams: 03/14/21 20:05 03/14/21 20:05 Orders (Tests/Meds): ED MEDICATIONS Generic Name Dose Route Start Last Admin Trade Name Freq PRN Reason Stop Dose Admin Rivaroxaban 15 mg 03/15/21 23:23 Rivaroxaban 15mg Tablet PO 03/15/21 23:24 ONCE ONE Discontinued Medications Generic Name Dose Route Start Last Admin Trade Name Freq PRN Reason Stop Dose Admin Enoxaparin Sodium 90 mg 03/14/21 23:24 Enoxaparin 100mg/Ml Syringe SQ 03/14/21 23:25 ONCE ONE Iopamidol 75 ml 03/14/21 21:26 03/14/21 21:27 Iopamidol-370 (76%);100ml Bottle IV 03/14/21 21:27 75 ml ONCE ONE Administration Sodium Chloride 10 ml 03/14/21 21:26 03/14/21 21:27 Sodium Chloride 0.9% 10ml Syr (Rad Only) IV 03/14/21 21:27 10 ml ONCE ONE Administration ORDERS Category Date Time Status Troponin I Q3H Lab 03/15/21 01:45 Ordered ECG initial [place] Routine Y 03/14/21 19:49 Ordered - Radiology Data #1 Image(s): Chest Image Reviewed: Yes I reviewed the patient's radiology image Preliminary Findings: Normal/NAD - CT Data CT Scan: Abdomen, Pelvis Time Received: 23:[address] Reviewed: Yes: I have viewed the radiologist's interpretation Preliminary Findings: Abnormal (see report ) - Physician Consults Physician Consulted:
--- NOTE | 2021-03-14 20:34 | PC.NURSE ---
calling medical records
[2021-03-14 20:35] LABS: MANUAL DIFFERENTIAL MANUAL DIFFERENTIAL (MANUAL DIFF)
[2021-03-14 20:38] LABS: Chloride 106 mmol/L (98-107)
[2021-03-14 20:39] LABS: Potassium 3.4 mmoL/L (3.5-5.1); Sodium 140 mmol/L (136-145)
[2021-03-14 20:41] LABS: Amylase 41 U/L (30-110); Blood Urea Nitrogen 7 mg/dl (7-17); Creatinine Clearance Estimated 33 mL/min (50-200); Estimated Glomerular Filt Rate 69 ml/min (>60); GFR (African American) 84 ML/MIN (>60)
[2021-03-14 20:42] LABS: Alanine Aminotransferase 14 U/L (12-78); Albumin Level 3.5 g/dl (3.5-5.0); Albumin/Globulin Ratio 1.1 (1.1-1.8); Alkaline Phosphatase 165 U/L (38-126); Anion Gap 13.4 mEq/L (5-15); Aspartate Amino Transferase 29 U/L (14-36); Bilirubin,Total 0.6 mg/dl (0.2-1.3); Calcium 7.7 mg/dl (8.4-10.2); Carbon Dioxide 24 mmol/L (22.0-30.0); Globulin 3.1 g/dL (1.3-3.2); Glucose 257 mg/dl (74-100); Lipase 114 U/L (23-300); Total Protein,Serum 6.6 g/dl (6.3-8.2)
--- NOTE | 2021-03-14 20:48 | PC.NURSE ---
spoke with dr osorio. discussed case. will plan to dc if no acute findings for follow up with dr osorio tomorrow
[2021-03-14 20:49] LABS: C-Reactive Protein 52.5 mg/L (0-4)
[2021-03-14 20:59] LABS: Troponin I < 0.01 ng/ml (0.00-0.034)
[2021-03-14 21:02] LABS: Eosinophils % 1 % (0-3); Hypochromasia 1+; Lymphocytes % 6 % (10-50); Monocytes % 2 % (2-9); Neutrophils % 91 % (42-76); Platelet Estimate Normal; Spherocytes 1+; Total Cells Counted 100
[2021-03-14 21:03] LABS: Erythrocyte Sedimentation Rate 54 mm/hr (0-30)
--- NOTE | 2021-03-14 21:10 | PC.NURSE ---
iv infiltrated to left ac. contacted house for assistance tocome to ct for new line.
[2021-03-14 21:28] LABS: Procalcitonin 0.241 ng/mL (0.0-2.0)
[2021-03-14 22:00] VITALS: BP 151/76; PULSE 85; O2SAT 96
[2021-03-14 22:30] VITALS: BP 150/78; PULSE 84; O2SAT 97
[2021-03-14 22:51] LABS: Coronavirus 19, PCR Not Detected (NotDetected); Influenza A, PCR Not Detected (NotDetected); Influenza B, PCR Not Detected (NotDetected)
--- NOTE | 2021-03-14 23:03 | PC.NURSE ---
Dr Laurent paged at this time
--- NOTE | 2021-03-14 23:03 | PC.NURSE ---
2230 - pt updated on current status of patient. requesting to speak to Dr Mac. Informed him that Dr Mac was busy attending to the ED patients at this time, but that he would be made aware. Dr Mac informed pt wanted to speak to him.
--- NOTE | 2021-03-14 23:06 | PC.NURSE ---
dr goodwin speaking with dr naranjo at this time.
[2021-03-14 23:30] VITALS: BP 163/93; PULSE 93; O2SAT 97
[2021-03-14 23:33] LABS: Troponin I < 0.01 ng/ml (0.00-0.034)
[2021-03-15] VITALS (8 sets, daily range): BP systolic 136–159; BP diastolic 71–84; PULSE 85–106; RESP 16–18; TEMP 36.9–37.7; O2SAT 95–98; BMI 41.6
--- NOTE | 2021-03-15 00:36 | PC.NURSE ---
patient up to floor via stretcher.
[2021-03-15 02:47] LABS: Troponin I < 0.01 ng/ml (0.00-0.034)
[2021-03-15 05:54] LABS: POC Glucose,Bedside 185 (70-110)
[2021-03-15 06:20] LABS: Basophils % 0.2 % (0.1-2.0); Eosinophils # 0.1 K/mm3 (0.0-0.4); Hematocrit 29.5 % (37.0-47.0); Hemoglobin 9.4 g/dL (12.2-16.2); Lymphocytes # 0.8 K/mm3 (0.7-4.5); Lymphocytes % 6.7 % (10-50); Mean Corpuscular HGB Conc 31.9 g/dL (31.8-35.4); Mean Corpuscular Hemoglobin 28.2 pg (27.0-31.2); Mean Corpuscular Volume 88.4 fl (81-99); Mean Platelet Volume 8.3 fl (7.4-10.4); Monocytes # 0.4 K/mm3 (0.1-1.0); Monocytes % 3.9 % (1.7-9.3); Neutrophils # 9.8 K/mm3 (1.8-7.8); Neutrophils % 88.1 % (37.0-80.0); Platelet Count 247 K/mm3 (142-424); Red Blood Count 3.34 M/mm3 (4.20-5.40); White Blood Count 11.1 K/mm3 (4.8-10.8)
[2021-03-15 06:22] LABS: MANUAL DIFFERENTIAL MANUAL DIFFERENTIAL (MANUAL DIFF)
[2021-03-15 06:24] LABS: Chloride 108 mmol/L (98-107); Potassium 3.6 mmoL/L (3.5-5.1); Sodium 139 mmol/L (136-145)
[2021-03-15 06:27] LABS: Anion Gap 11.6 mEq/L (5-15); Blood Urea Nitrogen 7 mg/dl (7-17); Calcium 7.2 mg/dl (8.4-10.2); Carbon Dioxide 23 mmol/L (22.0-30.0); Creatinine Clearance Estimated 33 mL/min (50-200); Estimated Glomerular Filt Rate 81 ml/min (>60); GFR (African American) 98 ML/MIN (>60); Glucose 179 mg/dl (74-100)
--- NOTE | 2021-03-15 06:50 | HMH.GSCON ---
*Admission Date: 03/15/21 *Reason for consult:: Status post right colectomy *History of present illness: This is a 80-year-old female who is 2 weeks status post right colectomy for complex tubulovillous adenoma. She initially progressed very well; however, on the day following discharge presented to an outside facility with blood per rectum. She was transferred to the [facility] for further evaluation management where a colonoscopy showed a 2 cm mucosal ulceration at the anastomosis. At the time of evaluation no sign of active bleeding was noted. She received packed red blood cells and was subsequently discharged after close observation. Overnight she presented to [facility] for evaluation and management of nausea and bloating . 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 She was admitted to the medical service for anticoagulation. Note: At the time of her right colectomy she was found to have increased sanguinous ooze and hemostasis was difficult. Her repeat bleeding episode from mucosal ulceration at the anastomosis (this type of mucosal ulceration is certainly not atypical 1 week status post ileocolic anastomosis) is also consistent with overall increased bleeding risk . Review of Systems - Constitutional Denies chills - ENT Denies difficulty swallowing - *Cardiovascular Denies chest pain - *Respiratory Denies cough - *Gastrointestinal Reports bloating, Reports nausea, Denies vomiting blood, Denies bright, red blood in stools, Denies black, tarry stools - *Neurologic Denies tingling/numbness/burning sensations [facility] History Medical History: Reports:: Cancer (breast, 2010), Congestive Heart Failure, Coronary Artery Disease, Diabetes Mellitus Type 2, Hyperlipidemia, Hypertension, MRSA, Peripheral Artery Disease, Peripheral Vascular Disease Denies:: Diabetes Mellitus Type 1, Internal Pacemaker, Seizures *Have you ever received a pneumonia vaccine?: Yes *Have you received a flu vaccine this season?: Yes Other Medical History: Reports: Anemia, Arthritis, Cataracts, Chemotherapy, Hypothyroidism, Liver Disease (fatty liver), Thyroid Disease (thyroidectomy). Denies: Blood Transfusion Reaction Laterality Cases: Left: Mastectomy, Other, Right: Total Hip Replacement Other Surgeries: Yes: Angioplasty (2 stents), Appendectomy, Bariatric Surgery, Cardiac Catheterization, Cholecystectomy, Colonoscopy, Coronary Stent, EGD, Hernia Repair, Thyroidectomy. No: Pacemaker Amputation: No Fractures: Yes (ankle, hip) - *Social History Last grade of school completed: Advanced degree Smoking Status: Never smoker Alcohol Intake: never Substance Use Type: denies use *Occupational Status:: retired Housing: house Household Members: spouse *Travel in the last 8 weeks: None Family Hx:: Non-contributory Meds Home Medications Medication Instructions Recorded Confirmed Type Insulin Glargine,Hum.rec.anlog 14 units SQ BID 01/18/19 03/15/21 History [[place] Solostar] Insulin NPH Hum/Reg Insulin Hm 10 unit SQ TIDWM 01/18/19 03/15/21 History [Novolin 70-30 100 Unit/ml Vial] Fluticasone Propionate 1 spray NS BID PRN 06/13/20 03/15/21 History Atorvastatin Calcium [Lipitor 80mg 80 mg PO DAILY 01/15/21 03/15/21 History Tablet*] Verapamil HCl [Verapamil ER] 240 mg PO DAILY 01/15/21 03/15/21 History Clopidogrel Bisulfate [Clopidogrel 75 mg PO DAILY 01/16/21 03/15/21 History 75mg Tab] carvediloL [Carvedilol 6.25mg Tab] 6.25 mg PO BID 01/16/21 03/15/21 History lisinopriL [Lisinopril] 40 mg PO DAILY 01/16/21 03/15/21 History Furosemide [Furosemide 20mg Tab*] 20 mg PO BID #60 tab 01/18/21 03/15/21 Rx Ferrous Sulfate [Ferrous Sulfate 325 mg PO BID 01/25/21 03/15/21 History 325mg Tablet] Levothyroxine Sodium [Synthroid 100 mcg PO DAILYDM 01/25/21 03/15/21 History 100mcg (0.1mg) tablet] Potassium Chloride [Klor-Con 10mEq 10 meq PO BID 01/25/21 03/15/21 History tab]
[2021-03-15 07:23] LABS: Anisocytosis 1+; Eosinophils % 1 % (0-3); Hypochromasia 1+; Lymphocytes % 6 % (10-50); Monocytes % 4 % (2-9); Neutrophils % 89 % (42-76); Platelet Estimate Normal; Total Cells Counted 100
--- NOTE | 2021-03-15 07:37 | PC.NURSE ---
Patient is alert and oriented x4. She ambulates with 2 assist. Patient has NS @ 75 in her LAC infusing. Patient has a midline incision to abdomen with steri-strips and angela that is open to air. Vital signs are stable, call light within reach, will continue to monitor.
--- NOTE | 2021-03-15 08:03 | P.CONPHA_ITS ---
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
--- NOTE | 2021-03-15 08:09 | HMH.PHAINT ---
clarified home med list using list from [facility]
[2021-03-15 11:27] LABS: POC Glucose,Bedside 157 (70-110)
--- NOTE | 2021-03-15 12:40 | HMH.HP ---
*Admission Date: 03/15/21 <Alma Chapman - 03/15/21 12:52> *Chief complaint: abdominal pain and distention <Alma Chapman - 03/15/21 12:52> *History of present illness: This is a 80-year-old female who is 2 weeks status post right colectomy for complex tubulovillous adenoma. She initially progressed very well; however, on the day following discharge presented to an outside facility with blood per rectum. She was transferred to the [facility] for further evaluation management where a colonoscopy showed a 2 cm mucosal ulceration at the anastomosis. At the time of evaluation no sign of active bleeding was noted. She received packed red blood cells and was subsequently discharged after close observation. Overnight she presented to [facility] for evaluation and management of nausea and bloating . 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 She was admitted to the medical service for anticoagulation. Note: At the time of her right colectomy she was found to have increased sanguinous ooze and hemostasis was difficult. Her repeat bleeding episode from mucosal ulceration at the anastomosis (this type of mucosal ulceration is certainly not atypical 1 week status post ileocolic anastomosis) is also consistent with overall increased bleeding risk . (above as per Dr. Peters) The patient's PCP is Tao Lora in [place]. She states this morning she has passed a small amount of gas but has not had a bowel movement since yesterday. Her abdomen still feels very distended. <Alma Chapman - 03/15/21 12:52> [facility] History I have reviewed the patient's past medical history: Yes <Alma Chapman 03/15/21 12:52> Medical History: Reports:: Cancer (breast, 2010), Congestive Heart Failure, Coronary Artery Disease, Diabetes Mellitus Type 2, Hyperlipidemia, Hypertension, MRSA, Peripheral Artery Disease, Peripheral Vascular Disease Denies:: Diabetes Mellitus Type 1, Internal Pacemaker, Seizures <Alma Chapman 03/15/21 12:52> *Have you ever received a pneumonia vaccine?: Yes <Alma Chapman 03/15/21 12:52> *Have you received a flu vaccine this season?: Yes <Alma Chapman 03/15/21 12:52> Other Medical History: Reports: Anemia, Arthritis, Cataracts, Chemotherapy, Hypothyroidism, Liver Disease (fatty liver), Thyroid Disease (thyroidectomy). Denies: Blood Transfusion Reaction <Alma Chapman 03/15/21 12:52> Laterality Cases: Left: Mastectomy, Other, Right: Total Hip Replacement <Alma Chapman 03/15/21 12:52> Other Surgeries: Yes: Angioplasty (2 stents), Appendectomy, Bariatric Surgery, Cardiac Catheterization, Cholecystectomy, Colonoscopy, Coronary Stent, EGD, Hernia Repair, Thyroidectomy. No: Pacemaker <Alma Chapman 03/15/21 12:52> Amputation: No <Alma Chapman 03/15/21 12:52> Fractures: Yes (ankle, hip) <Alma Chapman 03/15/21 12:52> Comment: right colectomy <Alma Chapman 03/15/21 12:52> - *Social History Last grade of school completed: Advanced degree <Alma Chapman 03/15/21 12:52> Smoking Status: Never smoker <Alma Chapman 03/15/21 12:52> Alcohol Intake: never <Alma Chapman 03/15/21 12:52> Substance Use Type: denies use <Alma Chapman 03/15/21 12:52> *Occupational Status:: retired <Alma Chapman 03/15/21 12:52> Housing: house <Alma Chapman 03/15/21 12:52> Household Members: spouse <Alma Chapman 03/15/21 12:52> *Travel in the last 8 weeks: None <Alma Chapman 03/15/21 12:52> Family Hx:: Non-contributory <Alma Chapman 03/15/21 12:52> Review of Systems - Constitutional Reports fatigue, Denies chills, Denies fever(s) <Alma Chapman 03/15/21 12:52> - Eyes Denies blurry vision, Denies double vision <Alma Chapman 03/15/21 12:52> - ENT Denies nasal congestion, Denies sore throat <Alma Chapman 03/15/21 12:52> - *Cardiovascular Denies chest pain, Denies shortness of breath <Alma Chapman - 03/15/21 12:52> - *Respiratory Denies
--- NOTE | 2021-03-15 17:08 | PC.NURSE ---
Pt is AxOx4, has rested intermittently t/o shift, remains on room air, has complained of pain and nausea one time and was treated per MAR, has ambulated to this shift, patient educated on the importance of ambulating and verbalizes understanding, angela to midline incision removed this shift
[2021-03-15 18:24] LABS: POC Glucose,Bedside 134 (70-110)
[2021-03-15 20:26] LABS: POC Glucose,Bedside 146 (70-110)
[2021-03-16 03:29] VITALS: BP 156/87; PULSE 76; RESP 16; TEMP 36.9; O2SAT 97
[2021-03-16 05:00] VITALS: BMI 41.6
[2021-03-16 05:29] LABS: POC Glucose,Bedside 138 (70-110)
--- NOTE | 2021-03-16 05:43 | PC.NURSE ---
Patient sat up in chair for a while this shift; ambulating to bathroom x standby assist. Voices no new concerns, call light in reach, bed at lowest level for safety; will continue to monitor.
[2021-03-16 06:53] LABS: Basophils % 0.3 % (0.1-2.0); Eosinophils # 0.4 K/mm3 (0.0-0.4); Eosinophils % 5.7 % (0.1-12.0); Hematocrit 26.4 % (37.0-47.0); Hemoglobin 8.6 g/dL (12.2-16.2); Lymphocytes # 0.9 K/mm3 (0.7-4.5); Lymphocytes % 11.2 % (10-50); Mean Corpuscular HGB Conc 32.7 g/dL (31.8-35.4); Mean Corpuscular Hemoglobin 28.4 pg (27.0-31.2); Mean Platelet Volume 7.9 fl (7.4-10.4); Monocytes # 0.3 K/mm3 (0.1-1.0); Monocytes % 4.1 % (1.7-9.3); Neutrophils # 6.1 K/mm3 (1.8-7.8); Neutrophils % 78.8 % (37.0-80.0); Platelet Count 289 K/mm3 (142-424); Red Blood Count 3.03 M/mm3 (4.20-5.40); Red Cell Distribution Width 16.8 % (11.5-17.5); White Blood Count 7.8 K/mm3 (4.8-10.8)
[2021-03-16 06:57] LABS: Chloride 109 mmol/L (98-107); Potassium 3.5 mmoL/L (3.5-5.1); Sodium 137 mmol/L (136-145)
[2021-03-16 07:00] LABS: Alanine Aminotransferase 8 U/L (12-78); Albumin Level 2.5 g/dl (3.5-5.0); Alkaline Phosphatase 103 U/L (38-126); Anion Gap 6.5 mEq/L (5-15); Aspartate Amino Transferase 17 U/L (14-36); Bilirubin,Total 0.7 mg/dl (0.2-1.3); Blood Urea Nitrogen 6 mg/dl (7-17); Carbon Dioxide 25 mmol/L (22.0-30.0); Creatinine Clearance Estimated 32 mL/min (50-200); Estimated Glomerular Filt Rate 81 ml/min (>60); GFR (African American) 98 ML/MIN (>60); Globulin 2.6 g/dL (1.3-3.2); Glucose 119 mg/dl (74-100); Total Protein,Serum 5.1 g/dl (6.3-8.2)
--- NOTE | 2021-03-16 07:04 | HMH.GSPN ---
Subjective Patient reports: feels better (She states that she feels much much better now ) Progress Note: A&P (1) Superior mesenteric vein thrombosis Status: Acute Assessment and plan: Continue anticoagulation as per primary service (2) S/P right colectomy Status: Acute (3) Anemia Status: Acute (4) CHF (congestive heart failure) Status: Chronic (5) History of ASCVD Status: Chronic (6) Hypothyroidism (acquired) Status: Chronic (7) Iron deficiency anemia Status: Chronic (8) Tubulovillous adenoma of colon Status: Chronic (9) Type 2 diabetes mellitus Status: Chronic (10) CAD (coronary artery disease) Status: Chronic (11) Essential hypertension Status: Chronic (12) HLD (hyperlipidemia) Status: Chronic Assessment and Plan for All Diagnoses:: Continue to improve with regard to symptomatology No sign of active bleeding Follow-up morning labs Okay from surgical standpoint to cautiously advance diet Exam Vital signs and Labs for Last 24 Hours: Temp Pulse Resp BP Pulse Ox 98.4 F 76 16 156/87 H 97 03/16/21 03:29 03/16/21 03:29 03/16/21 03:29 03/16/21 03:29 03/16/21 03:29 Laboratory Results - last 24 hr 03/15/21 05:34: Total Counted 100, Neutrophils % (Manual) 89 H, Lymphocytes % (Manual) 6 L, Monocytes % (Manual) 4, Eosinophils % (Manual) 1, Platelet Estimate Normal, Hypochromasia 1+, Anisocytosis 1+ 03/15/21 11:20: POC Glucose 157 H 03/15/21 16:15: POC Glucose 134 H 03/15/21 20:18: POC Glucose 146 H 03/16/21 05:22: POC Glucose 138 H I & O for Last 24 hours: Intake & Output 03/13/21 03/14/21 03/15/21 03/16/21 11:59 11:59 11:59 11:59 Intake Total 154 / 154 6 / 1736 Output Total 400 / 400 Balance -246 / -246 1735 / 173 Weight 213 lb 6 oz 212 lb 1.355 oz - Constitutional no acute distress - *Routine Respiratory Exam Absent: respiratory distress - *Routine Cardiovascular Exam Present: RRR - *Routine Abdominal Exam Present: soft
[2021-03-16 07:48] VITALS: BP 143/83; PULSE 75; RESP 18; TEMP 36.8; O2SAT 96
[2021-03-16 08:23] LABS: Calcium 6.9 mg/dl (8.4-10.2)
--- NOTE | 2021-03-16 08:31 | PC.NURSE ---
[id number] Florence from lab called with a Ca of 6.9, Dr. Noel notified of this lab at 0994
--- NOTE | 2021-03-16 08:41 | HMH.ACPN2 ---
Internal Medicine - PN: Subj *Date: 03/16/21 *Time: 08:41 Interval history: Patient feels better today, no bowel movement yet, feels hungry. Exam Vital signs and Labs for Last 24 Hours: Temp Pulse Resp BP Pulse Ox 98.2 F 75 18 143/83 H 96 03/16/21 07:48 03/16/21 07:48 03/16/21 07:48 03/16/21 07:48 03/16/21 07:48 Laboratory Results - last 24 hr 03/15/21 11:20: POC Glucose 157 H 03/15/21 16:15: POC Glucose 134 H 03/15/21 20:18: POC Glucose 146 H 03/16/21 05:22: POC Glucose 138 H 03/16/21 06:38: WBC 7.8 D, RBC 3.03 L, Hgb 8.6 L, Hct 26.4 L, MCV 87.0, MCH 28.4, MCHC 32.7, RDW 16.8, Plt Count 289, MPV 7.9, Neut % (Auto) 78.8, Lymph % (Auto) 11.2, [place] % (Auto) 4.1, Eos % (Auto) 5.7, Baso % (Auto) 0.3, Neut # (Auto) 6.1, Lymph # (Auto) 0.9, [place] # (Auto) 0.3, Eos # (Auto) 0.4, Baso # (Auto) 0.0 03/16/21 06:38: Sodium 137, Potassium 3.5, Chloride 109 H, Carbon Dioxide 25, Anion Gap 6.5, BUN 6 L, Creatinine 0.70, Estimated Creat Clear 32, Estimated GFR 81, Est GFR ( Amer) 98, Glucose 119 H, Calcium 6.9 L, Total Bilirubin 0.7, AST 17 D, ALT 8 L D, Alkaline Phosphatase 103, Total Protein 5.1 L, Albumin 2.5 L D, Globulin 2.6, Albumin/Globulin Ratio 1.0 L Vital Signs - 24 hr 03/15/21 11:18 03/15/21 16:00 03/15/21 20:00 Temperature 98.4 F 98.6 F 99.8 F H Pulse Rate [Left Radial] 93 H 93 H 85 Pulse Rate [Right] Respiratory Rate 17 18 16 Blood Pressure [Right Arm] 149/80 H 136/74 159/71 H 02 Sat by Pulse Oximetry 97 97 97 03/16/21 03:29 03/16/21 07:48 Temperature 98.4 F 98.2 F Pulse Rate [Left Radial] 75 Pulse Rate [Right] 76 Respiratory Rate 16 18 Blood Pressure [Right Arm] 156/87 H 143/83 H 02 Sat by Pulse Oximetry 97 96 I & O for Last 24 hours: Intake & Output 03/13/21 03/14/21 03/15/21 03/16/21 23:59 23:59 23:59 23:59 Intake Total 1890 / 1890 680 / 680 Output Total 400 / 400 Balance 1490 / 1490 680 / 680 Weight 216 lb 213 lb 6 oz 212 lb 1.355 oz - Constitutional no acute distress - *Routine HEENT Exam Head: Present: normocephalic Eye: Present: EOMI, PERRL ENT: Present: mucous membranes moist - *Routine Neck Exam Present: supple. Absent: lymphadenopathy - *Routine Respiratory Exam Present: CTA bilaterally - *Routine Cardiovascular Exam Present: RRR - *Routine Abdominal Exam Present: soft, normoactive bowel sounds. Absent: tenderness - *Routine Extremities Exam Absent: cyanosis, clubbing, edema - *Routine Skin Exam Present: warm. 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 Category: Medical Code(s): K55.069 - Acute infarction of intestine, part and extent unspecified (2) S/P right colectomy Status: Acute Category: Surgical Code(s): Z90.49 - Acquired absence of other specified parts of digestive tract (3) Anemia Status: Acute Qualifiers: Anemia type: iron deficiency Iron deficiency anemia type: unspecified iron deficiency Qualified Code(s): D50.9 - Iron deficiency anemia, unspecified Category: Medical Code(s): D64.9 - Anemia, unspecified (4) CHF (congestive heart failure) Status: Chronic Qualifiers: Heart failure type: diastolic Heart failure chronicity: chronic Qualified Code(s): I50.32 - Chronic diastolic (congestive) heart failure Category: Medical Code(s): I50.9 - Heart failure, unspecified (5) History of ASCVD Status: Chronic Category: Medical Code(s): Z86.79 - Personal history of other diseases of the circulatory system (6) Hypothyroidism (acquired) Status: Chronic Category: Medical Code(s): E03.9 - Hypothyroidism, unspecified (7) Iron deficiency anemia Status: Chronic Category: Medical Code(s): D50.9 - Iron deficiency anemia, unspecified (8) Tubulovillous adenoma of colon Status: Chronic Category: Medical Code(s): D12.6 - Benign neoplasm of colon, unspec
[2021-03-16 11:30] LABS: POC Glucose,Bedside 182 (70-110)
[2021-03-16 14:35] VITALS: BMI 41.5
--- NOTE | 2021-03-16 14:57 | SW/DCPLANNER ---
PATIENT PRESENTED TO [facility] AFTER JUST RECENTLY HAVING A STAY AT [facility] AND HAD A COLECTOMY FOR A COMPLEX ADENOMA..PATIENT RESIDES AT HOME WITH SPOUSE, NOT SURE WHAT PATIENT IS GOING TO NEED AT THIS TIME BUT SOMEONE WILL BE AVAILABLE TO ASSIST WITH ANY DISCHARGE PLANNING THAT IS NECESSARY AT TIME OF DISCHARGE...
[2021-03-16 15:23] VITALS: BP 120/67; PULSE 70; RESP 22; TEMP 36.8; O2SAT 98
[2021-03-16 16:21] LABS: POC Glucose,Bedside 181 (70-110)
[2021-03-16 20:00] VITALS: BP 131/69; PULSE 71; RESP 18; TEMP 36.9; O2SAT 97
[2021-03-16 21:30] VITALS: O2SAT 97
[2021-03-17] VITALS (22 sets, daily range): BP systolic 100–179; BP diastolic 36–78; PULSE 61–72; RESP 16–20; TEMP 36.7–37.1; O2SAT 96–100; BMI 40.0
[2021-03-17 00:01] LABS: POC Glucose,Bedside 228 (70-110)
--- NOTE | 2021-03-17 06:15 | PC.NURSE ---
NO ACUTE CHANGES FROM PREVIOUS ASSESSMENT.PT HAS SLEPT WELL TONIGHT,FSBS WAS 207 THIS MORNING AND 4 UNITS HUMOLAG GIVEN,INCISION WITH STERI-STRIP INTACT,NO DRAINAGE NOTED
[2021-03-17 07:14] LABS: Hematocrit 24.7 % (37.0-47.0)
[2021-03-17 07:16] LABS: Chloride 111 mmol/L (98-107); Potassium 3.7 mmoL/L (3.5-5.1); Sodium 138 mmol/L (136-145)
[2021-03-17 07:19] LABS: Anion Gap 8.7 mEq/L (5-15); Blood Urea Nitrogen 8 mg/dl (7-17); Carbon Dioxide 22 mmol/L (22.0-30.0); Creatinine Clearance Estimated 68 mL/min (50-200); Estimated Glomerular Filt Rate 81 ml/min (>60); GFR (African American) 98 ML/MIN (>60); Glucose 173 mg/dl (74-100)
[2021-03-17 07:22] LABS: POC Glucose,Bedside 207 (70-110)
[2021-03-17 07:24] LABS: Hemoglobin 7.8 g/dL (12.2-16.2)
[2021-03-17 07:25] LABS: Calcium 6.9 mg/dl (8.4-10.2)
--- NOTE | 2021-03-17 07:56 | HMH.ACPN2 ---
Internal Medicine - PN: Subj *Date: 03/17/21 *Time: 08:39 Interval history: Patient feels better today, no abd pain, had 2 bowel movements yesterday. Exam Vital signs and Labs for Last 24 Hours: Temp Pulse Resp BP Pulse Ox 98.4 F 65 18 122/62 98 03/17/21 04:00 03/17/21 04:00 03/17/21 04:00 03/17/21 04:00 03/17/21 04:00 Laboratory Results - last 24 hr 03/16/21 06:38: Sodium 137, Potassium 3.5, Chloride 109 H, Carbon Dioxide 25, Anion Gap 6.5, BUN 6 L, Creatinine 0.70, Estimated Creat Clear 32, Estimated GFR 81, Est GFR ( Amer) 98, Glucose 119 H, Calcium 6.9 L, Total Bilirubin 0.7, AST 17 D, ALT 8 L D, Alkaline Phosphatase 103, Total Protein 5.1 L, Albumin 2.5 L D, Globulin 2.6, Albumin/Globulin Ratio 1.0 L 03/16/21 11:21: POC Glucose 182 H 03/16/21 16:13: POC Glucose 181 H 03/16/21 21:27: POC Glucose 228 H 03/17/21 06:02: POC Glucose 207 H 03/17/21 06:40: Hgb 7.8 L*, Hct 24.7 L 03/17/21 06:40: Sodium 138, Potassium 3.7, Chloride 111 H, Carbon Dioxide 22, Anion Gap 8.7, BUN 8 D, Creatinine 0.70, Estimated Creat Clear 68, Estimated GFR 81, Est GFR ( Amer) 98, Glucose 173 H, Calcium 6.9 L Vital Signs - 24 hr 03/16/21 15:23 03/16/21 20:00 03/16/21 21:30 Temperature 98.3 F 98.4 F Pulse Rate [Left Radial] 70 71 Respiratory Rate 22 18 Blood Pressure [Right Arm] 120/67 131/69 02 Sat by Pulse Oximetry 98 97 97 03/17/21 04:00 Temperature 98.4 F Pulse Rate [Left Radial] 65 Respiratory Rate 18 Blood Pressure [Right Arm] 122/62 02 Sat by Pulse Oximetry 98 I & O for Last 24 hours: Intake & Output 03/14/21 03/15/21 03/16/2103/17/21 23:59 23:59 23:59 23:59 Intake Total 1890 / 1890 1400 / 1400 Output Total 400 / 400 Balance 1490 / 1490 1400 / 1400 Weight 216 lb 213 lb 6 oz 211 lb 10.3 oz 204 lb - Constitutional no acute distress - *Routine HEENT Exam Head: Present: normocephalic Eye: Present: EOMI, PERRL ENT: Present: mucous membranes moist - *Routine Neck Exam Present: supple. Absent: lymphadenopathy - *Routine Respiratory Exam Present: CTA bilaterally - *Routine Cardiovascular Exam Present: RRR - *Routine Abdominal Exam Present: soft, normoactive bowel sounds. Absent: tenderness - *Routine Extremities Exam Present: edema (1+ bilateral legs). Absent: cyanosis, clubbing - *Routine Skin Exam Present: warm. 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 Category: Medical Code(s): K55.069 - Acute infarction of intestine, part and extent unspecified (2) S/P right colectomy Status: Acute Category: Surgical Code(s): Z90.49 - Acquired absence of other specified parts of digestive tract (3) Anemia Status: Acute Qualifiers: Anemia type: iron deficiency Iron deficiency anemia type: unspecified iron deficiency Qualified Code(s): D50.9 - Iron deficiency anemia, unspecified Category: Medical Code(s): D64.9 - Anemia, unspecified (4) CHF (congestive heart failure) Status: Chronic Qualifiers: Heart failure type: diastolic Heart failure chronicity: chronic Qualified Code(s): I50.32 - Chronic diastolic (congestive) heart failure Category: Medical Code(s): I50.9 - Heart failure, unspecified (5) History of ASCVD Status: Chronic Category: Medical Code(s): Z86.79 - Personal history of other diseases of the circulatory system (6) Hypothyroidism (acquired) Status: Chronic Category: Medical Code(s): E03.9 - Hypothyroidism, unspecified (7) Iron deficiency anemia Status: Chronic Category: Medical Code(s): D50.9 - Iron deficiency anemia, unspecified (8) Tubulovillous adenoma of colon Status: Chronic Category: Medical Code(s): D12.6 - Benign neoplasm of colon, unspecified (9) Type 2 diabetes mellitus Status: Chronic Category: Medical Code(s): E11.9 - Type 2 diabetes mellitus withou
--- NOTE | 2021-03-17 08:58 | HMH.GSPN ---
Subjective Patient reports: no new complaints, feels better, flatus, bowel movement (No bright red blood per rectum or melena) Progress Note: A&P (1) Superior mesenteric vein thrombosis Status: Acute (2) S/P right colectomy Status: Acute (3) Anemia Status: Acute (4) CHF (congestive heart failure) Status: Chronic (5) History of ASCVD Status: Chronic (6) Hypothyroidism (acquired) Status: Chronic (7) Iron deficiency anemia Status: Chronic (8) Tubulovillous adenoma of colon Status: Chronic (9) Type 2 diabetes mellitus Status: Chronic (10) CAD (coronary artery disease) Status: Chronic (11) Essential hypertension Status: Chronic (12) HLD (hyperlipidemia) Status: Chronic Assessment and Plan for All Diagnoses:: She continues to show signs of possible slow/intermittent blood loss. She may have intermittent blood loss from small mucosal ulceration noted at anastomotic site; however, she is now over 2 weeks status post right colectomy and ongoing bleeding would be atypical. There remains a possibility of as of yet undefined small bowel source. Agree with plans for transfusion today with ongoing observation Consider small bowel follow-through in near future followed by capsule endoscopy (to help rule out possible additional source) Consider tagged red blood cell scan (pending results of UGI/SBFT/capsule endoscopy) If she continues to show signs of blood loss she may require repeat colonoscopic evaluation of anastomosis Exam Vital signs and Labs for Last 24 Hours: Temp Pulse Resp BP Pulse Ox 98.0 F 70 20 179/78 H 96 03/17/21 08:00 03/17/21 08:00 03/17/21 08:00 03/17/21 08:00 03/17/21 08:00 Laboratory Results - last 24 hr 03/16/21 11:21: POC Glucose 182 H 03/16/21 16:13: POC Glucose 181 H 03/16/21 21:27: POC Glucose 228 H 03/17/21 06:02: POC Glucose 207 H 03/17/21 06:40: Hgb 7.8 L*, Hct 24.7 L 03/17/21 06:40: Sodium 138, Potassium 3.7, Chloride 111 H, Carbon Dioxide 22, Anion Gap 8.7, BUN 8 D, Creatinine 0.70, Estimated Creat Clear 68, Estimated GFR 81, Est GFR ( Amer) 98, Glucose 173 H, Calcium 6.9 L I & O for Last 24 hours: Intake & Output 03/14/21 03/15/21 03/16/21 03/17/21 11:59 11:59 11:59 11:59 Intake Total 154 / 154 2416 / 2416 960 / 960 Output Total 400 / 400 Balance -246 / -246 2416 / 2416 960 / 960 Weight 213 lb 6 oz 212 lb 1.355 oz 204 lb - Constitutional no acute distress - *Routine Respiratory Exam Absent: respiratory distress - *Routine Cardiovascular Exam Present: RRR - *Routine Abdominal Exam Present: soft
[2021-03-17 12:12] LABS: POC Glucose,Bedside 214 (70-110)
[2021-03-17 18:30] LABS: POC Glucose,Bedside 276 (70-110)
--- NOTE | 2021-03-17 20:17 | PC.NURSE ---
Report given to Jasmin Alonso RN and aware that pt has another unit of blood to be transfused. Pt is alert and oriented and stable. CB in reach. NAD. VSS
[2021-03-17 22:27] LABS: POC Glucose,Bedside 206 (70-110)
[2021-03-18 00:10] VITALS: BP 127/72; PULSE 64; RESP 16; TEMP 36.7; O2SAT 96
[2021-03-18 01:10] VITALS: BP 132/71; PULSE 65; RESP 16; TEMP 36.7; O2SAT 98
[2021-03-18 01:40] VITALS: BP 132/66; PULSE 56; RESP 16; TEMP 36.6; O2SAT 97
[2021-03-18 04:00] VITALS: BP 118/64; PULSE 69; RESP 17; TEMP 36.6; O2SAT 98
[2021-03-18 05:00] VITALS: BMI 39.9
[2021-03-18 06:46] LABS: Eosinophils # 0.5 K/mm3 (0.0-0.4); Mean Corpuscular Volume 91.9 fl (81-99); Monocytes # 0.3 K/mm3 (0.1-1.0); Red Cell Distribution Width 16.1 % (11.5-17.5)
[2021-03-18 06:48] LABS: POC Glucose,Bedside 135 (70-110)
[2021-03-18 06:50] LABS: Basophils % 0.5 % (0.1-2.0); Eosinophils % 11.1 % (0.1-12.0); Hematocrit 36.6 % (37.0-47.0); Lymphocytes # 0.7 K/mm3 (0.7-4.5); Lymphocytes % 15.7 % (10-50); Mean Corpuscular HGB Conc 31.8 g/dL (31.8-35.4); Mean Corpuscular Hemoglobin 29.3 pg (27.0-31.2); Mean Platelet Volume 7.4 fl (7.4-10.4); Monocytes % 6.2 % (1.7-9.3); Neutrophils # 3.1 K/mm3 (1.8-7.8); Neutrophils % 66.5 % (37.0-80.0); Platelet Count 319 K/mm3 (142-424); Red Blood Count 3.98 M/mm3 (4.20-5.40); White Blood Count 4.6 K/mm3 (4.8-10.8)
[2021-03-18 06:51] LABS: Hemoglobin 11.7 g/dL (12.2-16.2)
[2021-03-18 07:15] LABS: Blood Urea Nitrogen 11 mg/dl (7-17); Calcium 7.3 mg/dl (8.4-10.2); Carbon Dioxide 23 mmol/L (22.0-30.0); Chloride 112 mmol/L (98-107); Creatinine Clearance Estimated 68 mL/min (50-200); Estimated Glomerular Filt Rate 81 ml/min (>60); GFR (African American) 98 ML/MIN (>60); Glucose 144 mg/dl (74-100); Sodium 139 mmol/L (136-145)
[2021-03-18 08:00] VITALS: BP 127/62; PULSE 75; RESP 18; TEMP 36.7; O2SAT 99
--- NOTE | 2021-03-18 08:57 | HMH.GSPN ---
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 No sign of ongoing hemorrhage. Okay from surgical standpoint for discharge home with close outpatient follow-up. Consider small bowel follow-through in near future followed by capsule endoscopy (to help rule out possible additional source) Consider tagged red blood cell scan (pending results of UGI/SBFT/capsule endoscopy) If she continues to show signs of blood loss she may require repeat colonoscopic evaluation of anastomosis Exam Vital signs and Labs for Last 24 Hours: Temp Pulse Resp BP Pulse Ox 98.1 F 75 18 127/62 99 03/18/21 08:00 03/18/21 08:00 03/18/21 08:00 03/18/21 08:00 03/18/21 08:00 Laboratory Results - last 24 hr 03/17/21 06:40: Blood Type O Positive, Antibody Screen Negative, Crossmatch (AHG) See Detail 03/17/21 11:23: POC Glucose 214 H 03/17/21 18:10: POC Glucose 276 H 03/17/21 22:17: POC Glucose 206 H 03/18/21 06:33: WBC 4.6 L D, RBC 3.98 L D, Hgb 11.7 L D, Hct 36.6 L, MCV 91.9, MCH 29.3, MCHC 31.8, RDW 16.1, Plt Count 319, MPV 7.4, Neut % (Auto) 66.5, Lymph % (Auto) 15.7, [place] % (Auto) 6.2, Eos % (Auto) 11.1, Baso % (Auto) 0.5, Neut # (Auto) 3.1, Lymph # (Auto) 0.7, [place] # (Auto) 0.3, Eos # (Auto) 0.5 H, Baso # (Auto) 0.0 03/18/21 06:33: Sodium 139, Potassium 4.0, Chloride 112 H, Carbon Dioxide 23, Anion Gap 8.0, BUN 11 D, Creatinine 0.70, Estimated Creat Clear 68, Estimated GFR 81, Est GFR ( Amer) 98, Glucose 144 H, Calcium 7.3 L 03/18/21 06:33: POC Glucose 135 H I & O for Last 24 hours: Intake & Output 03/15/21 03/16/21 03/17/21 03/18/21 11:59 11:59 11:59 11:59 Intake Total 154 / 154 2416 / 2416 960 / 960 1090 / 1090 Output Total 400 / 400 Balance -246 / -246 2416 / 2416 960 / 960 1090 / 1090 Weight 213 lb 6 oz 212 lb 1.355 oz 204 lb 203 lb 7 oz - Constitutional no acute distress - *Routine Respiratory Exam Absent: respiratory distress - *Routine Cardiovascular Exam Absent: tachycardia - *Routine Abdominal Exam Present: soft
--- NOTE | 2021-03-18 09:53 | HMH.ACPN2 ---
Internal Medicine - PN: Subj *Date: 03/18/21 *Time: 09:53 Interval history: Patient feels good today, no new complaints. Exam Vital signs and Labs for Last 24 Hours: Temp Pulse Resp BP Pulse Ox 98.1 F 75 18 127/62 99 03/18/21 08:00 03/18/21 08:00 03/18/21 08:00 03/18/21 08:00 03/18/21 08:00 Laboratory Results - last 24 hr 03/17/21 06:40: Blood Type O Positive, Antibody Screen Negative, Crossmatch (AHG) See Detail 03/17/21 11:23: POC Glucose 214 H 03/17/21 18:10: POC Glucose 276 H 03/17/21 22:17: POC Glucose 206 H 03/18/21 06:33: WBC 4.6 L D, RBC 3.98 L D, Hgb 11.7 L D, Hct 36.6 L, MCV 91.9, MCH 29.3, MCHC 31.8, RDW 16.1, Plt Count 319, MPV 7.4, Neut % (Auto) 66.5, Lymph % (Auto) 15.7, [place] % (Auto) 6.2, Eos % (Auto) 11.1, Baso % (Auto) 0.5, Neut # (Auto) 3.1, Lymph # (Auto) 0.7, [place] # (Auto) 0.3, Eos # (Auto) 0.5 H, Baso # (Auto) 0.0 03/18/21 06:33: Sodium 139, Potassium 4.0, Chloride 112 H, Carbon Dioxide 23, Anion Gap 8.0, BUN 11 D, Creatinine 0.70, Estimated Creat Clear 68, Estimated GFR 81, Est GFR ( Amer) 98, Glucose 144 H, Calcium 7.3 L 03/18/21 06:33: POC Glucose 135 H I & O for Last 24 hours: Intake & Output 03/15/21 03/16/21 03/17/21 03/18/21 23:59 23:59 23:59 23:59 Intake Total 1890 / 1890 1400 / 1400 1090 / 1330 720 / 720 Output Total 400 / 400 Balance 1490 / 1490 1400 / 1400 1090 / 1330 720 / 720 Weight 213 lb 6 oz 211 lb 10.3 oz 204 lb 203 lb 7 oz - Constitutional no acute distress - *Routine HEENT Exam Head: Present: normocephalic Eye: Present: EOMI, PERRL ENT: Present: mucous membranes moist - *Routine Neck Exam Present: supple. Absent: lymphadenopathy - *Routine Respiratory Exam Present: CTA bilaterally - *Routine Cardiovascular Exam Present: RRR - *Routine Abdominal Exam Present: soft, normoactive bowel sounds. Absent: tenderness Comments: midline surgical scar healing well - *Routine Extremities Exam Absent: cyanosis, clubbing, edema - *Routine Skin Exam Present: warm. 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 Category: Medical Code(s): K55.069 - Acute infarction of intestine, part and extent unspecified (2) S/P right colectomy Status: Acute Category: Surgical Code(s): Z90.49 - Acquired absence of other specified parts of digestive tract (3) Anemia Status: Acute Qualifiers: Anemia type: iron deficiency Iron deficiency anemia type: unspecified iron deficiency Qualified Code(s): D50.9 - Iron deficiency anemia, unspecified Category: Medical Code(s): D64.9 - Anemia, unspecified (4) CHF (congestive heart failure) Status: Chronic Qualifiers: Heart failure type: diastolic Heart failure chronicity: chronic Qualified Code(s): I50.32 - Chronic diastolic (congestive) heart failure Category: Medical Code(s): I50.9 - Heart failure, unspecified (5) History of ASCVD Status: Chronic Category: Medical Code(s): Z86.79 - Personal history of other diseases of the circulatory system (6) Hypothyroidism (acquired) Status: Chronic Category: Medical Code(s): E03.9 - Hypothyroidism, unspecified (7) Iron deficiency anemia Status: Chronic Category: Medical Code(s): D50.9 - Iron deficiency anemia, unspecified (8) Tubulovillous adenoma of colon Status: Chronic Category: Medical Code(s): D12.6 - Benign neoplasm of colon, unspecified (9) Type 2 diabetes mellitus Status: Chronic Category: Medical Code(s): E11.9 - Type 2 diabetes mellitus without complications (10) CAD (coronary artery disease) Status: Chronic Qualifiers: Coronary Disease-Associated Artery/Lesion type: [place] artery [place] vs. transplanted heart: [place] heart Associated angina: with other forms of angina Qualified Code(s): I25.118 - Atherosclerotic heart disease of [place] coronary artery with other
[2021-03-18 12:55] LABS: POC Glucose,Bedside 251 (70-110)
--- NOTE | 2021-03-19 14:37 | HMH.DCSUM ---
General - General Admission date:: 03/15/21 Discharge date: 03/18/21 HPI HPI: This is a 80-year-old female who is 2 weeks status post right colectomy for complex tubulovillous adenoma. She initially progressed very well; however, on the day following discharge presented to an outside facility with blood per rectum. She was transferred to the [facility] for further evaluation management where a colonoscopy showed a 2 cm mucosal ulceration at the anastomosis. At the time of evaluation no sign of active bleeding was noted. She received packed red blood cells and was subsequently discharged after close observation. Overnight she presented to [facility] for evaluation and management of nausea and bloating . 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 She was admitted to the medical service for anticoagulation. Note: At the time of her right colectomy she was found to have increased sanguinous ooze and hemostasis was difficult. Her repeat bleeding episode from mucosal ulceration at the anastomosis (this type of mucosal ulceration is certainly not atypical 1 week status post ileocolic anastomosis) is also consistent with overall increased bleeding risk . (above as per Dr. Peters) The patient's PCP is Tao Lora in [place]. She states this morning she has passed a small amount of gas but has not had a bowel movement since yesterday. Her abdomen still feels very distended. Hospital Course Hospital Course: The patient's CT of her abdomen and pelvis showed a small thrombus in the superior mesenteric vein. It also showed a small probable seroma underlying the inferior aspect of the laparotomy. A chest x-ray showed mild basilar atelectasis. The patient was admitted and started on morphine and Zofran along with Xarelto. She was also started on IV fluids and a clear liquid diet. Dr. Peters did see the patient in consultation and felt she should be continued on anticoagulation. By 03/16/2021, she felt better. She was actually hungry but had not had any bowel movements for a few days. Her H&H did decrease slightly, therefore it was monitored. By 03/17/2021, her abdominal pain resolved and she had had 2 bowel movements. Her H&H continued to trend down, therefore she was given 2 units of packed red blood cells. Dr. Peters felt she would need a small bowel follow-through in the near future followed by capsule endoscopy. She had an excellent response to the packed red blood cells and her H&H improved. There was no signs of ongoing hemorrhage and Dr. Peters felt she could be discharged home with close outpatient follow-up. Samples of Xarelto were provided to the patient and she was discharged home and will follow up with Dr. Peters as well as her primary MD. Objective Vital signs: Temp Pulse Resp BP Pulse Ox 98.1 F 75 18 127/62 99 03/18/21 08:00 03/18/21 08:00 03/18/21 08:00 03/18/21 08:00 03/18/21 08:00 Narrative: - Constitutional no acute distress - *Routine HEENT Exam Head: Present: normocephalic Eye: Present: EOMI, PERRL ENT: Present: mucous membranes moist - *Routine Neck Exam Present: supple. Absent: lymphadenopathy - *Routine Respiratory Exam Present: CTA bilaterally - *Routine Cardiovascular Exam Present: RRR - *Routine Abdominal Exam Present: soft, normoactive bowel sounds. Absent: tenderness Comments: midline surgical scar healing well - *Routine Extremities Exam Absent: cyanosis, clubbing, edema - *Routine Skin Exam Present: warm. 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
== END 2021-03-18 13:54 | disposition home or self-care (01) | DRG 394 ==
LOC: ER 22:25 → 2ND 23:44
PROVIDERS: Admitting Provider Family Medicine; Emergency Provider Emergency Medicine; PCP Family Medicine; Visit Provider Family Medicine
DX: K55.069 Acute infarction of intestine, part and extent unspecified (principal); I50.32 Chronic diastolic (congestive) heart failure; L76.34 Postprocedural seroma of skin and subcutaneous tissue following other procedure; Z20.822 Contact with and (suspected) exposure to COVID-19; E11.51 Type 2 diabetes mellitus with diabetic peripheral angiopathy without gangrene; I11.0 Hypertensive heart disease with heart failure; D50.9 Iron deficiency anemia, unspecified; Z95.5 Presence of coronary angioplasty implant and graft; E03.9 Hypothyroidism, unspecified; I25.118 Atherosclerotic heart disease of native coronary artery with other forms of angina pectoris; Z85.850 Personal history of malignant neoplasm of thyroid; Z85.3 Personal history of malignant neoplasm of breast; Y83.8 Other surgical procedures as the cause of abnormal reaction of the patient, or of later complication, without mention of misadventure at the time of the procedure
CPT/HCPCS: 36415; 71045; 74177; 80048; 80053; 81001; 82150; 82962; 83690; 84145; 84484; 85007; 85014; 85018; 85025; 85651; 86140; 86850; 93005; 96372; 99284; J2405; P9016; Q9967; U0003

== ENCOUNTER → 2021-03-27 10:48 | Outpatient (CLI) | payer MEDICARE, SELFPAY ==
[2021-03-27 11:13] LABS: Basophils % 0.8 % (0.1-2.0); Eosinophils # 0.3 K/mm3 (0.0-0.4); Eosinophils % 7.9 % (0.1-12.0); Hematocrit 36.8 % (37.0-47.0); Hemoglobin 11.2 g/dL (12.2-16.2); Lymphocytes # 0.8 K/mm3 (0.7-4.5); Lymphocytes % 24.1 % (10-50); Mean Corpuscular HGB Conc 30.5 g/dL (31.8-35.4); Mean Corpuscular Hemoglobin 28.5 pg (27.0-31.2); Mean Corpuscular Volume 93.7 fl (81-99); Monocytes # 0.2 K/mm3 (0.1-1.0); Monocytes % 5.3 % (1.7-9.3); Neutrophils # 2.1 K/mm3 (1.8-7.8); Platelet Count 259 K/mm3 (142-424); Red Blood Count 3.93 M/mm3 (4.20-5.40); Red Cell Distribution Width 15.7 % (11.5-17.5); White Blood Count 3.3 K/mm3 (4.8-10.8)
== END ==
PROVIDERS: Visit Provider Surgery
DX: D12.6 Benign neoplasm of colon, unspecified (principal)
CPT/HCPCS: 36415; 85025

== ENCOUNTER → 2021-04-10 09:42 | Outpatient (CLI) | payer MEDICARE, SELFPAY | PROVIDERS: PCP Family Medicine; Visit Provider Surgery | DX: D12.6 Benign neoplasm of colon, unspecified (principal) ==

== ENCOUNTER → 2021-06-07 08:53 | Outpatient (CLI) | payer MEDICARE, SELFPAY ==
--- NOTE | 2021-06-07 08:54 | FL_ITS ---
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 Suture line also present in the left upper quadrant. There is a moderate amount of retained colonic feces. An oval opacity is present to the right L1 measuring 13 mm and may be due to an ingested pill. The small bowel has an unremarkable appearance. No obstructing lesions, mucosal abnormalities, or mass is apparent. The ileocolic anastomosis in the right upper quadrant is widely patent. IMPRESSION: Unremarkable small bowel series. Prior right hemicolectomy with patent ileocolic anastomosis from small bowel to the transverse colon Dictated by: Munir Harding MD 06/07/2021 12:08 Munir Harding MD in [place] 06/07/2021 12:08
== END ==
PROVIDERS: PCP Family Medicine; Visit Provider Surgery
DX: D12.6 Benign neoplasm of colon, unspecified (principal)
CPT/HCPCS: 74250

== ENCOUNTER 2021-08-17 19:56 | Emergency (ER) | payer MEDICARE, SELFPAY ==
[2021-08-17 19:57] VITALS: BP 125/50; PULSE 84; RESP 16; TEMP 36.7; O2SAT 99; BMI 39.0
[2021-08-17 20:50] LABS: Basophils # 0.1 K/mm3 (0-0.2); Basophils % 1.1 % (0.1-2.0); Eosinophils # 0.1 K/mm3 (0.0-0.4); Eosinophils % 1.8 % (0.1-12.0); Lymphocytes # 1.1 K/mm3 (0.7-4.5); Lymphocytes % 27.4 % (10-50); Mean Corpuscular HGB Conc 30.1 g/dL (31.8-35.4); Mean Corpuscular Volume 79.9 fl (81-99); Mean Platelet Volume 8.2 fl (7.4-10.4); Monocytes # 0.2 K/mm3 (0.1-1.0); Monocytes % 5.5 % (1.7-9.3); Neutrophils # 2.6 K/mm3 (1.8-7.8); Neutrophils % 64.2 % (37.0-80.0); Platelet Count 310 K/mm3 (142-424); Red Blood Count 3.32 M/mm3 (4.20-5.40); Red Cell Distribution Width 17.4 % (11.5-17.5)
[2021-08-17 20:51] LABS: Hematocrit 26.5 % (37.0-47.0)
[2021-08-17 20:57] LABS: Alanine Aminotransferase 15 U/L (12-78); Albumin Level 4.1 g/dl (3.5-5.0); Albumin/Globulin Ratio 1.4 (1.1-1.8); Alkaline Phosphatase 150 U/L (38-126); Anion Gap 11.7 mEq/L (5-15); Aspartate Amino Transferase 33 U/L (14-36); Bilirubin,Total 0.4 mg/dl (0.2-1.3); Blood Urea Nitrogen 22 mg/dl (7-17); Calcium 8.5 mg/dl (8.4-10.2); Carbon Dioxide 25 mmol/L (22.0-30.0); Chloride 105 mmol/L (98-107); Creatinine Clearance Estimated 65 mL/min (50-200); Estimated Glomerular Filt Rate 53 ml/min (>60); GFR (African American) 65 ML/MIN (>60); Glucose 306 mg/dl (74-100); Potassium 3.7 mmoL/L (3.5-5.1); Sodium 138 mmol/L (136-145); Total Protein,Serum 7.1 g/dl (6.3-8.2)
--- NOTE | 2021-08-17 22:07 | HMH.EDGENADL ---
ED Disposition Clinical Impression: Anemia Qualifiers: Anemia type: unspecified type Qualified Code(s): D64.9 - Anemia, unspecified Disposition: Home, Self-Care Condition on Discharge: Good Additional Instructions: Please follow-up with your scheduled physicians on Friday, please return to the ED with any new or worsening symptoms. Referrals: Blair Lora [Primary Care Provider] - - Critical Care Critical Care Time: No Attestation: On 08/17/21, the high probability of a clinically significant, sudden or life threatening deterioration of the following system(s) required my full and direct attention, intervention and personal management. The time I documented below is in addition to time spent performing reported procedures but includes the following listed in this critical care notation. Medical Decision Making - Medical Records Medical records reviewed: Yes: I reviewed the patient's medical records. - Cristian Inquiry Pt receiving controlled substance: No Vital Signs: 08/17/21 19:57 08/17/21 22:21 Temperature 98.0 F 98.0 F Temperature Source Oral Oral Pulse Rate 77 Pulse Rate [Left] 84 Respiratory Rate 16 18 Blood Pressure 130/52 L Blood Pressure [Right Arm] 125/50 L Blood Pressure Mean [Right Arm] 75 Blood Pressure Source Automatic Cuff Blood Pressure Position Sitting 02 Sat by Pulse Oximetry 99 Oxygen Delivery Method Room Air - Lab Data Lab Results 08/17/21 20:24: WBC 4.0 L, RBC 3.32 L, Hgb 8.0 L, Hct 26.5 L, MCV 79.9 L, MCH 24.0 L, MCHC 30.1 L, RDW 17.4, Plt Count 310, MPV 8.2, Neut % (Auto) 64.2, Lymph % (Auto) 27.4, [place] % (Auto) 5.5, Eos % (Auto) 1.8, Baso % (Auto) 1.1, Neut # (Auto) 2.6, Lymph # (Auto) 1.1, [place] # (Auto) 0.2, Eos # (Auto) 0.1, Baso # (Auto) 0.1 08/17/21 20:24: Sodium 138, Potassium 3.7, Chloride 105, Carbon Dioxide 25, Anion Gap 11.7, BUN 22 H, Creatinine 1.00, Estimated Creat Clear 65, Estimated GFR 53 L, Est GFR ( Amer) 65, Glucose 306 H, Calcium 8.5, Total Bilirubin 0.4, AST 33, ALT 15, Alkaline Phosphatase 150 H, Total Protein 7.1 D, Albumin 4.1, Globulin 3.0, Albumin/Globulin Ratio 1.4 08/17/21 20:39: Stool Occult Blood Negative 08/17/21 20:51: Blood Type O Positive, Antibody Screen Negative Result diagrams: 08/17/21 20:24 08/17/21 20:24 Medical Decision Narrative: Patient is a 81-year-old female who presents the ED today for further evaluation of anemia. Patient is well-appearing on initial evaluation, in no acute distress, and vital signs are within normal limits and stable. We will further evaluate with a CBC, CMP. No other laboratory or imaging work-up is indicated at this time. Hemoglobin found to be 8.0, this is much higher than 7.2 was found in clinic, certainly do not need to obtain any blood transfusion at this time, given that patient is otherwise well-appearing, with a negative Hemoccult test as well I have low concern for GI bleed as a source of the patient's anemia. Patient is comforted her that her hemoglobin is above 7, Dr. Peters patient surgeon was in the department as well and have discussed the case, as he is following up with her on Friday. Patient given return precautions return to the ED with any new or worsening symptoms that she has verbalized understanding with plan. Specifically we discussed if she develops any evidence of GI bleeding including melanotic stools, or bright red blood per rectum that she needs to return for further evaluation. General Adult HPI - General Chief complaint: Weakness Stated complaint: Blood count dropped Time Seen by Provider: 08/17/21 20:22 Mode of Arrival: Ambulatory Limitations: No Limitations Description of Symptoms (Recalled from ER Triage Doc. by RN): pt states that she is having weakness and that the blood work done yesterday states her hgb was under 8 and she was told by her dr to come here and get blood - History of Present Illness HPI narrative: Patient is a 81-year-old female
[2021-08-17 22:09] LABS: Occult Blood,Stool Negative (Negative)
--- NOTE | 2021-08-17 22:20 | PC.NURSE ---
spoke with daughter of pt and explained his d/c instructions personally.
[2021-08-17 22:21] VITALS: BP 130/52; PULSE 77; RESP 18; TEMP 36.7; O2SAT 98
== END 2021-08-17 22:30 | disposition home or self-care (01) ==
PROVIDERS: Emergency Provider Student in an Organized Health Care Education/Training Program; PCP Family Medicine
DX: D64.9 Anemia, unspecified (principal); I25.10 Atherosclerotic heart disease of native coronary artery without angina pectoris; E78.5 Hyperlipidemia, unspecified; I10 Essential (primary) hypertension; E03.9 Hypothyroidism, unspecified; Z96.641 Presence of right artificial hip joint; Z79.899 Other long term (current) drug therapy
CPT/HCPCS: 80053; 82272; 85025; 86850; 99283; G0328

== ENCOUNTER → 2021-10-03 11:24 | Outpatient (CLI) | payer MEDICARE, SELFPAY ==
[2021-10-03 11:54] LABS: Basophils # 0.1 K/mm3 (0-0.2); Basophils % 1.4 % (0.1-2.0); Eosinophils # 0.1 K/mm3 (0.0-0.4); Eosinophils % 2.3 % (0.1-12.0); Hematocrit 38.2 % (37.0-47.0); Hemoglobin 11.8 g/dL (12.2-16.2); Lymphocytes # 0.9 K/mm3 (0.7-4.5); Mean Corpuscular Hemoglobin 27.5 pg (27.0-31.2); Mean Corpuscular Volume 88.7 fl (81-99); Mean Platelet Volume 8.5 fl (7.4-10.4); Monocytes # 0.3 K/mm3 (0.1-1.0); Monocytes % 5.1 % (1.7-9.3); Neutrophils # 3.6 K/mm3 (1.8-7.8); Neutrophils % 73.2 % (37.0-80.0); Platelet Count 250 K/mm3 (142-424); Red Cell Distribution Width 22.1 % (11.5-17.5)
[2021-10-03 12:39] LABS: Chloride 106 mmol/L (98-107); Potassium 4.2 mmoL/L (3.5-5.1); Sodium 140 mmol/L (136-145)
[2021-10-03 12:42] LABS: Anion Gap 16.2 mEq/L (5-15); Blood Urea Nitrogen 27 mg/dl (7-17); Calcium 8.2 mg/dl (8.4-10.2); Carbon Dioxide 22 mmol/L (22.0-30.0); Estimated Glomerular Filt Rate 48 ml/min (>60); GFR (African American) 58 ML/MIN (>60); Glucose 265 mg/dl (74-100)
== END ==
PROVIDERS: Visit Provider Physician Assistant
DX: E66.9 Obesity, unspecified (principal); I25.10 Atherosclerotic heart disease of native coronary artery without angina pectoris; I50.32 Chronic diastolic (congestive) heart failure; K55.069 Acute infarction of intestine, part and extent unspecified; R60.9 Edema, unspecified; E11.9 Type 2 diabetes mellitus without complications; E78.2 Mixed hyperlipidemia; I11.0 Hypertensive heart disease with heart failure; I63.9 Cerebral infarction, unspecified; Z86.79 Personal history of other diseases of the circulatory system; Z79.4 Long term (current) use of insulin; Z68.39 Body mass index [BMI] 39.0-39.9, adult
CPT/HCPCS: 36415; 80048; 85025

== ENCOUNTER → 2022-03-16 11:04 | Outpatient (CLI) | payer MEDICARE, SELFPAY | PROVIDERS: PCP Family Medicine; Visit Provider Surgery | DX: Z01.812 Encounter for preprocedural laboratory examination (principal); Z20.822 Contact with and (suspected) exposure to COVID-19; Z13.810 Encounter for screening for upper gastrointestinal disorder; Z12.11 Encounter for screening for malignant neoplasm of colon; Z86.010 Personal history of colon polyps | CPT/HCPCS: C9803; U0003; U0005 ==

== ENCOUNTER 2022-03-19 10:22 | Day surgery (SDC) | payer MEDICARE, SELFPAY ==
[2022-03-15 10:17] VITALS: BMI 35.6
[2022-03-19] VITALS (7 sets, daily range): BP systolic 90–161; BP diastolic 44–103; PULSE 54–71; RESP 16–18; TEMP 36.5–36.7; O2SAT 91–98
[2022-03-19 10:50] LABS: POC Glucose,Bedside 210 (70-110)
--- NOTE | 2022-03-19 10:58 | P.PN_ITS ---
[facility] Anesthesia Checklist - Patient Identification Patient Identification: Arm Band - Structural Data Admitted From: Home Planned Operative Procedure/s: egd/colonoscopy Consent for Planned Operative Procedure(s) Verified: Yes Verified Documents: Surgical Consent, History and Physical - NPO Status Verified Time NPO: 00:00 - Additional verifications Anesthesia Reactions: No Hx Blood Transfusions: Yes Blood Transfusion Reaction: No - Airway Assessment C-Spine Mobility Assessed: Yes (mp2) TMJ Mobility Assessed: Yes Dentition: Partials - Neurological Assessment Level of Consciousness: Awake, Alert - Anesthesia Plan Anesthesia Risk discussed: Yes Anesthesia Plan: Verified ASA Class: III Anesthesia Type: MAC [facility] History I have reviewed the patient's past medical history: Yes Medical History: Reports:: Cancer, Congestive Heart Failure, Coronary Artery Disease, Diabetes Mellitus Type 2, Hyperlipidemia, Hypertension, MRSA, Peripheral Artery Disease, Peripheral Vascular Disease Denies:: Diabetes Mellitus Type 1, Internal Pacemaker, Seizures *Have you ever received a pneumonia vaccine?: Yes *Have you received a flu vaccine this season?: Yes Other Medical History: Reports: Anemia, Arthritis, Cataracts, Chemotherapy, Hypothyroidism, Liver Disease, Thyroid Disease. Denies: Blood Transfusion Reaction Anesthesia experience/problems:: nac Laterality Cases: Left: Mastectomy, Other, Right: Total Hip Replacement Other Surgeries: Yes: Angioplasty (2 stents), Appendectomy, Bariatric Surgery, Cardiac Catheterization, Cholecystectomy, Colonoscopy, Colon Resection, Coronary Stent, EGD, Hernia Repair, Thyroidectomy. No: Pacemaker Amputation: No Fractures: Yes (ankle, hip) - *Social History Last grade of school completed: Some college Smoking Status: Never smoker Alcohol Intake: never Substance Use Type: denies use *Occupational Status:: retired Housing: house Household Members: spouse *Travel in the last 8 weeks: None Family Hx:: Cancer, Diabetes, Heart Attack, Hyperlipidemia, Hypertension, Thyroid Disorder
--- NOTE | 2022-03-19 11:28 | P.PCN_ITS ---
- Procedure: Date: 03/19/22 Patient Date of :: 1940 Procedure Performed:: Esophagogastroduodenoscopy with biopsy Limited sigmoidoscopy (colonoscopy aborted) Indications:: Anemia History of colon polyps History of gastric sleeve History of right colectomy She is s/p right colectomy secondary to large complex polyp not amenable to endoscopic removal. She did have a delayed postsurgical (anastomosis) bleed that was treated endoscopically at the [facility]. No definitive sign of recent hemorrhage. No melena. No bright red blood per rectum. Intermittent anemia still noted on follow-up laboratory evaluation. Her most recent hemoglobin at this facility (10/2021) was improved at 11.8. She states that her last hemoglobin back home in [place] was over 12 . Performing Provider:: Aubrey Peters MD Referring Provider:: . Sedation:: Monitored anesthesia care Procedure:: After informed consent was obtained the patient was taken to the endoscopy suite. Sedation ensued after the patient was transferred to the left lateral decubitus position. Pulse, blood pressure, and oxygen saturation were monitored throughout the procedure. The endoscope was advanced beyond the duodenal bulb. Retroflexion within the gastric lumen was accomplished. The gastroscope was carefully removed. Digital rectal exam revealed no significant abnormality. The colonoscope was placed in position. Poor bowel prep immediately noted. Limited sigmoidoscopy completed. Further advancement of colonoscope deemed unwarranted. The colonoscope was carefully removed and the patient was transferred to recovery in stable condition. Please see findings and specimens below for detail. Findings:: Moderate gastritis Inflamed polypoid antral lesion Gastroesophageal junction at 38 cm Colonoscopy aborted secondary to poor bowel preparation Specimens:: Multiple biopsies of inflamed polypoid antral lesion Recommendations:: Continue proton pump inhibition Continue serial hemoglobin/hematocrit Colonoscopy in 6-12 months with extended bowel preparation warranted Complications:: Poor bowel preparation leading to aborted colonoscopy Estimated blood obtained (mL): 1
== END 2022-03-19 12:15 | disposition home or self-care (01) ==
LOC: OUTP 10:24
PROVIDERS: PCP Family Medicine; Visit Provider Surgery
PROC: 0DJ08ZZ Inspection of Upper Intestinal Tract, Via Natural or Artificial Opening Endoscopic (ICD-10-PCS; CPT 43235; principal; 2022-03-19 11:30)
PROC: 0DJD8ZZ Inspection of Lower Intestinal Tract, Via Natural or Artificial Opening Endoscopic (ICD-10-PCS; CPT 45330; 2022-03-19 11:30)
DX: D64.9 Anemia, unspecified (principal); K63.5 Polyp of colon; Z98.84 Bariatric surgery status; Z90.49 Acquired absence of other specified parts of digestive tract; Z86.010 Personal history of colon polyps; Z91.19 Patient's noncompliance with other medical treatment and regimen; E11.9 Type 2 diabetes mellitus without complications; I11.0 Hypertensive heart disease with heart failure; I50.9 Heart failure, unspecified; Z79.4 Long term (current) use of insulin; Z79.899 Other long term (current) drug therapy; Z12.11 Encounter for screening for malignant neoplasm of colon
CPT/HCPCS: 43239; G0104; 82962; 88305

== ENCOUNTER → 2022-11-20 09:37 | Outpatient (CLI) | payer MEDICARE, SELFPAY ==
--- NOTE | 2022-11-20 10:14 | US_ITS ---
FINAL REPORT CLINICAL HISTORY: h/o thyroid cancer FINDINGS: Limited sonographic images of the thyroid were obtained. The patient is status post bilateral thyroidectomy. No mass is identified. IMPRESSION: Bilateral thyroidectomy, no mass identified. Reviewed, Interpreted and Dictated by Sherman Sanchez III, MD Transcribed by Aniyah Simmons Authenticated and . [facility]
== END ==
LOC: RAD 09:39
PROVIDERS: PCP Family Medicine; Visit Provider Otolaryngology
DX: Z85.850 Personal history of malignant neoplasm of thyroid (principal)
CPT/HCPCS: 76536

== ENCOUNTER → 2022-11-20 12:33 | Outpatient (POV) | payer MEDICARE, SELFPAY | PROVIDERS: Visit Provider Specialist/Technologist | DX: Z00.00 Encounter for general adult medical examination without abnormal findings (principal) ==

== ENCOUNTER 2022-11-26 09:15 | Day surgery (SDC) | payer MEDICARE, SELFPAY ==
[2022-11-25 12:19] VITALS: BMI 43.0
[2022-11-26 09:41] VITALS: BP 165/91; PULSE 78; RESP 18; TEMP 36.3; O2SAT 97
[2022-11-26 09:45] VITALS: BP 165/91; PULSE 78; RESP 18; TEMP 36.1; O2SAT 97
[2022-11-26 10:01] LABS: POC Glucose,Bedside 166 (70-110)
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
--- NOTE | 2022-11-26 10:21 | HMH.SCOPE ---
Procedure: Date: 11/26/22 Patient Date of :: 1940 Procedure Performed:: Colonoscopy with polypectomy Indications:: History of colon polyps History of complex tubulovillous adenoma leading to right hemicolectomy. Most recent attempted colonoscopy in March 2022 was aborted due to poor bowel preparation. Performing Provider:: Aubrey Peters MD Referring Provider:: . Sedation:: Monitored anesthesia care Procedure:: After informed consent was obtained the patient was taken to the endoscopy suite. Sedation ensued after the patient was transferred to the left lateral decubitus position. Pulse, blood pressure, and oxygen saturation were monitored throughout the procedure. Digital rectal exam revealed no significant abnormality. The colonoscope was placed in position. The entire remaining colon was evaluated. The colonoscope was carefully removed and the patient was transferred to recovery in stable condition. Please see findings and specimens below for detail. Findings:: Bowel preparation poor Significant diverticulosis Anastomosis appeared normal (within visualization limitations) Polyp at 15 cm Specimens:: Polyp at 15 cm (cold snare) Recommendations:: Follow-up pathology Gastroenterology consultation warranted secondary to poor bowel preparation on multiple occasions with multiple medications Short-term repeat colonoscopy warranted (deferred to gastroenterology service) Complications:: No immediate with the exception of poor bowel preparation Estimated blood obtained (mL): 1
[2022-11-26 10:22] VITALS: O2SAT 97
[2022-11-26 11:17] VITALS: BP 105/63; PULSE 75; RESP 14; TEMP 36.6; O2SAT 98
[2022-11-26 11:27] VITALS: BP 129/81; PULSE 75; RESP 16; TEMP 36.6; O2SAT 96
[2022-11-26 11:37] VITALS: BP 129/79; PULSE 72; RESP 16; TEMP 36.6; O2SAT 97
== END 2022-11-26 11:45 | disposition home or self-care (01) ==
PROVIDERS: PCP Family Medicine; Visit Provider Surgery
PROC: 0DJD8ZZ Inspection of Lower Intestinal Tract, Via Natural or Artificial Opening Endoscopic (ICD-10-PCS; principal; 2022-11-26 11:30)
DX: Z12.11 Encounter for screening for malignant neoplasm of colon (principal); Z86.010 Personal history of colon polyps; Z91.199 Patient's noncompliance with other medical treatment and regimen due to unspecified reason; K57.30 Diverticulosis of large intestine without perforation or abscess without bleeding; K63.5 Polyp of colon; E11.9 Type 2 diabetes mellitus without complications
CPT/HCPCS: 45385; 82962; 88305; J1610; J2704

== ENCOUNTER → 2023-02-06 14:30 | Outpatient (POV) | payer MEDICARE, SELFPAY | PROVIDERS: Visit Provider Specialist/Technologist | DX: Z00.00 Encounter for general adult medical examination without abnormal findings (principal) ==

== ENCOUNTER 2023-02-20 08:42 | Day surgery (SDC) | payer MEDICARE, SELFPAY ==
[2023-02-20 09:03] VITALS: BP 166/98; PULSE 87; RESP 18; TEMP 36.2; O2SAT 97
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
[2023-02-20 09:26] LABS: POC Glucose,Bedside 174 (70-110)
[2023-02-20 09:30] VITALS: O2SAT 99
--- NOTE | 2023-02-20 09:43 | HMH.SCOPE ---
Procedure: Date: 02/20/23 Patient Date of :: 1940 Procedure Performed:: Screening colonoscopy Indications:: History of large colon polyp/mass s/p resection Performing Provider:: Alysia Mcgrath MD Referring Provider:: Gala Mcgrath APRN Sedation:: Propofol Procedure:: After placing the patient in the left lateral decubitus position, the colonoscopy was gently inserted into the rectum and under direct visualization advanced to the cecum which was identified by transillumination in the right lower quadrant, identification of the ileocecal valve, appendiceal orifice, and cecal strap. Color, texture, mucosa, and anatomy of the colon were carefully examined with the scope. Findings:: Anal canal: normal Rectum: normal Sigmoid colon: normal without polyps or inflammatory changes Descending colon: normal without polyps or inflammatory changes Splenic flexure: normal Transverse colon: normal without polyps or inflammatory changes Hepatic flexure: Intact anastomosis Ascending colon: Resected Cecum: Resected Terminal ileum: Normal Impression: Normal post R. Hemicolectomy anatomy Specimens:: None Recommendations:: Follow up examination in about FIVE years or so, sooner if clinically indicated. Complications:: None Estimated blood obtained (mL): 0 Colonoscopy Component Colonoscopy Component Was a colonoscopy performed during today's procedure?: Yes Recommended follow up colonoscopy of at least 10 years?: No If no, follow up colonoscopy recommended in ___ years?: Five Reason for not recommending >/= 10 yr follow-up interval?: History of polyp/colon mass
[2023-02-20 09:47] VITALS: BP 111/69; PULSE 77; RESP 18; TEMP 36.4; O2SAT 97
[2023-02-20 09:57] VITALS: BP 114/78; PULSE 66; RESP 18; O2SAT 95
[2023-02-20 10:06] VITALS: BP 138/82; PULSE 80; RESP 18; O2SAT 98
[2023-02-20 10:19] VITALS: BP 148/85; PULSE 67; RESP 18; O2SAT 97
== END 2023-02-20 10:30 | disposition home or self-care (01) ==
PROVIDERS: PCP Family Medicine; Visit Provider Internal Medicine Gastroenterology
PROC: 0DJD8ZZ Inspection of Lower Intestinal Tract, Via Natural or Artificial Opening Endoscopic (ICD-10-PCS; CPT 45378; principal; 2023-02-20 09:30)
DX: Z12.11 Encounter for screening for malignant neoplasm of colon (principal); Z90.49 Acquired absence of other specified parts of digestive tract; E11.9 Type 2 diabetes mellitus without complications; Z86.010 Personal history of colon polyps
CPT/HCPCS: G0105; 82962

== ENCOUNTER 2023-04-09 10:20 | Day surgery (SDC) | payer MEDICARE, SELFPAY ==
[2023-04-09] VITALS (12 sets, daily range): BP systolic 141–174; BP diastolic 78–112; PULSE 62–78; RESP 17–18; O2SAT 90–97; BMI 45.3
--- NOTE | 2023-04-09 07:05 | IR_ITS ---
APPROVED REPORT Patient Location: Outpatient PROCEDURES Left heart catheterization Left ventriculogram Selective coronary angiogram INDICATION Known coronary artery disease, Accelerated angina pectoris, Informed consent was obtained prior to the procedure. COMPLICATIONS None Estimated Blood Loss: Less than 10 ML TECHNIQUE One percent lidocaine used to anesthetize the right anterior aspect of the wrist. The right radial artery was accessed via the Seldinger technique. A 6 Sinhala sheath was placed in the right radial artery. 2.5 mg of Verapamil, 800 mcg of nitroglycerin, 1mg Lidocaine and 5000 U Heparin were given through the arterial sheath. The papa catheter was also used to perform left heart catheterization, left ventriculogram and selective coronary angiogram. At the end of the procedure the sheath was removed good hemostasis was achieved using Traclet band, patient was transferred to the postop holding area in stable condition. ANGIOGRAPHIC RESULTS The left main artery Normal The left anterior descending artery Has proximal mild vascular ectasia with wide patency followed by mild mid vessel 10 to 20% stenoses The circumflex artery Large dominant with mild to moderate proximal and mid vessel vascular ectasia accompanied by 20% stenoses. There is a stent in the mid circumflex artery which has concentric 30 to 40% stenosis. Distal to the stent there are 3 obtuse marginal arteries. The first of the obtuse marginal arteries has a ostial proximal 20 to 30% stenosis while the second 2 mm obtuse marginal artery has a 40 and 60% stenosis while the third smaller obtuse marginal artery is normal The right coronary artery Codominant and has mild vascular ectasia in the proximal and mid segment with 20 and 30% stenoses. The posterior descending artery has a mid vessel 40% stenosis The FERNANDEZ ventriculogram reveals Normal 60% The left ventricular end-diastolic pressure 15 mmHg IMPRESSION Coronary disease as described above with wide patency of the coronary arteries. Circumflex arteries are best managed medically due to the small caliber of the vessel Normal ejection fraction Borderline LVEDP PLAN 1. Continue medical management with risk factor modification and maximizing antianginals Electronically signed by : Tha Bhandari MD 04/09/2023 12:35:51
[2023-04-09 10:55] LABS: Basophils % 0.8 % (0.1-2.0); Eosinophils # 0.1 K/mm3 (0.0-0.4); Eosinophils % 1.4 % (0.1-12.0); Hematocrit 41.9 % (37.0-47.0); Hemoglobin 13.6 g/dL (12.2-16.2); Lymphocytes # 0.9 K/mm3 (0.7-4.5); Lymphocytes % 16.7 % (10-50); Mean Corpuscular HGB Conc 32.5 g/dL (31.8-35.4); Mean Corpuscular Hemoglobin 30.4 pg (27.0-31.2); Mean Corpuscular Volume 93.5 fl (81-99); Mean Platelet Volume 8.2 fl (7.4-10.4); Monocytes # 0.2 K/mm3 (0.1-1.0); Monocytes % 4.6 % (1.7-9.3); Neutrophils # 4.1 K/mm3 (1.8-7.8); Neutrophils % 76.6 % (37.0-80.0); Platelet Count 193 K/mm3 (142-424); Red Blood Count 4.49 M/mm3 (4.20-5.40); Red Cell Distribution Width 13.5 % (11.5-17.5); White Blood Count 5.4 K/mm3 (4.8-10.8)
[2023-04-09 11:08] LABS: Anion Gap 13.3 mEq/L (5-15); Blood Urea Nitrogen 17 mg/dl (7-17); Calcium 8.7 mg/dl (8.4-10.2); Carbon Dioxide 25 mmol/L (22.0-30.0); Chloride 106 mmol/L (98-107); Creatinine Clearance Estimated 33 mL/min (50-200); Estimated Glomerular Filt Rate 53 ml/min (>60); GFR (African American) 64 ML/MIN (>60); Glucose 118 mg/dl (74-100); Potassium 4.3 mmoL/L (3.5-5.1); Sodium 140 mmol/L (136-145)
== END 2023-04-09 14:51 | disposition home or self-care (01) ==
PROVIDERS: PCP Family Medicine; Visit Provider Internal Medicine
DX: I25.118 Atherosclerotic heart disease of native coronary artery with other forms of angina pectoris (principal); E11.9 Type 2 diabetes mellitus without complications; Z79.4 Long term (current) use of insulin; Z79.899 Other long term (current) drug therapy; I11.0 Hypertensive heart disease with heart failure; I50.33 Acute on chronic diastolic (congestive) heart failure; I35.0 Nonrheumatic aortic (valve) stenosis
CPT/HCPCS: 80048; 85025; 93458; 99152; C1725; C1769; J1644; Q9967

== ENCOUNTER 2023-09-01 08:01 | Outpatient (CLI) | payer MEDICARE, SELFPAY ==
--- NOTE | 2023-09-01 08:05 | CA_ITS ---
APPROVED REPORT EXAM: Comprehensive 2D, Doppler, and color-flow Echocardiogram Slitting Machine Feeder: Kiya Lainez RDCS Ht: 5 ft 1 in Wt: 249lbs BSA: 2.07 BP: 150/90 mmHg Indications: CHF, HTN, HLD 2D Dimensions LVOT 1.80 cm (M/F) 1.5-2.5 LA Volume 46.60 mL LA Volume Index 22.40 mL/m2 (M/F) 16-34 M-Mode Dimensions RVDd 2.21 cm (0.9-2.6) LA Diam 3.28 cm (1.9-4.0) LVDd 3.93 cm (3.5-5.7) LVDs 2.82 cm (3.5-5.7) IVSd 0.84 cm (0.6-1.1) PWd 0.91 cm (0.6-1.1) EF (Teich) 55.10% FS 28.20% EDV (Teich) 67.10 mL ESV (Teich) 30.10 mL LV Diastology E Decel Time 243 (160-240 msec) E/A Ratio 0.5 Aortic Valve ANANYA Index 0.45 cm2/m2 AoV Peak Troy. 261.0 (50-130 cm/s) AO Peak GR. 27.30 mmHg AO Mean GR. 13.50 (<5 mmHg) AO VTI 47.8 (18-25 cm) ANANYA (VTI) 0.95 (2.5-4.5 cm2) Mitral Valve MV E Max Troy. 81.0 (40-130 cm/s) MV A Velocity 157.0 (40-130 cm/s) E/A Ratio 0.51 MV PHT 71.0 ms Tricuspid Valve TR P. Velocity 140.00 cm/s RAP Estimate 10.00 mmHg RVSP 17.90 mmHg Left Ventricle The left ventricle is normal size. The left ventricular systolic function is normal. The left ventricular ejection fraction is within the normal range. There is increased LV wall thickness. There is normal LV segmental wall motion. Grade 2 diastolic dysfunction is present. LVEF is 55%. Right Ventricle The right ventricle is mildly dilated. The right ventricular systolic function is normal. Atria The left atrium is mildly dilated. The right atrium size is normal. There is no Doppler evidence of interatrial shunt. Aortic Valve The aortic valve is moderately thickened. ANANYA by continuity equation is 0.9 cm???. Peak velocity 2.7 m/s. Mean AV gradient 13 mmHg. Max AV gradient 27 mmHg. SVi < 35 ml/m2. DI=0.38. Findings are suggestive of possible paradoxical, low-flow, low gradient severe aortic stenosis. Mild aortic regurgitation. Mitral Valve Moderate mitral annular calcification. The mitral valve leaflets are mildly thickened. Mild mitral stenosis. Mean MV gradient 6 mmHg (HR 72 bpm). Mild mitral regurgitation. Tricuspid Valve The tricuspid valve leaflets are thin and pliable. Trace tricuspid regurgitation. RVSP is normal. Pulmonic Valve The pulmonary valve is normal in structure. Trace pulmonic regurgitation. Great Vessels The aortic root is normal in size. The ascending aorta is mildly dilated, measuring 4.1 cm in diameter. IVC is normal in size and collapses >50% with inspiration. Pericardium Trivial pericardial effusion. No echo indications of tamponade. Other Information Study Quality: Fair Conclusion Normal biventricular systolic function. Grade 2 diastolic dysfunction. Mild RV dilation. Mild LA dilation. Possible paradoxical, low-flow, low gradient severe aortic stenosis. Mild AI. Mild MS (mean MV gradient 6 mmHg at HR 72 bpm). Mild MR. Ascending aorta is mildly dilated, measuring 4.1 cm in diameter. Further evaluation of the severity of aortic stenosis is recommended with DEVIN to assess ANANYA by 2D and 3D planimetry and confirm vs. rule out severe . Electronically signed by : Rachna Linder MD 09/03/2023 11:27:26
[2023-09-01 09:11] LABS: Blood Urea Nitrogen 18 mg/dl (7-17); Estimated Glomerular Filt Rate 53 ml/min (>60); GFR (African American) 64 ML/MIN (>60)
--- NOTE | 2023-09-01 09:19 | CT_ITS ---
FINAL REPORT TECHNIQUE: Axial CT of the abdomen and pelvis, without and with IV contrast. CLINICAL HISTORY: looking at kidneys hypertension COMPARISON: 03/15/2021 FINDINGS: Abdomen: Lung bases are clear. There is cirrhosis with evidence of portal hypertension. The spleen, pancreas and adrenal glands are unremarkable. Patient is status postcholecystectomy. There are postoperative changes of gastric sleeve and in the right central abdomen. There is been interval development of a periumbilical hernia containing small bowel. There is near complete thrombosis of the SMA extending into the main portal vein which has progressed from prior exam. Precontrast imaging shows no renal stone disease. Postcontrast imaging of the kidneys demonstrates a right renal mass which is not well-characterized without delayed imaging measuring 16 mm. This is unchanged in size from prior exam and favored to represent a benign cyst. There is a smaller left renal cyst also present. No bowel obstruction or fluid collection is seen. Pelvis: The appendix is not visualized. Uterus is mildly lobular likely related to fibroids. There is mild retroperitoneal adenopathy adjacent to the aorta which is stable and likely benign or reactive. Pelvic bowel loops are unremarkable. No fluid collection or adenopathy is seen. IMPRESSION: Cirrhosis with portal hypertension. Progression of portal mesenteric venous thrombosis. Dominant right renal lesion likely representing a complex cyst. Reviewed, Interpreted and Dictated by Fred Farfan MD Transcribed by Lashaun Beatty Authenticated and [facility]
[2023-09-01] MEDS: SODIUM CHLORIDE 0.9% 10ML SYR (RAD ONLY) 10 ML IV (10:04)
[2023-09-01] MEDS: IOPAMIDOL-370 (76%);100ML BOTTLE 75 ML IV (10:05)
== END 2023-09-01 23:59 ==
LOC: RT 08:02
PROVIDERS: PCP Family Medicine; Visit Provider Physician Assistant
DX: R06.02 Shortness of breath; I20.0 Unstable angina; K55.069 Acute infarction of intestine, part and extent unspecified; R94.31 Abnormal electrocardiogram [ECG] [EKG]
CPT/HCPCS: 36415; 74178; 82565; 84520; 93306; Q9967

== ENCOUNTER 2023-09-15 07:04 | Day surgery (SDC) | payer MEDICARE, SELFPAY ==
[2023-09-12 13:10] VITALS: BMI 43.4
[2023-09-15] MEDS: LACTATED RINGERS 1000ML 1,000 ML 25 ML IV (07:45)
[2023-09-15 07:50] VITALS: BP 148/74; PULSE 74; RESP 18; TEMP 36.4; O2SAT 96
--- NOTE | 2023-09-15 08:02 | ECG_ITS ---
APPROVED REPORT Exam: Resting ECG HR:62 bpm ECG Measurements Heart Rate 62 AXES AL 183 P 46 QRSd 101 QRS -51 QT 451 T 81 QTc 457 Conclusion SINUS RHYTHM WITH SINUS ARRHYTHMIA LEFT ANTERIOR FASCICULAR BLOCK [QRS AXIS <= -45, QR IN I, RS IN II] ABNORMAL ECG UNCONFIRMED REPORT Electronically signed by : Olivier Currie MD 09/15/2023 17:57:38
[2023-09-15 08:09] LABS: Basophils % 0.5 % (0.1-2.0); Eosinophils # 0.1 K/mm3 (0.0-0.4); Eosinophils % 1.9 % (0.1-12.0); Hematocrit 40.2 % (37.0-47.0); Hemoglobin 13.5 g/dL (12.2-16.2); Lymphocytes % 17.1 % (10-50); Mean Corpuscular HGB Conc 33.4 g/dL (31.8-35.4); Mean Corpuscular Hemoglobin 31.2 pg (27.0-31.2); Mean Corpuscular Volume 93.4 fl (81-99); Mean Platelet Volume 8.8 fl (7.4-10.4); Monocytes # 0.3 K/mm3 (0.1-1.0); Monocytes % 5.6 % (1.7-9.3); Neutrophils # 4.4 K/mm3 (1.8-7.8); Neutrophils % 74.9 % (37.0-80.0); Platelet Count 170 K/mm3 (142-424); Red Blood Count 4.31 M/mm3 (4.20-5.40); Red Cell Distribution Width 14.1 % (11.5-17.5); White Blood Count 5.9 K/mm3 (4.8-10.8)
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
[2023-09-15 08:15] LABS: Activated Partial Thrombo Time 28.5 seconds (22.8-30.6); Prothrombin Time 11.8 seconds (10.1-12.5)
[2023-09-15 08:24] LABS: Chloride 106 mmol/L (98-107); Potassium 4.1 mmoL/L (3.5-5.1); Sodium 140 mmol/L (136-145)
--- NOTE | 2023-09-15 08:26 | CA_ITS ---
APPROVED REPORT EXAM: Comprehensive 2D, Doppler, and color-flow Echocardiogram Cras: Romana Nava RVT Ht: 5 ft 1 in Wt: 249lbs BSA: 2.07 BP: 150/90 mmHg Rhythm: NSR Indications: ,MS,CAD,PALPS,SOA,HTN,HLD Procedure After obtaining informed consent, patient underwent transesophageal echo in the [facility]. Type of Sedation : MAC Sedation was administered by Boris HarrisonNWillis Sedation start time: 10:05 Case end Time: 10:20 Sedation was achieved intravenously with: Propofol (300) Transesophageal probe was inserted and advanced into esophagus without difficulty by Dr. Golden Linder. The DEVIN was performed without complications. Throughout the procedure, the blood pressure, pulse oximetry, cardiac rhythm, and rate were monitored. The patient tolerated the procedure without adverse effects. Recovery from conscious sedation was uneventful and vital signs were stable. Left Ventricle The left ventricle is normal size. The left ventricular systolic function is normal. The left ventricular ejection fraction is within the normal range. There is increased LV wall thickness. There is normal LV segmental wall motion. LVEF is 55%. Right Ventricle The right ventricle is mildly dilated. The right ventricular systolic function is normal. Atria The left atrium size is normal. There is no thrombus suspected in the left atrium or the left atrial appendage. The right atrium size is normal. Interatrial septum is intact without evidence of ASD or PFO. Aortic Valve The aortic valve is mildly thickened. Moderate valvular aortic stenosis. Aortic valve area by 2D planimetry is 1.4 cm2. Estimation of gradients and peak velocity is not performed in the study as the probe is not advanced into the stomach (due to history of sleeve gastrectomy). Trace central aortic regurgitation. Mitral Valve Moderate mitral annular calcification. The mitral valve leaflets are mildly thickened. No evidence of mitral stenosis. Mean MV gradient 4 mmHg at HR 75 bpm (which may be underestimated in the setting of sedation). MVA by PHT method is 2.9 cm???. Trace mitral regurgitation. Tricuspid Valve The tricuspid valve leaflets are thin and pliable. Mild tricuspid regurgitation. RVSP is normal. Pulmonic Valve The pulmonary valve is normal in structure. Trace pulmonic regurgitation. Great Vessels The aortic root is normal in size. The ascending aorta is mildly dilated, measuring 3.8 cm in diameter. Pericardium There is no pericardial effusion. Other Information Study Quality: Fair Conclusion Normal biventricular systolic function. Mild RV dilation. No evidence of mitral stenosis. Mean MV gradient 4 mmHg at HR 75 bpm (which may be underestimated in the setting of sedation). MVA by PHT method is 2.9 cm???. Moderate valvular aortic stenosis. Aortic valve area by 2D planimetry is 1.4 cm2. Estimation of gradients and peak velocity is not performed in the study as the probe is not advanced into the stomach (due to history of sleeve gastrectomy). Ascending aorta is mildly dilated, measuring 3.8 cm in diameter. Electronically signed by : Rachna Linder MD 09/15/2023 13:05:15
[2023-09-15 08:27] LABS: Blood Urea Nitrogen 20 mg/dl (7-17); Creatinine Clearance Estimated 30 mL/min (50-200); Estimated Glomerular Filt Rate 48 ml/min (>60); GFR (African American) 58 ML/MIN (>60)
[2023-09-15 08:28] LABS: Anion Gap 11.1 mEq/L (5-15); Calcium 8.7 mg/dl (8.4-10.2); Carbon Dioxide 27 mmol/L (22.0-30.0); Glucose 172 mg/dl (74-100)
[2023-09-15 10:00] VITALS: O2SAT 96
[2023-09-15 10:25] VITALS: BP 107/58; PULSE 76; RESP 16; TEMP 36.8; O2SAT 99
[2023-09-15 10:35] VITALS: BP 98/61; PULSE 72; RESP 16; O2SAT 98
[2023-09-15 10:45] VITALS: BP 107/58; PULSE 72; RESP 16; O2SAT 97
[2023-09-15 10:50] VITALS: BP 121/70; PULSE 70; RESP 16; O2SAT 98
[2023-09-15 10:59] LABS: POC Glucose,Bedside 158 (70-110)
== END 2023-09-15 10:56 | disposition home or self-care (01) ==
PROVIDERS: PCP Family Medicine; Visit Provider Internal Medicine
DX: I35.0 Nonrheumatic aortic (valve) stenosis (principal); E11.9 Type 2 diabetes mellitus without complications; Z79.4 Long term (current) use of insulin; R06.02 Shortness of breath; Z79.899 Other long term (current) drug therapy; I10 Essential (primary) hypertension; I25.10 Atherosclerotic heart disease of native coronary artery without angina pectoris
CPT/HCPCS: 80048; 82962; 85025; 85610; 85730; 93005; 93270; 93312; 93319

== ENCOUNTER 2023-12-18 09:20 | Outpatient (CLI) | payer MEDICARE, SELFPAY ==
--- NOTE | 2023-12-18 09:27 | US_ITS ---
FINAL REPORT TECHNIQUE: Sonographic images of the thyroid were obtained. CLINICAL HISTORY: recheck of thyroid COMPARISON: 11/20/2022 FINDINGS: THYROID ULTRASOUND Limited sonographic images of the thyroid were obtained. The patient is status post bilateral thyroidectomy. No masses identified. IMPRESSION: Status post bilateral thyroidectomy with no mass identified. Reviewed, Interpreted and Dictated by Sherman Sanchez III, MD Transcribed by Greta Dawson Authenticated and [facility]
== END 2023-12-18 23:59 | disposition home or self-care (01) ==
LOC: RAD 09:21
PROVIDERS: PCP Family Medicine; Visit Provider Nurse Practitioner
DX: Z85.850 Personal history of malignant neoplasm of thyroid (principal); E89.0 Postprocedural hypothyroidism
CPT/HCPCS: 76536

== ENCOUNTER 2023-12-31 13:59 | Outpatient (CLI) | payer MEDICARE, SELFPAY ==
[2023-12-31 15:24] LABS: Basophils # 0.1 K/mm3 (0-0.2); Basophils % 0.8 % (0.1-2.0); Eosinophils # 0.2 K/mm3 (0.0-0.4); Eosinophils % 2.7 % (0.1-12.0); Hematocrit 40.1 % (37.0-47.0); Lymphocytes # 1.1 K/mm3 (0.7-4.5); Lymphocytes % 19.8 % (10-50); Mean Corpuscular HGB Conc 32.4 g/dL (31.8-35.4); Mean Corpuscular Hemoglobin 31.4 pg (27.0-31.2); Mean Corpuscular Volume 96.9 fl (81-99); Mean Platelet Volume 9.1 fl (7.4-10.4); Monocytes # 0.3 K/mm3 (0.1-1.0); Monocytes % 5.6 % (1.7-9.3); Neutrophils # 4.1 K/mm3 (1.8-7.8); Neutrophils % 71.1 % (37.0-80.0); Platelet Count 196 K/mm3 (142-424); Red Blood Count 4.14 M/mm3 (4.20-5.40); Red Cell Distribution Width 13.9 % (11.5-17.5); White Blood Count 5.8 K/mm3 (4.8-10.8)
[2023-12-31 15:35] LABS: Alanine Aminotransferase 21 U/L (12-78); Aspartate Amino Transferase 31 U/L (14-36); Blood Urea Nitrogen 20 mg/dl (7-17); Carbon Dioxide 22 mmol/L (22.0-30.0); Cholesterol 196 mg/dl (140-200); Estimated Glomerular Filt Rate 53 ml/min (>60); GFR (African American) 64 ML/MIN (>60); Triglycerides 116 mg/dl (30-150); VLDL Cholesterol 23 mg/dL (0-40)
[2023-12-31 15:46] LABS: Direct LDL Cholesterol 123.39 mg/dL (100-129)
[2023-12-31 15:50] LABS: Free T4 (Free Thyroxine) 1.12 ng/dl (0.78-2.19)
[2023-12-31 16:52] LABS: Albumin Level 3.5 g/dl (3.5-5.0); Alkaline Phosphatase 146 U/L (38-126); Anion Gap 13.3 mEq/L (5-15); Calcium 8.8 mg/dl (8.4-10.2); Chloride 110 mmol/L (98-107); Chol/HDL Ratio 3.8 (1-3.5); Glucose 238 mg/dl (74-100); HDL Cholesterol 51 mg/dl (40-60); Magnesium 1.7 mg/dl (1.6-2.3); Potassium 4.3 mmoL/L (3.5-5.1); Sodium 141 mmol/L (136-145); Total Protein,Serum 6.7 g/dl (6.3-8.2)
[2023-12-31 17:36] LABS: Bilirubin,Direct 0.3 mg/dl (0.0-0.4); Bilirubin,Indirect 0.2 mg/dL (0.0-0.9)
[2023-12-31 17:38] LABS: Bilirubin,Total 0.5 mg/dl (0.2-1.3); Bilirubin,Unconjugated 0.2 mg/dL (0.0-1.1)
== END 2023-12-31 23:59 | disposition home or self-care (01) ==
LOC: LAB 14:00
PROVIDERS: PCP Family Medicine; Visit Provider Physician Assistant
DX: R60.0 Localized edema (principal); I11.0 Hypertensive heart disease with heart failure; I25.10 Atherosclerotic heart disease of native coronary artery without angina pectoris; I35.0 Nonrheumatic aortic (valve) stenosis; I50.32 Chronic diastolic (congestive) heart failure; E78.2 Mixed hyperlipidemia; E11.69 Type 2 diabetes mellitus with other specified complication; E66.9 Obesity, unspecified; Z68.42 Body mass index [BMI] 45.0-49.9, adult; Z79.4 Long term (current) use of insulin
CPT/HCPCS: 36415; 80048; 80061; 80076; 83735; 84439; 84443; 85025

== ENCOUNTER 2024-04-01 10:19 | Outpatient (CLI) | payer MEDICARE, SELFPAY ==
--- NOTE | 2024-04-01 10:24 | CA_ITS ---
APPROVED REPORT EXAM: Comprehensive 2D, Doppler, and color-flow Echocardiogram Vacuum Pan Tender: Mariia Jolly CRT Ht: 5 ft 1 in Wt: 252lbs BSA: 2.08 BP: 174/100 mmHg Indications: , HTN, HLD, DM, CHF, CAD, L MASTECTOMY, STENTS Echo Enhancing Agent Indication: Endocardial border delineation Agent(s) / Amount(s) Used: Definity 2 cc 2D Dimensions Left Atrium 4.12 cm LVEF (Hensley's) 53.60 % LVOT 1.22 cm (M/F) 1.5-2.5 LV Volume 53.00 mL LA Volume 20.00 mL LA Volume Index 9.60 mL/m2 (M/F) 16-34 EF AP4 62.60 % EF AP2 39.9 % EF BP 53.6 % GL Strain -12.4 % M-Mode Dimensions RVDd 2.04 cm (0.9-2.6) LVDd 3.93 cm (3.5-5.7) Ao Diam 4.03 cm (2.0-3.7) LVDs 2.65 cm (3.5-5.7) IVSd 1.57 cm (0.6-1.1) PWd 1.14 cm (0.6-1.1) EF (Teich) 61.50% FS 32.60% EDV (Teich) 67.10 mL ESV (Teich) 25.80 mL LV Diastology E Decel Time 82 (160-240 msec) E/A Ratio 0.45 MED E' 4.7 (>= 7 cm/sec) MED A' 9.70 cm/s E'/MED E' Ratio 16.74 (<= 14) LAT E' 6.2 (>= 10 cm/sec) LAT A' 12.60 cm/s E/LAT E' Ratio 12.69 (<= 14) Aortic Valve LVOT Max 160.0 (70-110 cm/s) ANANYA Index 0.40 cm2/m2 LVOT VTI 27.04 cm AoV Peak Troy. 227.0 (50-130 cm/s) AI PHT 326.00 ms AO Peak GR. 20.20 mmHg AO Mean GR. 11.90 (<5 mmHg) AO VTI 37.8 (18-25 cm) ANANYA (VTI) 0.84 (2.5-4.5 cm2) Mitral Valve MV E Max Troy. 79.0 (40-130 cm/s) MV A Velocity 176.0 (40-130 cm/s) E/A Ratio 0.45 MV Decel. Time 82 (160-240 ms) Tricuspid Valve TR P. Velocity 206.00 cm/s RAP Estimate 10.00 mmHg RVSP 27.10 mmHg Left Ventricle The left ventricle is normal size. The left ventricular systolic function is normal. The left ventricular ejection fraction is within the normal range. There is increased LV wall thickness. There is normal LV segmental wall motion. Transmitral Doppler flow pattern suggests impaired LV relaxation. LVEF is 55%. Right Ventricle Right ventricle is mildly dilated. The right ventricular systolic function is normal. Atria Left atrium is mildly dilated. The right atrium size is normal. Aortic Valve The aortic valve leaflets are moderately thickened. Moderate aortic stenosis. ANANYA by continuity equation is 1.2 cm2. DI=0.50. Peak transaortic velocity is 2.5 m/s. Mean AV gradient 15 mmHg. Max AV gradient 25 mmHg. Mild aortic regurgitation. Mitral Valve Moderate mitral annular calcification. The mitral valve leaflets are calcified. Mild mitral stenosis. Mean MV gradient is 5 mmHg (HR 83 bpm). Mild mitral regurgitation. Tricuspid Valve The tricuspid valve leaflets are thin and pliable. Mild tricuspid regurgitation. RVSP is 20-25 mmHg. Pulmonic Valve The pulmonary valve is normal in structure. Trace pulmonic regurgitation. Great Vessels The aortic root is normal in size. The ascending aorta is not well-visualized. IVC is normal in size and collapses >50% with inspiration. Pericardium There is no pericardial effusion. Other Information Study Quality: Technically Difficult Conclusion Technically difficult study due to poor acoustic windows. Normal biventricular systolic function. Mild RV dilation. Mild LA dilation. Moderate (ANANYA by continuity equation is 1.2 cm2. DI=0.50. Peak transaortic velocity is 2.5 m/s. Mean AV gradient 15 mmHg. Max AV gradient 25 mmHg). Mild MS (mean MV gradient is 5 mmHg (HR 83 bpm). Mild AI, mild MR, mild TR. Compared to prior DEVIN from 09/2023, the severity of the aortic and mitral valvulopathies are overall unchanged. Electronically signed by : Rachna Linder MD 04/01/2024 12:24:00
[2024-04-01] MEDS: DEFINITY US ECHO CONTRAST 2ML INJ 2 MG IV (11:44)
== END 2024-04-01 23:59 | disposition home or self-care (01) ==
LOC: RT 10:20
PROVIDERS: PCP Family Medicine; Visit Provider Physician Assistant
DX: R06.02 Shortness of breath (principal); I35.0 Nonrheumatic aortic (valve) stenosis
CPT/HCPCS: 93306; Q9957

== ENCOUNTER 2024-08-31 13:24 | Outpatient (CLI) | payer MEDICARE, SELFPAY ==
--- NOTE | 2024-08-31 13:30 | CA_ITS ---
APPROVED REPORT EXAM: Comprehensive 2D, Doppler, and color-flow Echocardiogram Conditioning Yard Supervisor: Mariia Jolly CRT Ht: 5 ft 1 in Wt: 239lbs BSA: 2.04 BP: 135/72 mmHg Indications: MOD , MILD MS, CAD, HTN, STENTS, HLD, L MASTECTOMY 2D Dimensions LA Volume 46.20 mL LA Volume Index 22.10 mL/m2 (M/F) 16-34 M-Mode Dimensions RVDd 2.97 cm (0.9-2.6) LA Diam 3.76 cm (1.9-4.0) LVDd 3.57 cm (3.5-5.7) LVDs 2.25 cm (3.5-5.7) IVSd 2.04 cm (0.6-1.1) PWd 1.06 cm (0.6-1.1) EF (Teich) 67.90% FS 37.00% EDV (Teich) 53.30 mL TAPSE 2.13 (<1.7) ESV (Teich) 17.10 mL LV Diastology E Decel Time 483 (160-240 msec) E/A Ratio 0.48 MED A' 10.60 cm/s LAT A' 10.50 cm/s Aortic Valve ANANYA Index 0.44 cm2/m2 AoV Peak Troy. 327.0 (50-130 cm/s) AI PHT 431.00 ms AO Peak GR. 42.90 mmHg AO Mean GR. 26.60 (<5 mmHg) AO VTI 73.2 (18-25 cm) ANANYA (VTI) 0.91 (2.5-4.5 cm2) Mitral Valve MV A Velocity 127.0 (40-130 cm/s) E/A Ratio 0.48 MV Mean Gr. 4.70 (<2mmHg) MV PHT 90.0 ms Pulmonary Valve PV Peak Velocity 107.0 (50-150 cm/s) Tricuspid Valve TR P. Velocity 219.00 cm/s RAP Estimate 10.00 mmHg RVSP 29.10 mmHg Left Ventricle The left ventricle is normal size. The left ventricular systolic function is normal. The left ventricular ejection fraction is within the normal range. There is increased LV wall thickness. The septum is asynchronous. Diastolic function is indeterminate in the setting of moderate MAC. LVEF is 55%. Right Ventricle The right ventricle is mildly dilated. The right ventricular systolic function is normal. Atria The left atrium is moderately dilated. The right atrium size is normal. There is no Doppler evidence of interatrial shunt. Aortic Valve The aortic valve is moderately thickened. Moderate aortic stenosis. Peak velocity 3.5 m/s. Mean AV gradient 27 mmHg. Max AV gradient 45 mmHg. ANANYA by continuity equation is 1.1 cm???. Mild aortic regurgitation. Mitral Valve Moderate mitral annular calcification. The mitral valve leaflets are mildly thickened. No evidence of mitral valve stenosis. Trace mitral regurgitation. Tricuspid Valve The tricuspid valve leaflets are thin and pliable. Trace tricuspid regurgitation. There is insufficient TR jet to estimate RVSP. Pulmonic Valve The pulmonary valve is normal in structure. Trace pulmonic regurgitation. Great Vessels The aortic root is normal in size. The ascending aorta is mildly dilated, measuring 3.9 cm in diameter. IVC is normal in size and collapses >50% with inspiration. Pericardium There is no pericardial effusion. Other Information Study Quality: Fair Conclusion Normal biventricular systolic function. Asynchronous septum. Mild RV dilation. Moderate LA dilation. Moderate (peak velocity 3.5 m/s. Mean AV gradient 27 mmHg. Max AV gradient 45 mmHg. ANANYA by continuity equation is 1.1 cm???). Mild AI. The ascending aorta is mildly dilated, measuring 3.9 cm in diameter. Compared to prior study from 09/01/2023, there are no significant changes. The ANANYA is slightly smaller, but the overall classification of severity of is unchanged. Serial TTE's are suggested. Electronically signed by : Rachna Linder MD 09/02/2024 11:13:15
[2024-08-31 14:46] LABS: Basophils # 0.1 K/mm3 (0-0.2); Basophils % 1.5 % (0.1-2.0); Eosinophils # 0.1 K/mm3 (0.0-0.4); Hematocrit 34.1 % (37.0-47.0); Hemoglobin 10.9 g/dL (12.2-16.2); Lymphocytes # 1.1 K/mm3 (0.7-4.5); Lymphocytes % 23.3 % (10-50); Mean Corpuscular Hemoglobin 28.8 pg (27.0-31.2); Mean Platelet Volume 10.6 fl (7.4-10.4); Monocytes # 0.3 K/mm3 (0.1-1.0); Monocytes % 6.2 % (1.7-9.3); Neutrophils # 3.1 K/mm3 (1.8-7.8); Neutrophils % 65.4 % (37.0-80.0); Platelet Count 197 K/mm3 (142-424); Red Blood Count 3.79 M/mm3 (4.20-5.40); Red Cell Distribution Width 14.3 % (11.5-17.5); White Blood Count 4.7 K/mm3 (4.8-10.8)
[2024-08-31 15:11] LABS: Alanine Aminotransferase 16 U/L (12-78); Albumin Level 3.6 g/dl (3.5-5.0); Alkaline Phosphatase 131 U/L (38-126); Anion Gap 13.7 mEq/L (5-15); Aspartate Amino Transferase 31 U/L (14-36); Bilirubin,Direct 0.3 mg/dl (0.0-0.4); Bilirubin,Total 0.3 mg/dl (0.2-1.3); Blood Urea Nitrogen 16 mg/dl (7-17); Calcium 8.5 mg/dl (8.4-10.2); Carbon Dioxide 22 mmol/L (22.0-30.0); Chloride 112 mmol/L (98-107); Chol/HDL Ratio 3.8 (1-3.5); Cholesterol 171 mg/dl (140-200); Estimated Glomerular Filt Rate 53 ml/min (>60); GFR (African American) 64 ML/MIN (>60); Glucose 155 mg/dl (74-100); HDL Cholesterol 45 mg/dl (40-60); Potassium 4.7 mmoL/L (3.5-5.1); Sodium 143 mmol/L (136-145); Total Protein,Serum 6.3 g/dl (6.3-8.2); Triglycerides 102 mg/dl (30-150); VLDL Cholesterol 20 mg/dL (0-40)
[2024-08-31 15:22] LABS: Direct LDL Cholesterol 107.19 mg/dL (100-129)
[2024-08-31 15:24] LABS: Free T4 (Free Thyroxine) 1.42 ng/dl (0.78-2.19)
[2024-08-31 15:40] LABS: Thyroid Stimulating Hormone 5.81 uIU/mL (0.465-4.68)
== END 2024-08-31 23:59 | disposition home or self-care (01) ==
PROVIDERS: PCP Family Medicine; Visit Provider Physician Assistant
DX: I35.2 Nonrheumatic aortic (valve) stenosis with insufficiency (principal); I51.7 Cardiomegaly; I25.110 Atherosclerotic heart disease of native coronary artery with unstable angina pectoris; R06.09 Other forms of dyspnea; E11.9 Type 2 diabetes mellitus without complications; E78.5 Hyperlipidemia, unspecified; E03.9 Hypothyroidism, unspecified; R79.89 Other specified abnormal findings of blood chemistry
CPT/HCPCS: 36415; 80048; 80061; 80076; 84439; 84443; 85025; 93306

== ENCOUNTER 2024-09-08 08:45 | Day surgery (SDC) | payer MEDICARE, SELFPAY ==
[2024-09-08] VITALS (21 sets, daily range): BP systolic 140–166; BP diastolic 64–92; PULSE 53–75; RESP 15–18; TEMP 36.8–36.9; O2SAT 93–99; BMI 45.1
--- NOTE | 2024-09-08 07:16 | IR_ITS ---
APPROVED REPORT Patient Location: Outpatient PROCEDURES Selective coronary angiogram INDICATION Angina pectoris, Known coronary artery disease Informed consent was obtained prior to the procedure. COMPLICATIONS NONE Estimated Blood Loss: LESS THAN 10 ML TECHNIQUE One percent lidocaine was used to anesthetize the right groin. The right femoral artery was accessed via the Seldinger technique. A 4-Lithuanian sheath was placed in the right femoral artery. The JL-4 and JR-4 catheter was also used to perform selective coronary angiogram. At the end of the procedure the patient was transferred to the post-op holding area in stable condition for arterial sheath removal. ANGIOGRAPHIC RESULTS The left main artery Normal The left anterior descending artery Has a stent in the proximal segment which is widely patent free of in-stent restenosis with excellent proximal distal transitioning The circumflex artery Is nondominant and has a stent in the mid segment which has concentric 30% in-stent restenosis with excellent proximal distal transitioning The right coronary artery Is dominant and has proximal 20% stenosis with distal 30 and 40% stenosis The FERNANDEZ ventriculogram reveals Not performed The left ventricular end-diastolic pressure Not measured IMPRESSION Widely patent coronary arteries Purported severe aortic stenosis which is the likely etiology for patient's symptoms PLAN 1. Evaluate for TAVR consideration 2. Risk factor modification Electronically signed by : Tha Bhandari MD 09/08/2024 15:02:02
[2024-09-08 09:17] LABS: Basophils # 0.1 K/mm3 (0-0.2); Basophils % 0.9 % (0.1-2.0); Eosinophils # 0.1 K/mm3 (0.0-0.4); Eosinophils % 1.9 % (0.1-12.0); Hematocrit 34.2 % (37.0-47.0); Lymphocytes # 0.9 K/mm3 (0.7-4.5); Lymphocytes % 15.1 % (10-50); Mean Corpuscular HGB Conc 32.2 g/dL (31.8-35.4); Mean Corpuscular Hemoglobin 29.2 pg (27.0-31.2); Mean Corpuscular Volume 90.7 fl (81-99); Mean Platelet Volume 10.6 fl (7.4-10.4); Monocytes # 0.4 K/mm3 (0.1-1.0); Neutrophils # 4.5 K/mm3 (1.8-7.8); Neutrophils % 75.8 % (37.0-80.0); Platelet Count 198 K/mm3 (142-424); Red Blood Count 3.77 M/mm3 (4.20-5.40); Red Cell Distribution Width 14.6 % (11.5-17.5); White Blood Count 5.9 K/mm3 (4.8-10.8)
[2024-09-08 09:25] LABS: Chloride 109 mmol/L (98-107); Potassium 4.1 mmoL/L (3.5-5.1); Sodium 140 mmol/L (136-145)
[2024-09-08 09:28] LABS: Anion Gap 12.1 mEq/L (5-15); Blood Urea Nitrogen 14 mg/dl (7-17); Calcium 8.6 mg/dl (8.4-10.2); Carbon Dioxide 23 mmol/L (22.0-30.0); Creatinine Clearance Estimated 33 mL/min (50-200); Estimated Glomerular Filt Rate 60 ml/min (>60); GFR (African American) 73 ML/MIN (>60); Glucose 222 mg/dl (74-100)
[2024-09-08] MEDS: VERAPAMIL 2.5MG/ML 2ML VIAL 2.5 MG IV (13:04)
[2024-09-08] MEDS: LIDOCAINE 1% 10ML MDV 20 ML IJ (13:04)
[2024-09-08] MEDS: HEPARIN 1,000 UNITS/ML 10ML VIAL (CATH LAB) 10000 UNIT IV (13:05)
[2024-09-08] MEDS: HEPARIN 1,000 UNITS/500ML NS (CATH LAB) 3000 UNIT IV (13:06)
[2024-09-08] MEDS: 0.9 % SODIUM CHLORIDE 500 ML 25 ML IV (13:06)
[2024-09-08] MEDS: NITROGLYCERIN 800MCG/8ML SYR (CATH LAB) 800 MCG IA (13:06)
[2024-09-08] MEDS: FENTANYL 100MCG/2ML VIAL 50 MCG IV (13:28)
[2024-09-08] MEDS: MIDAZOLAM HCL 1MG/ML 5ML VIAL 1 MG IV (13:28)
[2024-09-08] MEDS: IOPAMIDOL-370 (76%);100ML BOTTLE 50 ML IV (13:51)
[2024-09-08] MEDS: HYDROCODONE/APAP 5/325 MG TABLET 1 TAB PO (14:41)
== END 2024-09-08 17:00 | disposition home or self-care (01) ==
PROVIDERS: PCP Family Medicine; Visit Provider Internal Medicine
DX: I25.110 Atherosclerotic heart disease of native coronary artery with unstable angina pectoris (principal); R06.09 Other forms of dyspnea; Z79.899 Other long term (current) drug therapy; Z79.4 Long term (current) use of insulin; E11.9 Type 2 diabetes mellitus without complications; I11.0 Hypertensive heart disease with heart failure; I50.32 Chronic diastolic (congestive) heart failure
CPT/HCPCS: 80048; 85025; 93454; 99152; 99153; C1725; C1769; J1644; J2250; J3010; Q9967

== ENCOUNTER 2024-10-26 13:36 | Outpatient (CLI) | payer MEDICARE, SELFPAY ==
[2024-10-26 15:02] LABS: Anion Gap 12.9 mEq/L (5-15); Blood Urea Nitrogen 21 mg/dl (7-17); Calcium 9.4 mg/dl (8.4-10.2); Carbon Dioxide 18 mmol/L (22.0-30.0); Chloride 114 mmol/L (98-107); Estimated Glomerular Filt Rate 48 ml/min (>60); GFR (African American) 58 ML/MIN (>60); Glucose 230 mg/dl (74-100); Potassium 4.9 mmoL/L (3.5-5.1); Sodium 140 mmol/L (136-145)
== END 2024-10-26 23:59 | disposition home or self-care (01) ==
LOC: LAB 13:37
PROVIDERS: PCP Family Medicine; Visit Provider Physician Assistant
DX: R06.09 Other forms of dyspnea (principal); I20.0 Unstable angina; K55.069 Acute infarction of intestine, part and extent unspecified; E11.69 Type 2 diabetes mellitus with other specified complication; E78.2 Mixed hyperlipidemia; I50.32 Chronic diastolic (congestive) heart failure
CPT/HCPCS: 36415; 80048

== ENCOUNTER 2024-12-09 12:07 | Outpatient (CLI) | payer MEDICARE, SELFPAY ==
--- OUTSIDE RECORDS SUMMARY | 2024-12-09 12:10 | XMS_ITS | Data Portability ---
Author Organization [facility] & ASHOK Wu ADMIN Address [address] [place] [address] Care Team Providers Care Product Test Engineer Name Role Phone YOUNG DANIEL Primary Care Provider JEANNE Dash Human Resources Consultant Assessment No assessment recorded. Plan of Treatment Reminders Order Date Submit Date Provider Last Modified By Organization Details Last Modified Time Details Appointments None recorded. Lab None recorded. Referral None recorded. Procedures None recorded. Surgeries None recorded. Imaging None recorded. Medication Orders Euflexxa 10 mg/mL (mw 2.4-3.6 million) intra-artic ular syringe [email or web address], [address], 3 15:58:16 Euflexxa 10 mg/mL (mw 2.4-3.6 million) intra-artic ular syringe [address]22 [email or web address], [address], 3 15:27:01 Euflexxa 10 mg/mL (mw 2.4-3.6 million) intra-artic ular syringe [email or web address], [address], 3 13:17:14 Kenalog 10 mg/mL suspension for injection [email or web address] [place] [address], [address], 3 20:48:30 bupivacaine (PF) 0.5 % (5 mg/mL) injection solution [email or web address] [place] [address], [address], 3 20:48:30 Kenalog 10 mg/mL suspension for injection [email or web address], [address], 3 07:45:14 bupivacaine (PF) 0.25 % (2.5 mg/mL) injection solution [email or web address], [address], 3 07:45:14 Patient TargetsNo targets recorded. Patient InstructionsNo instructions recorded. Reason for Referral None Reported. Procedures Surgical History Date Name Laterality Status Provider Name and Address Organization Details Recorded Time thyroidectomy completed Montse PULIDO [facility] 05/09/2022 13:25:22 Mastectomy completed Montse Franz PNT [facility] 05/09/2022 13:25:47 hernia repair completed Montse PULIDO [facility] 05/09/2022 13:26:04 open reduction of fracture of ankle with internal fixation completed Montse PULIDO [facility] 05/09/2022 13:27:09 cholecystectomy completed Montse PULIDO [facility] 05/09/2022 13:27:28 laparoscopic sleeve gastrectomy completed Montse PULIDO [facility] 05/09/2022 13:27:48 Imaging Results None recorded. Procedure Notes None recorded. Medical Equipment None Reported. Allergies No known drug allergies Medications Name Sig Start Date Stop Date Status Note LastModified by Organization Details LastModified Time latanoprost 0.005 % eye drops INSTILL ONE (1) DROP INTO BOTH EYES NIGHTLY active Not Available Not Available No t Available atorvastati n 80 mg tablet TAKE ONE (1) TABLET BY MOUTH EVERY DAY active Not Available Not Available No t Available carvedilol 6.25 mg tablet TAKE ONE (1) TABLET BY MOUTH TWICE DAILY WITH BREAKFAST /SUPPER MUST ADMINISER WITH A MEAL/FOOD active Not Available Not Available No t Available meloxicam 15 mg tablet TAKE ONE (1) TABLET EVERY DAY BY ORAL ROUTE FOR 30 DAYS. active Not Available Not Available No t Available isosorbide mononitrate ER 30 mg tablet,exte nded release 24 hr TAKE 1 TABLET BY MOUTH EVERY DAY active Not Available Not Available No t Available cyanocobala min (vit B-12) 1,000 mcg tablet TAKE ONE (1) TABLET BY MOUTH EVERY DAY active Not Available Not Available No t Available sulfamethox azole 800 mg-trimetho prim 160 mg tablet TAKE ONE (1) TABLET TWICE A WEEK BY MOUTH FOR 10 DAYS. active Not Available Not Available No t Available aspirin 81 mg tablet,michael yed release TAKE ONE (1) TABLET EVERY DAY BY ORAL ROUTE FOR 30 DAYS. active Not Available Not Available No t Available levothyroxi ne 100 mcg tablet TAKE ONE (1) TABLET BY MOUTH EVERY DAY active Not Available Not Available No t Available amoxicillin 875 mg tablet TAKE 1 TABLET BY MOUTH TWICE DAILY active Not Available Not Available No t Available Kenalog 10 mg/mL suspension for injection Take 2 mg by injection route. 2022 active Not Available Not Available Not Avai lable cephalexin 500 mg capsule TAKE ONE (1) CAPSULE TWICE A DAY BY ORAL ROUTE DIRECTED FOR 7 DAYS. active Not Available Not Available No t Available lansoprazol e 30 mg capsule,del ayed release TAKE ONE (1) CAPSULE BY MOUTH TWICE DAILY active Not Available Not Available No t Available Xylocaine 20 mg/mL (2 %) injection solution Take 2 mg by injection route. 06/18 completed Not Available Not Available Not Available verapamil ER (SR) 240 mg tablet,exte nded release TAKE ONE (1) TABLET BY MOUTH EVERY DAY active Not Available Not Available No t Available furosemide 20 mg tablet TAKE ONE (1) TABLET BY MOUTH EVERY DAY active Not Available Not Available No t Available ergocalcife rol (vitamin D2) 1,250 mcg (50,000 unit) capsule TAKE ONE (1) CAPSULE BY MOUTH EVERY WEEK active Not Available Not Available No t Available methylpredn isolone 4 mg tablets in a dose pack TAKE DIRECTED PER PACKAGE INSTRUCTI ONS active Not Available Not Available No t Available lisinopril 40 mg tablet TAKE ONE (1) TABLET BY MOUTH EVERY DAY active Not Available Not Available No t Available fluticasone propionate 50 mcg/actuati on nasal spray,suspe nsion INSTILL ONE (1) SPRAY INTO EACH NOSTRIL TWICE DAILY active Not Available Not Available No t Available spironolact one 50 mg tablet TAKE ONE (1) TABLET EVERY DAY BY ORAL ROUTE FOR 90 DAYS. active Not Available Not Available No t Available bupivacaine (PF) 0.25 % (2.5 mg/mL) injection solution Take 2 mg by injection route. 2022 active Not Available Not Available Not Avai lable bupivacaine (PF) 0.5 % (5 mg/mL) injection solution Take 2 mL by injection route. 2022 active Not Available Not Available Not Avai lable potassium chloride ER 10 mEq tablet,exte nded release(par t/cryst) TAKE ONE (1) TABLET BY MOUTH TWICE DAILY active Not Available Not Available No t Available Euflexxa 10 mg/mL (mw 2.4-3.6 million) intra-artic ular syringe Inject 2 mL by intra-art icular route for 21 days. 2022 active Not Available Not Available Not Avai lable Lasix active Not Available Not Availa ble Not Available carvedilol 01/21 completed Not Available Not Available Not Available Plavix active Not Available Not Availa ble Not Available peg 3350-electr olytes 236 gram-22.74 gram-6.74 gram-5.86 gram solution 240 ML ORALLY EVERY 10 MINUTES UNTIL FECAL EFFLUENT IS CLEAR active Not Available Not Available No t Available FeroSul 325 mg (65 mg iron) tablet TAKE ONE (1) TABLET BY MOUTH TWICE DAILY active Not Available Not Available No t Available Humalog KwikPen (U-100) Insulin 100 unit/mL subcutaneou s INJECT SUBCUTANE OUSLY 10 UNITS THREE (3) TIMES DAILY active Not Available Not Available No t Available Prodigy No Coding strips USE DIRECTED FOUR (4) TIMES DAILY active Not Available Not Available No t Available Suprep Bowel Prep Kit 17.5 gram-3.13 gram-1.6 gram oral solution FOLLOW MAILED INSTRUCTI ONS active Not Available Not Available No t Available Xarelto 20 mg tablet TAKE ONE (1) TABLET BY MOUTH EVERY DAY active Not Available Not Available No t Available PreviDent 5000 Booster Plus 1.1 % dental paste BRUSH TWICE A DAY AFTER EACH MEAL active Not Available Not Available No t Available Tothomas SoloStar U-300 Insulin 300 unit/mL (1.5 mL) subcutaneou s pen INJECT 14 UNITS SUBCUTANE OUSLY TWICE DAILY active Not Available Not Available No t Available TechLITE Pen Needle 32 gauge x 1/4 USE DIRECTED TWICE DAILY active Not Available Not Available No t Available Gelsyn-3 16.8 mg/2 mL intra-artic ular syringe Inject 2 mL by intra-art icular route for 21 days. 2021 active Not Available Not Available Not Avai lable OneTouch Ultra2 Meter USE DIRECTED TESTING BLOOD SUGAR THREE (3) TIMES DAILY active Not Available Not Available No t Available OneTouch Delica Plus Lancet 33 gauge USE DIRECTED FOR TESTING BLOOD SUGAR THREE (3) TIMES DAILY active Not Available Not Available No t Available Tab-A-Emily 400 mcg tablet TAKE ONE (1) TABLET EVERY DAY BY ORAL ROUTE FOR 90 DAYS. active Not Available Not Available No t Available aspirin 81 mg capsule Take 1 capsule every day by oral route. 01/21 completed Not Available Not Available Not Available Vitals Date Recorded Body height Provider Name an d Address Organization Details Last Updated DateTime 01/21/2023 152.4 cm Montse Ramires OLAF [facility] & [place] 01/21/2023 14:41:34 Date Recorded Body height Provider Name an d Address Organization Details Last Updated DateTime 05/19/2023 152.4 cm Noris Dubon OLAF [facility] & [place] 05/19/2023 15:51:07 Date Recorded Body height Provider Name an d Address Organization Details Last Updated DateTime 05/27/2023 152.4 cm Noris Jagdish OLAF [facility] & [place] 05/27/2023 15:07:26 Social History Question Answer Notes LastModified by Organizat ion Details LastModified Time Tobacco Smoking Status Never Smoker Montse norton OLAF - [facility] & [place] 05/09/2022 13:25:07 What Is Your Level Of Alcohol Consumption? None 3 Information not available 05/09/2022 Sex: Female Functional Status None recorded. Mental Status None recorded. Family History Relationship Description Onset Age of this Age Resolved Age Notes LastModified by Organization Details LastModified Time Mother Hypertensive disorder [email or web address] Not available 2021 13:23:51 Father Coronary arterioscler osis [email or web address] Not available 2022 13:56:05 Father Diabetes mellitus [email or web address] Not available 2022 13:56:05 Medical History Condition Response Diabetes Y Thyroid Problems Y Gynecological HistoryNo gynecological history recorded. Obstetrics History GPAL:G 0 P 0 0 0 0 Immunizations Vaccine Type Date Status Note Provider Nam e and Address Organization Details Recorded Time Influenza, split virus, trivalent, PF 2 completed Montse norton OLAF - [facility] & [place] 06/05/2022 15:23:17 COVID-19, mRNA, LNP-S, PF, 100 mcg/0.5mL dose or 50 mcg/0.25mL dose 2 completed Montse norton OLAF - [facility] & [place] 06/05/2022 15:23:18 Influenza, split virus, trivalent, PF 3 completed Montse norton OLAF - [facility] & [place] 06/05/2022 15:23:18 Influenza, high-dose, quadrivalent, PF 1 completed Montse norton OLAF - [facility] & [place] 06/05/2022 15:23:18 Influenza, split virus, quadrivalent, preservative 9 completed Montse norton OLAF - [facility] & [place] 06/05/2022 15:23:18 Influenza, split virus, quadrivalent, preservative 9 completed Montse norton OLAF - [facility] & [place] 06/05/2022 15:23:18 COVID-19, mRNA, LNP-S, PF, 100 mcg/0.5mL dose or 50 mcg/0.25mL dose 1 completed Montse Ramires errol, [place] - [facility] & [place] 06/05/2022 15:23:18 COVID-19, mRNA, LNP-S, PF, 100 mcg/0.5mL dose or 50 mcg/0.25mL dose 1 completed Montse norton, OLAF - [facility] - [place] & [place] 06/05/2022 15:23:18 COVID-19, mRNA, LNP-S, PF, 100 mcg/0.5mL dose or 50 mcg/0.25mL dose 1 completed Montse Ramires [place] [facility] & [place] 06/05/2022 15:23:18 Influenza, split virus, quadrivalent, PF 0 completed Montse Ramires [place] [facility] & [place] 06/05/2022 15:23:18 Pneumococcal conjugate PCV20, polysaccharide MSX702 conjugate, adjuvant, PF 3 completed Noris Dubon [place] [facility] & [place] 05/19/2023 15:51:15 Tdap 3 completed Noris Dubon errol, [facility] & [place] 05/19/2023 15:51:15 Past Encounters Encounter ID Performer Location Encounter Start Date Encounter Closed Date Diagnosis/Indication Diagnosis SNOMED-CT Code Diagnosis ICD10 Code Diagnosis Note [id number] MD NANETTE Farris [address] [address] 05/10/2022 07:59:51 05/10/2022 08:27:22 Arthritis of right knee 0501639072 366459 M13.861 History of total replacement of right hip joint 0849303348 71046 Z96.641 [id number] MAITE LEAL [address] [address] 06/05/2022 15:03:32 06/05/2022 15:44:20 Osteoarthritis of left knee joint 1316588331 58908 M17.12 Osteoarthr itis of right knee joint 8328447252 79226 M17.11 [id number] [facility] [address] [place], [place] [address] 06/12/2022 10:43:47 06/12/2022 11:38:14 Osteoarthritis of right knee joint 1848373535 34274 M17.11 [id number] MD [facility] [address] [place] [address] 9 06/20/2022 09:45:36 06/20/2022 10:22:37 Osteoarthritis of right knee joint 9618235411 60546 M17.11 [id number] Reji Roach MD [facility] [address] [place] [address] 9 01/21/2023 14:02:33 01/21/2023 14:58:46 Osteoarthritis of left knee joint 1286182598 47987 M17.12 [id number] [facility] [address] [place] [address] 9 04/23/2023 12:51:13 04/23/2023 13:12:17 Osteoarthritis of left knee joint 0039209079 81929 M17.12 [id number] [facility] [address] [place] [address] 9 05/19/2023 15:28:39 05/19/2023 16:08:44 Osteoarthritis of right knee joint 4113655066 45128 M17.11 [id number] [facility] [address] [place] [address] 9 05/27/2023 14:55:40 05/27/2023 15:23:52 Osteoarthritis of left knee joint 4481143303 90586 M17.12 [id number] [facility] [address] [place] [address] 06/03/2023 13:53:25 06/03/2023 14:22:33 Osteoarthritis of left knee joint 3546875234 15716 M17.12 Health Concerns Section Related Observation LastModified by Organization Detai ls LastModified Time None Recorded Concern Status LastModified by Organization Details LastModified Time None Recorded Advance Directives Directive None Recorded Payers Insurance Date Sequence Insurance Name Policy Number Policy Leonardo Covered Member ID Leonardo Member ID Guarantor Name 02/21/2024 1 [employer] (MEDICARE REPLACEMENT HMO) Ginger Heard [id number] Ginger Heard 02/21/2024 1 [employer] (MEDICARE REPLACEMENT REGIONAL PPO) [id number] Ginger Heard [id number] Ginger Heard Notes Date Note Type Note Provider Name and Address Organization Details Recorded Time 01/21/2023 text/html 82 year old female here today for repeat left knee injection. She states that her last injection helped for greater than 3 months. She takes ibprofen as needed. Reji Roach MD [address] [place] [address],[address], [place], [address], [place] - [facility] - [facility] 01/22/2023 07:51:05 04/23/2023 text/html 83 y/o female here today for left knee injection. Last injection given on 6. helped for 2 months. [email or web address] DORON PETERS DO [address] [place] [address],[address], [place], [address], [place] - [facility] - [place] & [place] 04/23/2023 13:31:47 05/19/2023 text/html Patient here for #1 Euflexxa right knee injection. [email or web address] Reji Roach MD [address] [place] [address],[address], [place], [address], [place] - [facility] - [place] & [place] 05/21/2023 16:04:18 05/27/2023 text/html Patient here for #2 Euflexxa injection LEFT knee. States she is feeling effective results from first injection. [email or web address] Reji Roach MD [address] [facility],[address], [place], [address], [place] - [facility] - [place] & [place] 05/28/2023 08:09:14 06/03/2023 text/html 83 y/o female here today for Euflexxa #3 left knee. Pt states the injections are helping. [email or web address] KECIA ALAS NP [address] [facility],[address], [place], [address], [place] - [place] & [place] 06/03/2023 14:41:51 OBGyn Episode No OBEpisode recorded.
--- NOTE | 2024-12-09 13:00 | US_ITS ---
FINAL REPORT TECHNIQUE: Sonographic images of the thyroid bed were obtained in the longitudinal and transverse planes. CLINICAL HISTORY: history of thyroidectomy follow up COMPARISON: 12/18/2023 FINDINGS: The patient is status post thyroidectomy. There is no abnormal soft tissue in the thyroid bed. A normal-sized lymph node in the left neck is unchanged from the prior study. IMPRESSION: No abnormal soft tissue in the thyroid bed. Stable normal-sized lymph node in the left neck. Reviewed, Interpreted and Dictated by Alessandra Alvarez MD Transcribed by JACQUELINE Cotton Authenticated and [facility]
== END 2024-12-09 23:59 | disposition home or self-care (01) ==
LOC: RAD 12:08
PROVIDERS: PCP Family Medicine; Visit Provider Nurse Practitioner
DX: E89.0 Postprocedural hypothyroidism (principal)
CPT/HCPCS: 76536

== ENCOUNTER 2025-03-01 13:38 | Outpatient (CLI) | payer MEDICARE, SELFPAY ==
--- OUTSIDE RECORDS SUMMARY | 2025-03-01 13:41 | XMS_ITS | Clinical Summary ---
Author Organization [facility] Address [address] [place] [address] Care Team Providers Care Advance Agent Name Role Phone Blair Lora MD Primary Care Provider [phone] Source Comments This information has been disclosed to you from confidential records protectedfrom disclosure by state law. You shall make no further disclosure of thisinformation without the specific, written, and informed release of theindividual to whom it pertains, or as otherwise permitted by law. A generalauthorization for the release of medical or other information is not sufficientfor the purposes of therelease of HIV test results or diagnoses. [id number] Health Immunizations Immunization Administration Dates Next Due Influenza, unspecified 05/04/2009 Pneumococcal polysaccharide, 23-valent 9 Social History Tobacco Use Types Packs/Day Years Used Date Smoking Tobacco: Never Assessed Comments Unknown Sex and Gender Information Value Date Recorded Sex Assigned at Not on file Legal Sex Female 11:17 PM EST Gender Identity Not on file Sexual Orientation Not on file Plan of Treatment Not on file Care Teams Advance Agent Relationship Specialty Start Date End Date Blair Lora MD [address] [place] [address] PCP - General 02/10/10
--- OUTSIDE RECORDS SUMMARY | 2025-03-01 13:41 | XMS_ITS | Encounter Summary ---
Author Organization [facility] Address [address] [place] [address] Care Team Providers Care Movie Projectionist Name Role Phone Alok Junior MD Primary Care Provider [phone] Encounter Details Date Type Department Care Team (Late st Contact Info) Description 08/06/2010 Telephone Oncology Spec [address] [place] [address] Lora Toth RT Social History Tobacco Use Types Packs/Day Years Used Date Smoking Tobacco: Never Alcohol Use Standard Drinks/Week Comments No 0 (1 standard drink = 0.6 oz pur e alcohol) Comments No Sex and Gender Information Value Date Recorded Sex Assigned at Not on file Legal Sex Female 11:11 PM EST Gender Identity Not on file Sexual Orientation Not on file documented as of this encounter Miscellaneous Notes * Telephone Encounter - Lora Toth RT - 08/06/2010 11:35 AM EST Lung Health-Certified letter was mailed to last known address to inform patient of a possible abnormal finding on their report from a CXR completed on 06/22/10. Assistance was offered with schedulinga F/U appointment, answering questions and/or providing support in addition to providing contact information for the [facility] Advocate. Lora Toth [facility] documented in this encounter Plan of Treatment Not on file documented as of this encounter Visit Diagnoses Not on filedocumented in this encounter Care Teams Movie Projectionist Relationship Specialty Start Date End Date Alok Junior MD [address] [place] [address] [address] [place] [address] PCP - General 05/29/10 documented as of this encounter
--- OUTSIDE RECORDS SUMMARY | 2025-03-01 13:41 | XMS_ITS | Referral Summary ---
Author Organization [employer] ([place], [place], [place], [place]) Address [address] [place] [address] Care Team Providers Care Private Branch Exchange Installer Name Role Phone Blair Lora MD Primary Care Provider Lamin Minre MD Unavailable Aydee Olivas MD Unavailable [phone] Encounters Date Type Department Care Team Description 12/29/2024 Telephone [facility] Cardiothoracic Surgery [address] [address] Aydee Olivas MD Appointment (Faxed note to Dr Ward's office. Requesting repeat echo in 3-6 mths to follow up on aortic stenosis.) 12/29/2024 Telephone [facility] Cardiology [address] [place] [phone] Kanwal Garcia RN Results 12/28/2024 Travel 12/28/2024 7:09 AM EDT - 12/28/2024 11:59 PM EDT Hospital Encounter [facility] Non-Invasive Cardiology [address] [place] [address] Aydee Olivas MD Aortic stenosis Discharge Disposition: Home or Self Care 12/28/2024 10:00 AM EDT Office Visit [facility] Cardiothoracic [address] [address] Aydee Olivas MD Aortic valve stenosis, etiology of cardiac valve disease unspecified (Primary Dx) 12/14/2024 Telephone [facility] Cardiothoracic Surgery [address] [place] [address] Aydee Olivas MD Appointment 12/09/2024 Orders Only [facility] Cardiothoracic Surgery [address] [place] [phone] Lamin Miner MD 12/08/2024 Orders Only [facility] [place] [address] Aydee Olivas MD Aortic stenosis (Primary Dx) 12/08/2024 Orders Only [facility] Cardiothoracic Surgery [place] [phone] Glo Stover RN 12/08/2024 Orders Only [facility] Cardiooracic Surgery [place] [phone] Priya Cruz MD 12/07/2024 Telephone [facility] Cardiooracic [place] [phone] Aydee Olivas MD Appointment from Last 3 Months Allergies No known active allergies Medications spironolactone (ALDACTONE) 50 MG tablet Take 1 tablet (50 mg total) by mouth daily. Active atorvastatin (LIPITOR) 80 MG tablet Take 1 tablet (80 mg total) by mouth daily. Active carvediloL (COREG) 12.5 MG tablet Take 1 tablet (12.5 mg total) by mouth 2 (two) times daily with breakfast and dinner. Active apixaban (Eliquis) 5 mg tab tablet Take by mouth 2 (two) times daily. Active ferrous sulfate 325 (65 FE) MG tablet Take 1 tablet (325 mg total) by mouth daily with breakfast. Active furosemide (LASIX) 20 MG tablet Take 1 tablet (20 mg total) by mouth daily. Active lansoprazole (PREVACID) 30 MG capsule Take 1 capsule (30 mg total) by mouth Daily (0600). Active levothyroxine (SYNTHROID) 112 MCG tablet Take 1 tablet (112 mcg total) by mouth Daily (0600). Active lisinopriL (ZESTRIL) 40 MG tablet Take 1 tablet (40 mg total) by mouth daily. Active multivitamin per tablet Take 1 tablet by mouth daily. Active verapamiL (CALAN) 120 MG tablet Take 1 tablet (120 mg total) by mouth every 8 (eight) hours. Active cyanocobalamin (vitamin B-12) 500 MCG tablet Take 1 tablet (500 mcg total) by mouth daily. Active ergocalciferol (Vitamin D2) 1,250 mcg (50,000 unit) capsule Take 1 capsule (50,000 Units total) by mouth every 7 days. Active meloxicam (MOBIC) 15 MG tablet Take 1 tablet (15 mg total) by mouth daily. Active insulin glargine U-300 conc (Toujeo Max U-300 SoloStar) 300 unit/mL (3 mL) syringe Inject 450 Units under the skin daily. Active insulin lispro (HumaLOG) 100 unit/mL inpn Inject 5 Units under the skin 3 (three) times daily before meals Prn sliding scale . Active fluticasone propionate (FLONASE) 50 mcg/actuation nasal spray Administer 2 sprays into each nostril daily. Active nitroglycerin (NITROSTAT) 0.[address] 1 tablet (0.4 mg total) under the tongue every 5 (five) minutes as needed for chest pain Put 1 pill under tongue every 5min as needed for chest pain.No more than 3 doses in 15min.Call 911 if pain unrelieved 5min after 1st dose. Active Active Problems Problem Noted Date Diagnosed Date CAD (coronary artery disease) 12/08/2024 Moderate aortic stenosis Social History Tobacco Use Types Packs/Day Years Used Date Smoking Tobacco: Never Smokeless Tobacco: Never Tobacco Cessation:Counseling Given: Not Answered Alcohol Use Standard Drinks/Week Comments Never 0 (1 standard drink = 0.6 oz pur e alcohol) Comments Unknown Sex and Gender Information Value Date Recorded Sex Assigned at Not on file Legal Sex Female 12:19 PM CDT Gender Identity Not on file Sexual Orientation Not on file Last Filed Vital Signs Vital Sign Reading Time Taken Comments Blood Pressure 148/91 12/28/2024 8:47 AM EDT Pulse 63 12/28/2024 8:47 AM EDT Temperature 36.7 C (98 F) 12/28/2024 8:47 AM EDT Respiratory Rate - - Oxygen Saturation 96% 12/28/2024 8:47 AM EDT Inhaled Oxygen Concentration - - Weight 108.9 kg (240 lb) 12/28/2024 8:47 AM EDT Height 154.9 cm (5' 1 ) 12/28/2024 8:47 AM EDT Body Mass Index 45.35 12/28/2024 8:47 AM EDT Plan of Treatment Not on file Procedures Procedure Name Priority Date/Time Associated Diagnosis Comments ECHO COMPLETE (DOPPLER / COLOR) WO CONTRAST Routine 12/28/2024 8:00 AM EDT Aortic stenosis EXTERNAL CARDIOLOGY - CARDIAC CATH Routine 12/07/2024 10:25 AM EDT from Last 3 Months Results * ECHO COMPLETE (DOPPLER / COLOR) WO CONTRAST (12/28/2024 8:00 AM EDT) Anatomical Region Laterality Modality Heart Vascular Ultraso und 12/28/2024 7:45 AM EDT Narrative 12/28/2024 6:13 PM EDT TRANSTHORACIC ECHOCARDIOGRAPHY REPORT Demographics Patient Name: ORQUIDEA TEIXEIRA : 1940 Age: 84 year(s) Corporate ID Number: [id number] Gender Female Associate Biological Sales: YAIR Mccullough Height: 60 inches Referring Physician: AYDEE OLIVAS Weight: 240 pounds MD Interpreting AURELIA CHANG MD BMI: 46.87 kg/m^2 Physician: Date of Service: 12/28/2024 Blood 140/80 mmHg Pressure: Type of Study: TTE procedure: ECHO COMPLETE (DOPPLER / COLOR) W OR WO CONTRAST. Patient Status: Routine OP Study Location: Echo LabTechnical Quality: Adequate visualization History/Tech Notes: Indication: Aortic stenosis I35.0 Impression: ######################################## Normal sized left ventricle. Mild left ventricular hypertrophy. Visually estimated ejection fraction 55% +/- 5%. Abnormal systolic strain pattern. Indeterminate diastolic function. Mild aortic regurgitation. Calcified aortic valve leaflets. Moderate to severe aortic stenosis Peak/Mean PG 55.12/33.71 mmHg, AV vmax 3.7 m/s, ANANYA 0.8 cm^2 ######################################## Measurements Summary: LVEDd: 3.87 cm LVESd: 2.89 cm IVSEd: 1.08 cm AO Root:3.07 cm LVPWd: 1.15 cm Contractility Score Normal Left Ventricular contractility was noted. LV regional wall motion: (0-Not visualized 1-Normal 2-Hypokinesis 3-Akinesis 4-Dyskinesis 5-Aneurysm) Left Ventricle Peak E-wave: 1.36 Peak A-wave: 1.36 m/s E/A ratio: 1 m/s Volume marbelyzf54.58 LV length: 7.79 cm ml Volume yrrngcyf55.92 ml LVOT diameter: 1.94 cm Normal sized left ventricle. Mild left ventricular hypertrophy. Visually estimated ejection fraction 55% +/- 5%. Abnormal systolic strain pattern. Indeterminate diastolic function. No left ventricular masses or thrombi. Right Ventricle Diastolic dimension: 3.29 RV systolic pressure: 23.81 mmHg cm Normal sized right ventricle. Normal TAPSE c/w normal right ventricular function Left Atrium LA dimension: 3.7 cm LA volume:66.45 ml LA/Aorta: 1.21 Normal sized left atrium. Normal left atrial volume index 32.90 ml/m^2. Intact atrial septum. No atrial mass or thrombus. Right Atrium Normal sized right atrium. Intact atrial septum. No atrial mass or thrombus. Mitral Valve Deceleration time: 281.28 msec Structurally normal mitral valve. Mitral valve annulus calcification. Mild (1+) mitral regurgitation. No mitral stenosis. No masses or vegetations seen. Aortic Valve AI P1/2t: Area continuity: Peak velocity: 3.71 m/s 568.72 msec 0.71 cm^2 Peak gradient: 55.12 mmHg AV VTI: 102.33 Mean velocity: 2.8 Mean gradient: 33.71 mmHg cm m/s Deceleration time: 1961.1 LVOT VTI: 24.47 msec cm Calcified aortic valve leaflets. Mild aortic regurgitation. Moderate to severe aortic stenosis Peak/Mean PG 55.12/33.71 mmHg. No masses or vegetations seen. Tricuspid Valve TR velocity: 2.28 m/s TR gradient: 20.04748 mmHg Estimated RAP: 3 mmHg RVSP: 23.81 mmHg Structurally normal tricuspid valve. Mild (1+) tricuspid regurgitation. No tricuspid stenosis. No masses or vegetations seen. Pulmonic Valve Acceleration time: 175.07 msec PASP: 23.81 mmHg Structurally normal pulmonic valve. No pulmonic regurgitation. No pulmonic stenosis. No masses or vegetations seen. Great Vessels Aorta Aortic Root: 3.07 cm LVOT Diameter: 1.94 cm Visualized thoracic aorta is normal. Normal aortic root. No evidence of dissection. Normal IVC with appropriate collapse. Pericardium / Pleura No pericardial effusion. Procedure Note Aurelia Chang MD - 12/28/2024 TRANSTHORACIC ECHOCARDIOGRAPHY REPORT Demographics Patient Name: ORQUIDEA TEIXEIRA : 1940 Age: 84 year(s) Corporate ID Number: [id number] Gender Female Associate Biological Sales: YAIR Mccullough Height: 60 inches Referring Physician: AYDEE OLIVAS Weight: 240 pounds Interpreting AURELIA CHANG MD BMI: 46.87kg/m^2 Physician: Date of Service: 12/28/2024 Blood 140/80 mmHg Pressure: Type of Study: TTE procedure: ECHO COMPLETE (DOPPLER / COLOR) W OR WO CONTRAST. Patient Status: Routine OP Study Location: Echo LabTechnical Quality: Adequate visualization History/Tech Notes: Indication: Aortic stenosis I35.0 Impression: ######################################## Normal sized left ventricle. Mild left ventricular hypertrophy. Visually estimated ejection fraction 55% +/- 5%. Abnormal systolic strain pattern. Indeterminate diastolic function. Mild aortic regurgitation. Calcified aortic valve leaflets. Moderate to severe aortic stenosis Peak/Mean PG 55.12/33.71 mmHg, AVvmax 3.7 m/s, ANANYA 0.8 cm^2 ######################################## Measurements Summary: LVEDd: 3.87 cm LVESd: 2.89 cm IVSEd: 1.08 cm AO Root:3.07 cm LVPWd: 1.15 cm Contractility Score Normal Left Ventricular contractility was noted. LV regional wall motion: (0-Not visualized 1-Normal 2-Hypokinesis 3-Akinesis 4-Dyskinesis 5-Aneurysm) Left Ventricle Peak E-wave: 1.36 Peak A-wave: 1.36 m/s E/A ratio: 1 m/s Volume tupqgwyur14.58 LV length: 7.79 cm ml Volume xytimhoh36.92 ml LVOT diameter: 1.94 cm Normal sized left ventricle. Mild left ventricular hypertrophy. Visually estimated ejection fraction 55% +/- 5%. Abnormal systolic strain pattern. Indeterminate diastolic function. No left ventricular masses or thrombi. Right Ventricle Diastolic dimension: 3.29 RV systolic pressure: 23.81 mmHg cm Normal sized right ventricle. Normal TAPSE c/w normal right ventricular function Left Atrium LA dimension: 3.7 cm LA volume:66.45 ml LA/Aorta: 1.21 Normal sized left atrium. Normal left atrial volume index 32.90 ml/m^2. Intact atrial septum. No atrial mass or thrombus. Right Atrium Normal sized right atrium. Intact atrial septum. No atrial mass or thrombus. Mitral Valve Deceleration time: 281.28 msec Structurally normal mitral valve. Mitral valve annulus calcification. Mild (1+) mitral regurgitation. No mitral stenosis. No masses or vegetations seen. Aortic Valve AI P1/2t: Area continuity: Peak velocity: 3.71 m/s 568.72 msec 0.71 cm^2 Peak gradient: 55.12 mmHg AV VTI: 102.33 Mean velocity: 2.8 Mean gradient: 33.71 mmHg cm m/s Deceleration time: 1961.1 LVOT VTI: 24.47 msec cm Calcified aortic valve leaflets. Mild aortic regurgitation. Moderate to severe aortic stenosis Peak/Mean PG 55.12/33.71 mmHg. No masses or vegetations seen. Tricuspid Valve TR velocity: 2.28 m/s TR gradient: 20.39613 mmHg Estimated RAP: 3 mmHg RVSP: 23.81 mmHg Structurally normal tricuspid valve. Mild (1+) tricuspid regurgitation. No tricuspid stenosis. No masses or vegetations seen. Pulmonic Valve Acceleration time: 175.07 msec PASP: 23.81 mmHg Structurally normal pulmonic valve. No pulmonic regurgitation. No pulmonic stenosis. No masses or vegetations seen. Great Vessels Aorta Aortic Root: 3.07 cm LVOT Diameter: 1.94 cm Visualized thoracic aorta is normal. Normal aortic root. No evidence of dissection. Normal IVC with appropriate collapse. Pericardium / Pleura No pericardial effusion. Aydee Olivas MD CV ECHO ORDERABLES Final Result * EXTERNAL CARDIOLOGY - CARDIAC CATH (12/07/2024 10:25 AM EDT) Anatomical Region Laterality Modality Other Lamin Miner MD CV CARDIAC CATH ORDERAB LES Final Result from Last 3 Months Insurance [employer] O MAP Care Teams Private Branch Exchange Installer Relationship Specialty Start Date End Date Blair Lora MD [address] [facility] [address] [place] [address] PCP - General Family Medicine 12/07/24 Lamin Miner MD [address] [place] [address] [place] [address] Drying Room Supervisor Cardiology 12/07/24 Aydee Olivas MD [address] [facility] [place] [address] Surgeon Cardiothoracic Surgery 12/28/24
--- OUTSIDE RECORDS SUMMARY | 2025-03-01 13:41 | XMS_ITS | Clinical Summary ---
Author Organization [facility] Address [address] [place] [address] Care Team Providers Care Bacteriologist Medical Name Role Phone Alok Junior MD Primary Care Provider [phone] Allergies Active Allergy Reactions Criticality Noted Date Comments Dexamethasone Nausea And Vomiting 07/04/2010 Dr states not true allergy...ok to give decadron to pt. Medications insulin aspart (NOVOLOG) 100 unit/mL injection Administer 14 Units subcutaneously Every morning. Active insulin aspart (NOVOLOG) 100 unit/mL injection Administer 14 Units subcutaneously Daily with lunch. Active insulin aspart (NOVOLOG) 100 unit/mL injection Administer 20 Units subcutaneously At bedtime. Active insulin detemir (LEVEMIR) 100 unit/mL injection Administer 45 Units subcutaneously At bedtime. Active Calcium Carbonate-Vitamin D2 1,200-400 mg-unit Cap Take 1 Tab by mouth Daily. Active OMEGA-3 FATTY ACIDS (OMEGA 3 PO) Take 1 Teaspoon by mouth Daily. Active anastrozole (ARIMIDEX) 1 mgIndications:Hor yousif Receptor Positive Breast Cancer Take 1 mg by mouth Daily. Indications: HORMONE RECEPTOR POSITIVE BREAST CANCER Active calcitRIOL 0.5 mcg capsuleIndication s:S/P total thyroidectomy Take 1 Cap by mouth Twice a day. 60 Cap 1 07/05/20 10 Active levothyroxine (SYNTHROID) 150 mcg tabletIndications :Hypothyroidism (acquired) Take 1 Tab by mouth Daily. 30 Tab 3 07/10/20 10 Active Active Problems Problem Noted Date Diagnosed Date Xerostomia 07/31/2010 Morbid obesity 07/31/2010 DM (diabetes mellitus) 07/31/2010 Tongue burning sensation 07/31/2010 Hypothyroidism (acquired) 07/10/2010 Thyroid cancer 07/10/2010 Nontoxic multinodular goiter 07/10/2010 Hypocalcemia 07/10/2010 Family History Medical History Relation Name Comments Cancer Brother prostate and mu ltiple myloma Heart Disease Father Cancer Sister breast Heart Disease Sister Relation Name Status Comments Brother Alive Father Mother Sister Alive Social History Tobacco Use Types Packs/Day Years [...] Sign Reading Time Taken Comments Blood Pressure 120/76 07/31/2010 1:59 PM EST Pulse 72 07/31/2010 1:59 PM EST Temperature 37 C (98.6 F) 07/10/2010 1:52 PM EST Respiratory Rate 18 07/31/2010 1:59 PM EST Oxygen Saturation 94% 07/05/2010 7:30 AM EST Inhaled Oxygen Concentration - - Weight 108.9 kg (240 lb) 07/31/2010 1:59 PM EST Height 154.9 cm (5' 1 ) 07/31/2010 1:59 PM EST Body Mass Index 45.35 07/31/2010 1:59 PM EST Plan of Treatment Health Maintenance Due Date Last Done Comments ANNUAL WELLNESS EXAM 1945 DTAP/TDAP/TD VACCINE (1 - Tdap) 1961 PNEUMOCOCCAL VACCINE 65+ YEA RS (1 of 1 - PCV) 1992 Shingles Vaccine (Shingrix) (1 of 2) 1992 DEXA SCAN EVERY 2 YR (Osteop orosis Screen) 2007 INFLUENZA VACCINE (#1) 2025 HEP A VACCINE Aged Out No longer elig ible based on patient's age to complete this topic HIB VACCINE Aged Out No longer eligi ble based on patient's age to complete this topic ROTOVIRUS VACCINE Aged Out No longer eligible based on patient's age to complete this topic Insurance MEDICARE MEDICARE Care Teams Bacteriologist Medical Relationship Specialty Start Date End Date Alok Junior MD [address] [place] [address] [address] [place] [address] PCP - General 05/29/10
--- OUTSIDE RECORDS SUMMARY | 2025-03-01 13:41 | XMS_ITS | Clinical Summary ---
Author Organization [employer] ([place], [place], [place], [place]) Address [address] [place] [address] Care Team Providers Care Box Closing Machine Operator Name Role Phone Blair Lora MD Primary Care Provider Lamin Miner MD Unavailable [phone] Aydee Olivas MD Unavailable [phone] Allergies No known active allergies Medications spironolactone [...] (coronary artery disease) 12/08/2024 Moderate aortic stenosis Encounters Date Type Department Care Team Description 12/29/2024 Telephone [facility] Cardiothoracic Surgery [address] [phone] Aydee Olivas MD Appointment (Faxed note to Dr Ward's office. Requesting repeat echo in 3-6 mths to follow up on aortic stenosis.) 12/29/2024 Telephone [facility] Cardiology [address] [place] [phone] Kanwal Garcia RN Results 12/28/2024 10:00 AM EDT Office Visit [facility] Cardiothoracic Surgery [address] [phone] Aydee Olivas MD Aortic valve stenosis, etiology of cardiac valve disease unspecified (Primary Dx) 12/28/2024 7:09 AM EDT - 12/28/2024 11:59 PM EDT Hospital Encounter [facility] Non-Invasive Cardiology [address] [place] [phone] Aydee Olivas MD Aortic stenosis Discharge Disposition: Home or Self Care 12/28/2024 Travel 12/14/2024 Telephone [facility] Cardiothoracic Surgery [address] [address] Aydee Olivas MD Appointment 12/09/2024 Orders Only [facility] Cardiothoracic Surgery - [address] [place] [phone] Lamin Miner MD 12/08/2024 Orders Only [facility] Cardiothoracic Surgery - [address] [address] Aydee Olivas MD Aortic stenosis (Primary Dx) 12/08/2024 Orders Only [facility] Cardiothoracic Surgery - [address] [place] [phone] Glo Stover RN 12/08/2024 Orders Only [facility] Cardiothoracic Surgery [address] [place] [phone] Priya Cruz MD 12/07/2024 Telephone [facility] Cardiothoracic Surgery [address] [place] [phone] Aydee Olivas MD Appointment from Last 3 Months Family History Medical History Relation Name Comments Cancer Other Diabetes Other Heart disease Other Relation Name Status Comments Father Mother Other Sister Social History Tobacco Use Types Packs/Day Years [...] 12/28/2024 8:47 AM EDT Plan of Treatment Health Maintenance Due Date Last Done Comments DXA SCAN 1940 Depression Screening (12+) 1954 Respiratory Syncytial Virus (RSV) Adult or (1 - 1-dose 75+ series) 2017 COVID-19 VACCINE (2023-2 5 season) 2024 11/16/2021, 06/07/2021, 10/19/2020, Additional history exists Falls Risk Screening 08/04/2024 Medicare IPPE (Welcome to Medicare) [id number] 08/04/2024 Influenza Vaccine (#1) 2025 04/14/2024, 2020 Tobacco Cessation Counseling and Screening (12+) 12/28/2025 12/28/2024 DTAP/TDAP/TD VACCINES (2 - T d or Tdap) 11/15/2032 11/15/2022 Pneumococcal 50+ years Completed 11/15/2022, 2008 Shingles Vaccine (Zoster) Completed 10/14/2024, 06/2024 Procedures Procedure Name Priority Date/Time Associated Diagnosis [...] EDT TRANSTHORACIC ECHOCARDIOGRAPHY REPORT Demographics Patient Name: BIRDIE MARROQUIN : 1940 Age: 84 year(s) Corporate ID Number: [id number] Gender Female Welding Machine Operator Plasma Arc: YAIR Mccullough Height: 60 inches Referring Physician: [...] 1.36 m/s E/A ratio: 1 m/s Volume uiintskvq08.58 LV length: 7.79 cm ml Volume jzkwbhay00.92 ml LVOT diameter: 1.94 cm Normal sized [...] Valve TR velocity: 2.28 m/s TR gradient: 20.27455 mmHg Estimated RAP: 3 mmHg RVSP: 23.81 [...] 12/28/2024 TRANSTHORACIC ECHOCARDIOGRAPHY REPORT Demographics Patient Name: BIRDIE MARROQUIN : 1940 Age: 84 year(s) Corporate ID Number: [id number] Gender Female Welding Machine Operator Plasma Arc: YAIR Mccullough Height: 60 inches Referring Physician: [...] 1.36 m/s E/A ratio: 1 m/s Volume xfourscoj24.58 LV length: 7.79 cm ml Volume fqfkxxiq51.92 ml LVOT diameter: 1.94 cm Normal sized [...] Valve TR velocity: 2.28 m/s TR gradient: 20.76860 mmHg Estimated RAP: 3 mmHg RVSP: 23.81 [...] collapse. Pericardium / Pleura No pericardial effusion. us Aydee Olivas MD CV ECHO ORDERABLES Final Result * EXTERNAL CARDIOLOGY - CARDIAC CATH (12/07/2024 10:25 AM EDT) Anatomical Region Laterality Modality Other Lamin Miner MD CV CARDIAC CATH ORDERAB LES Final Result from Last 3 Months Insurance [facility] [employer] O MAP Care Teams Box Closing Machine Operator Relationship Specialty Start Date End Date Blair Lora MD [address] [facility] [address] [place] [address] PCP - General Family Medicine 12/07/24 Lamin Miner MD [address] [place] [address] [place] [address] Automatic Lathe Operator Cardiology 12/07/24 Aydee Olivas MD [address] [facility] [place] [address] Surgeon Cardiothoracic Surgery 12/28/24
--- OUTSIDE RECORDS SUMMARY | 2025-03-01 13:41 | XMS_ITS | Clinical Summary ---
Author Organization [employer] Address [address] [place] [address] Care Team Providers Care Line Service Supervisor Name Role Phone Blair Lora MD Primary Care Provider [phone] Social History Tobacco Use Types Packs/Day Years Used Date Smoking Tobacco: Never Assessed Comments Unknown Sex and Gender Information Value Date Recorded Sex Assigned at Not on file Legal Sex Female 10:34 PM EDT Gender Identity Not on file Sexual Orientation Not on file Plan of Treatment Health Maintenance Due Date Last Done Comments DTap,Tdap,and Td (1 - Tdap) 1953 Pneumococcal 50+ (1 of 1 - PCV) 1992 Shingrix (#1) 1992 DEXA Scan 2007 RSV Vaccine (60+ or ) (1 - 1-dose 75+ series) 2017 Influenza Vaccine (#1) 2025 HPV Aged Out No longer eligi ble based on patient's age to complete this topic Meningococcal conjugate catie nt 4 (MCV4) Aged Out No longer eligible b ased on patient's age to complete this topic RSV Immunization (<20 months) Aged Out No longer eligible based on patient's age to complete this topic Insurance MEDICARE on file MEDICARE on file Care Teams Line Service Supervisor Relationship Specialty Start Date End Date Blair Lora MD PCP - General Family Medicine 01/28/12
--- OUTSIDE RECORDS SUMMARY | 2025-03-01 13:41 | XMS_ITS | Referral Summary ---
Author Organization [facility] Address [address] [place] [address] Care Team Providers Care Quality Improvement Engineer Name Role Phone Blair Lora MD Primary Care Provider [phone] Social History Tobacco Use Types Packs/Day Years Used Date Smoking Tobacco: Never Assessed Comments Unknown Sex and Gender Information Value Date Recorded Sex Assigned at Not on file Legal Sex Female 10:34 PM EDT Gender Identity Not on file Sexual Orientation Not on file Plan of Treatment Not on file Insurance MEDICARE on file MEDICARE on file Care Teams Quality Improvement Engineer Relationship Specialty Start Date End Date Blair Lora MD PCP - General Family Medicine 01/28/12
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
--- OUTSIDE RECORDS SUMMARY | 2025-03-01 13:42 | XMS_ITS | Clinical Summary ---
Author Organization [facility] Address [address] [place] [address] Care Team Providers Care Newspaper Editor Name Role Phone Blair Lora MD Primary Care Provider Allergies No known active allergies Medications Acetaminophen Extra Strength 500 MG tablet Take 1 tablet by mouth every 6 (six) hours if needed. 01/03/2021 Active carvedilol (Coreg) 12.5 MG tablet Take 12.5 mg by mouth twice a day. Active FeroSul 325 (65 Fe) MG tablet Take 1 tablet by mouth 2 (two) times a day. 03/06/2021 Active furosemide (Lasix) 20 MG tablet Take 1 tablet by mouth 1 (one) time each day. 03/06/2021 Active Toujeo SoloStar 300 UNIT/ML injection Inject 14 Units under the skin 2 (two) times a day. 03/06/2021 Active HumaLOG KWIKPEN 100 UNIT/ML injection Inject 10 Units under the skin 4 (four) times a day (with meals and nightly). 03/06/2021 Active levothyroxine (Synthroid, Levoxyl) 100 MCG tablet Take 100 mcg by mouth 1 (one) time each day. 03/06/2021 Active lansoprazole (Prevacid) [address] capsule Take 1 capsule by mouth 2 (two) times a day. 03/06/2021 Active lisinopril 40 MG tablet Take 40 mg by mouth 1 (one) time each day. 03/06/2021 Active potassium chloride CR (Klor-Con) 10 MEQ ER tablet Take 10 mEq by mouth 2 (two) times a day. 03/06/2021 Active verapamil SR (Calan-SR) 240 MG ER tablet Take 240 mg by mouth 1 (one) time each day. 11/29/2020 Active atorvastatin (Lipitor) 80 MG tablet Take 80 mg by mouth 1 (one) time each day. Active spironolactone (Aldactone) 50 MG tablet Take 1 tablet (50 mg total) by mouth 1 (one) time each day. 30 tablet 03/11/2021 Active Active Problems Problem Noted Date Diagnosed Date [place] (obstructive sleep apnea) 03/08/2021 Gastroesophageal reflux disease 03/08/2021 Murmur 03/08/2021 DM (diabetes mellitus) CHF (congestive heart failure) CAD (coronary artery disease) Thyroid mass Resolved Problems Problem Noted Date Diagnosed Date Resolved Date GI bleed 03/07/2021 03/10/2021 Immunizations Immunization Administration Dates Next Due Influenza, Unspecified 05/04/2009 Influenza, injectable, quadrivalent 05/28/2019,0 08/19/2018 Influenza, injectable, quadrivalent, preservativ e free 06/13/2020 Influenza, seasonal, injectable, preservative fr ee 06/25/2013,07/02/2012 Moderna COVID-19 Vaccine (Educational Program Assistant) 12+ years ,09/16/2020 Social History Tobacco Use Types Packs/Day Years Used Date Smoking Tobacco: Never Smokeless Tobacco: Never Alcohol Use Standard Drinks/Week Comments Never 0 (1 standard drink = 0.6 oz pur e alcohol) Comments Unknown Sex and Gender Information Value Date Recorded Sex Assigned at Not on file Legal Sex Female 8:31 PM EDT Gender Identity Not on file Sexual Orientation Not on file Last Filed Vital Signs Vital Sign Reading Time Taken Comments Blood Pressure 128/76 03/10/2021 11:59 AM EDT Pulse 77 03/10/2021 11:59 AM EDT Temperature 37.1 C (98.8 F) 03/10/2021 11:59 AM EDT Respiratory Rate 19 03/10/2021 7:25 AM EDT Oxygen Saturation 96% 03/10/2021 11:59 AM EDT Inhaled Oxygen Concentration - - Weight 101 kg (222 lb 14.2 oz) 03/09/2021 10:14 PM EDT Height 154.9 cm (5' 0.98 ) 03/09/2021 10:14 PM E DT Body Mass Index 42.14 03/09/2021 10:14 PM EDT Plan of Treatment Health Maintenance Due Date Last Done Comments [facility]-Bone Density Scan 1942 [facility]-Depression Screening 1942 [facility]-Infant/Child/Adol SDOH Screenings 1942 [facility]- SDOH Screenings 1960 [facility]-Adult SDOH Screenings 1960 [facility]-Zoster Vaccines (1 of 2) 1992 [facility]-RSV Vaccine: 60+ Years or (1 - 1-dose 75+ series) 2017 [id number] Vaccine (5 - season) 2024 11/16/2021, 06/07/2021, 10/19/2020, Additional history exists [facility]-Influenza Vaccine (#1) 04/04/202504/14, 06/07/2021, 06/13/2020, Additional history exists [facility]-DTaP,Tdap,and Td Vaccines (2 - Td or Tdap) 11/15/2032 11/15/2022 [facility]-Diabetes: Hemoglobin A1C Discontinued 07/04/2019 [facility]-Pneumococcal Vaccine: 50+ Years Completed 11/15/2022 HPV Vaccines Aged Out No longer eligi ble based on patient's age to complete this topic [facility]-HIB Vaccines Aged Out No longer e ligible based on patient's age to complete this topic [facility]-Hepatitis A Vaccines Aged Out No longer eligible based on patient's age to complete this topic [facility]-IPV Vaccines Aged Out No longer e ligible based on patient's age to complete this topic [facility]-Rotavirus Vaccines Aged Out No lo nger eligible based on patient's age to complete this topic Procedures Procedure Name Priority Date/Time Associated Diagnosis Comments HEMOGLOBIN A1C Routine 07/04/2019 8:30 PM EST from Last 3 Months or Most Recently Relevant to Health Maintenance Results * (ABNORMAL) Hemoglobin A1c (07/04/2019 8:30 PM EST) Hemoglobin A1c 8.4(H) 4.7 - 6.0 % [facility] Comment: Glycohemoglobin Reference Range, 0 years and up: 4.7 to 6.0% . HA1C Interpretive Data: Diagnosis of Diabetes: Diabetic > or = 6.5% Pre-diabetic 5.7 to 6.4% Non-diabetic < or = 5.6% . Glycemic Targets for Type I and Type II Diabetics: Non- Adults <7.0% Adults <6.0% Children and Adolescents <7.5% . Source: [place] [employer]. Standards of medical care in diabetes, 2017. Diabetes Care.2017:40 (suppl 1):S1-S135. . HbA1c assay performed by an ion-exchange chromatography method that is certified traceable to the DCCT. 07/04/2019 8:30 PM EST 07/04/2019 8:40 PM EST us Historical Provider LAB BLOOD ORDERABLES Shima l Result [facility] from Last 3 Months or Most Recently Relevant to Health Maintenance Insurance MEDICARE Advance Directives * Full Code (Latest Code Status on File) Date Activated Date Inactivated Comments 03/07/2021 4:24 PM 03/10/2021 5:50 PM Question Answer Comments Patient has decision-making capacity? Yes Care Teams Newspaper Editor Relationship Specialty Start Date End Date Blair Lora MD [address] [place] [id number] PCP - General 12/15/20
[2025-03-01 14:28] LABS: Hematocrit 37.6 % (37.0-47.0); Hemoglobin 12.4 g/dL (12.2-16.2); Immature Granulocytes % 0.2 %; Mean Corpuscular HGB Conc 33.0 g/dL (31.8-35.4); Mean Corpuscular Hemoglobin 28.9 pg (27.0-31.2); Mean Corpuscular Volume 87.6 fl (81-99); Nucleated Red Blood Cells % 0 %; Platelet Count 171 K/mm3 (142-424); Red Blood Count 4.29 M/mm3 (4.20-5.40); Red Cell Distribution Width-SD 43.5 fL; White Blood Count 4.3 K/mm3 (4.8-10.8)
[2025-03-01 14:36] LABS: INR 1.03 (0.9-1.1); Prothrombin Time 11.4 seconds (10.1-12.5)
[2025-03-01 14:43] LABS: Alanine Aminotransferase 21 U/L (12-78); Albumin Level 3.8 g/dl (3.5-5.0); Albumin/Globulin Ratio 1.5 (1.1-1.8); Alkaline Phosphatase 218 U/L (38-126); Anion Gap 12.0 mEq/L (5-15); Aspartate Amino Transferase 28 U/L (14-36); Bilirubin,Total 0.6 mg/dl (0.2-1.3); Blood Urea Nitrogen 15 mg/dl (7-17); Calcium 9.0 mg/dl (8.4-10.2); Carbon Dioxide 24 mmol/L (22.0-30.0); Chloride 105 mmol/L (98-107); Creatinine,Serum 1.10 mg/dl (0.52-1.04); Estimated Glomerular Filt Rate 48 ml/min (>60); GFR (African American) 58 ML/MIN (>60); Globulin 2.6 g/dL (1.3-3.2); Potassium 5.0 mmoL/L (3.5-5.1); Sodium 136 mmol/L (136-145); Total Protein,Serum 6.4 g/dl (6.3-8.2)
[2025-03-01 14:51] LABS: Glucose 504 mg/dl (74-100)
[2025-03-01 14:59] LABS: Free T4 (Free Thyroxine) 1.13 ng/dl (0.78-2.19)
[2025-03-01 15:38] LABS: Ferritin 21.1 ng/ml (11.1-264)
[2025-03-01 17:09] LABS: Thyroid Stimulating Hormone 15.20 uIU/mL (0.465-4.68)
[2025-03-02 09:26] LABS: Hepatitis B Surface Antigen Negative (Negative); Hepatitis C Antibody Non Reactive (Non Reactive)
[2025-03-04 00:11] LABS: ALT (SGPT) P5P 15 IU/L (0-40); AST (SGOT) P5P 23 IU/L (0-40); Alpha 2-Macroglobulins, Qn 307 mg/dL (110-276); Bilirubin, Total 0.2 mg/dL (0.0-1.2); Cholesterol, Total 210 mg/dL (100-199); GGT 73 IU/L (0-60); Glucose 499 mg/dL (70-99); Triglycerides 143 mg/dL (0-149)
== END 2025-03-01 23:59 | disposition home or self-care (01) ==
PROVIDERS: Nurse Practitioner; PCP Family Medicine; Visit Provider Internal Medicine Gastroenterology
DX: K74.5 Biliary cirrhosis, unspecified (principal); K74.69 Other cirrhosis of liver; B19.20 Unspecified viral hepatitis C without hepatic coma; Z85.850 Personal history of malignant neoplasm of thyroid; R79.89 Other specified abnormal findings of blood chemistry
CPT/HCPCS: 36415; 80053; 81596; 82103; 82104; 82105; 82164; 82247; 82465; 82728; 82947; 82977; 83521; 84439; 84443; 84450; 84460; 84478; 85025; 85610; 86015; 86225; 86235; 86376; 86381; 86803; 87340

== ENCOUNTER 2025-06-06 12:56 | Day surgery (SDC) | payer MEDICARE, SELFPAY ==
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
[2025-04-29 14:13] VITALS: BMI 36.6
--- NOTE | 2025-05-02 07:02 | HMH.PROCNOTE ---
[facility] Procedure Note Date: 05/02/25 Procedure Note:: Upper Endoscopy Procedure Report: Esophagogastroduodenoscopy [] Endoscopost: Yunior Bravo II, MD Referring Physician: [] Date of Procedure: May 02, 2025 Equipment: Olympus GIF-1100 standard upper endoscope Sedation: MAC sedation Indications: Mrs. Heard is an 84-year-old female who is here for diagnostic EGD. She does have a known history of cirrhosis (well compensated) presumably from TAN and upper endoscopy is warranted to rule out esophageal varices/portal hypertension. Recent labs did indicate that she has heterozygous alpha 1 antitrypsin deficiency. She had no evidence of autoimmune hepatitis or viral hepatitis. Fibrotic markers indicate F3?F4 fibrosis. She did see OLGA Tian In 2022 and 2023 but was not referred to hepatology and no serologic testing, MELD score or further evaluation was ordered. The patient has never used alcohol. She does have a history of obesity and had gastric bypass surgery 15 to 20 years ago. She also has diabetes and hypertension. She is on spironolactone 50 mg daily and verapamil. She was taking meloxicam 15 mg daily. She is on lansoprazole 30 mg p.o. twice daily. The patient does have a history of medullary thyroid cancer. Because of her history of medullary thyroid cancer or MEN 2, GLP-1 agonists have not been utilized. The patient reports no prior history of encephalopathy, variceal bleeding or ascites. She has not had prior endoscopy. 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 The patient did have surveillance colonoscopy (Alysia Mcgrath MD) in February 2023 and the report states this was normal with normal anastomosis. The patient has not been vaccinated for hepatitis A or B. Liver chemistries from August 2024 showed normal transaminases (AST 31, ALT 16) and alkaline phosphatase elevated at 131. Her alkaline phosphatase levels have vacillated between 130 and 165 over the last 4 years. Procedure: Prior to the procedure, a history and physical exam was performed, and patient's medications and allergies were reviewed. The risks, benefits and alternatives of the sedation and procedure were discussed with the patient. All questions were answered and informed consent was obtained. The patient was brought to the procedure room. Patient identification and proposed procedure were verified by the physician and the nurse. The patient was placed in a left lateral decubitus position and the scope was passed under direct vision. Throughout the procedure, the patient's blood pressure, pulse, and oxygen saturations were monitored continuously. The upper GI endoscopy was accomplished without difficulty. The patient tolerated the procedure well. Findings: The scope was passed directly into the upper esophagus and advanced to the third portion of the duodenum. The post bulbar duodenum and duodenal bulb were normal with normal mucosa and conniventes. The scope was withdrawn through a normal duodenal bulb and pylorus into the stomach. []. The scope was then withdrawn into the esophagus. The remainder of the esophageal mucosa was normal. Impression: 1. [] Plan: []
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
--- NOTE | 2025-06-06 07:08 | HMH.PROCNOTE ---
[facility] Procedure Note Date: 06/06/25 Time: 13:54 Procedure Note:: Upper Endoscopy Procedure Report: Esophagogastroduodenoscopy with cold biopsies Endoscopost: Yunior Bravo II, MD Referring Physician: Blair Lora MD Date of Procedure: June 06, 2025 Equipment: Olympus GIF-1100 standard upper endoscope Sedation: MAC sedation Indications: Mrs. Heard is an 85-year-old female who is here for diagnostic EGD. The patient does have a history of suspected TAN and well compensated cirrhosis. She has not had any prior EGD to rule out portal hypertension with esophageal or gastric varices. The patient did have a Maki-en-Y gastric bypass 15 to 20 years ago. She is on lansoprazole 30 mg twice daily for her GERD. She does have a history of medullary thyroid cancer and is deemed not a candidate for GLP-1 agonists because of this. 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 The patient does have a prior history of an advanced adenomatous colon polyp (tubulovillous adenoma) of the right colon and had prior right hemicolectomy. Her last surveillance colonoscopy was in February 2023 and was normal (Alysia Mcgrath MD). The examination is deemed medically necessary for diagnostic EGD. Procedure: Prior to the procedure, a history and physical exam was performed, and patient's medications and allergies were reviewed. The risks, benefits and alternatives of the sedation and procedure were discussed with the patient. All questions were answered and informed consent was obtained. The patient was brought to the procedure room. Patient identification and proposed procedure were verified by the physician and the nurse. The patient was placed in a left lateral decubitus position and the scope was passed under direct vision. Throughout the procedure, the patient's blood pressure, pulse, and oxygen saturations were monitored continuously. The upper GI endoscopy was accomplished without difficulty. The patient tolerated the procedure well. Findings: The scope was passed directly into the upper esophagus and advanced to the third portion of the duodenum. The post bulbar duodenum and duodenal bulb were normal with normal mucosa and conniventes. 2 cold biopsies were taken from the second portion of the duodenum for the disaccharidase assay. The scope was withdrawn through a normal duodenal bulb and pylorus into the stomach. There was gastric sleeve anatomy. There was some bile reflux with linear reactive gastropathy of the antrum. There was smaller luminal diameter of the body and fundus. There was some mild proximal gastritis. Upon retroflexion there was no hiatal hernia and no gastric varices. The scope was then withdrawn into the esophagus. There was no evidence of reflux esophagitis or Moya's. There were no esophageal varices. The remainder of the esophageal mucosa was normal. Impression: 1. 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 Bile reflux with linear reactive gastropathy and mild chronic gastritis Plan: There was no evidence of portal hypertension or esophageal varices. I will discuss the findings with the patient and family. I will follow-up the biopsies and disaccharidase assay.
[2025-06-06 13:23] VITALS: BP 149/80; PULSE 96; RESP 16; TEMP 36.3; O2SAT 98; BMI 44.5
[2025-06-06] MEDS: LACTATED RINGERS 1000ML 1,000 ML 50 ML IV (13:34)
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
[2025-06-06 13:41] LABS: POC Glucose,Bedside 129 gm/dL (70-110)
[2025-06-06 13:56] VITALS: BP 105/69; PULSE 83; RESP 18; TEMP 36.4; O2SAT 97
[2025-06-06 14:06] VITALS: BP 125/71; PULSE 76; RESP 18; TEMP 36.4; O2SAT 96
[2025-06-06 14:16] VITALS: BP 145/80; PULSE 73; RESP 18; TEMP 36.4; O2SAT 96
[2025-06-06 14:26] VITALS: BP 136/84; PULSE 71; RESP 18; TEMP 36.4; O2SAT 97
[2025-06-09 14:45] LABS: Interpretation Notes (.); Lactase 12.34 (>/= 14.0); Maltase 114.48 (>/= 110.0); Palatinase 7.86 (>/= 8.5); Reference Notes (.); Sucrase 24.69 (>/= 25.0)
== END 2025-06-06 14:40 | disposition home or self-care (01) ==
PROVIDERS: PCP Family Medicine; Visit Provider Internal Medicine Gastroenterology
PROC: 0DJ08ZZ Inspection of Upper Intestinal Tract, Via Natural or Artificial Opening Endoscopic (ICD-10-PCS; CPT 43239; principal; 2025-06-06 15:30)
DX: K31.89 Other diseases of stomach and duodenum (principal); K29.50 Unspecified chronic gastritis without bleeding; K21.9 Gastro-esophageal reflux disease without esophagitis; E88.01 Alpha-1-antitrypsin deficiency; K75.81 Nonalcoholic steatohepatitis (NASH); D12.6 Benign neoplasm of colon, unspecified; K55.069 Acute infarction of intestine, part and extent unspecified; K74.60 Unspecified cirrhosis of liver; I25.119 Atherosclerotic heart disease of native coronary artery with unspecified angina pectoris; I10 Essential (primary) hypertension; E11.9 Type 2 diabetes mellitus without complications; Z79.4 Long term (current) use of insulin; E78.5 Hyperlipidemia, unspecified; Z86.0101 Personal history of adenomatous and serrated colon polyps; Z90.49 Acquired absence of other specified parts of digestive tract; Z98.84 Bariatric surgery status
CPT/HCPCS: 43239; 82657; 82962; 88305; J2003; J2704; J7120